=== PATIENT | female | born 1960 | race African-American/Black ===

== ENCOUNTER 2016-09-03 12:48 | Inpatient (IN) | payer OTHER ==
[2016-09-03 14:58] VITALS: BMI 45.7
--- NOTE | 2016-09-03 16:34 | HP ---
CIWA Score - CIWA Score Nausea/Vomitin-Mild Nausea/No Vomiting Muscle Tremors: 4-Moderate,w/Arms Extend Anxiety: 4-Mod. Anxious/Guarded Agitation: 4-Moderately Restless Paroxysmal Sweats: 1-Minimal Palms Moist Orientation: 0-Oriented Tacttile Disturbances: 0-None Auditory Disturbances: 0-None Visual Disturbances: 0-None Headache: 2-Mild CIWA-Ar Total Score: 16 Admission ROS BHS - HPI Chief Complaint: withdrawal sx Allergies/Adverse Reactions: Allergies Allergy/AdvReac Type Severity Reaction Status Date / Time Sulfa (Sulfonamide Allergy Hives Verified 09/03/16 15:27 Antibiotics) History of Present Illness: 56 years old female with long history of alcohol cocaine dependence, has hypertension diabetes ii asthma and depression is admitted to detox Exam Limitations: No Limitations - Ebola screening Have you traveled outside of the country in the last 21 days: No Have you had contact with anyone from an Ebola affected area: No Have you been sick,other than usual withdrawal symptoms: No Do you have a fever: No - Review of Systems Constitutional: Chills, Changes in sleep, Weight Stable EENT: reports: No Symptoms Reported Respiratory: reports: SOB with Exertion Cardiac: reports: No Symptoms Reported GI: reports: Nausea, Poor Fluid Intake, Abdominal cramping : reports: No Symptoms Reported Musculoskeletal: reports: No Symptoms Reported Integumentary: reports: No Symptoms Reported Neuro: reports: Tremors Endocrine: reports: No Symptoms Reported Hematology: reports: No Symptoms Reported Psychiatric: reports: Judgement Intact, Orientated x3, Depressed Other Systems: Reviewed and Negative Patient History - Patient Medical History Hx Anemia: No Hx Asthma: Yes Hx Chronic Obstructive Pulmonary Disease (COPD): No Hx Cancer: No Hx Cardiac Disorders: No Hx Congestive Heart Failure: No Hx Hypertension: Yes Hx Hypercholesterolemia: Yes (ON MEDS) Hx Pacemaker: No HX Cerebrovascular Accident: No Hx Seizures: No Hx Dementia: No Hx Diabetes: Yes (BGM 193) Hx Gastrointestinal Disorders: No Hx Liver Disease: No Hx Genitourinary Disorders: No Hx Sexually Transmitted Disorders: No Hx Renal Disease (ESRD): No Hx Thyroid Disease: No Hx Human Immunodeficiency Virus (HIV): No (negative) Hx Hepatitis C: No Hx Depression: Yes Hx Suicide Attempt: No Hx Bipolar Disorder: No Hx Schizophrenia: No - Patient Surgical History Past Surgical History: Yes Hx Neurologic Surgery: No Hx Cataract Extraction: No Hx Cardiac Surgery: Yes (at age of 8yrs old) Hx Lung Surgery: No Hx Breast Surgery: No Hx Breast Biopsy: No Hx Abdominal Surgery: No Hx Appendectomy: No Hx Cholecystectomy: No Hx Genitourinary Surgery: No Hx Section: No Hx Orthopedic Surgery: No Hx Hysterectomy: No Anesthesia Reaction: No - PPD History Previous Implant?: No Documented Results: Positive w/o proof Implanted On Prior [facility] Admission?: No PPD to be Administered?: No - Reproductive History Patient is a Female of Child Bearing Age (11 -55 yrs old): Yes Last Menstrual Period: 09/01/16 Patient : No - Smoking Cessation Smoking history: Former smoker Have you smoked in the past 12 months: No If you are a former smoker, when did you quit?: 20yrs ago Cigars Per Day: 0 Hx Chewing Tobacco Use: No Initiated information on smoking cessation: No - Substance & Tx. History Hx Alcohol Use: Yes Hx Substance Use: Yes Substance Use Type: Alcohol, Cocaine Hx Substance Use Treatment: Yes - Substances Abused Alcohol Route: Oral Frequency: Daily Amount used: vodka(2 pints) Age of first use: 32 Date of Last Use: 09/02/16 Cocaine Route: Inhalation Frequency: Daily Amount used: 8 ball Age of first use: 32 Date of Last Use: 09/09/16 Family Disease History - Family Disease History Family Disease History: CA: Mother (), Other: Father (ESTRANGED), Sister () Admission Physical Exam BHS - Vital Signs Vital Signs: Vital Signs - 24 hr 09/03/16 14:56 Temperature 97 F L Pulse Rate 81 Respiratory 20 Rate Blood Pressure 112/67 - Physical General Appearance: Yes: Appropriately Dressed, Mild Distress, Obese, Tremorous , Irritable, Sweating, Anxious HEENTM: Yes: Hearing grossly Normal, Normal ENT Inspection, Normocephalic, Normal Voice Respiratory: Yes: Chest Non-Tender, No Respiratory Distress, No Accessory Muscle Use, Wheezing, Expiration Neck: Yes: Supple, Trachea in good position Breast: Yes: Breasts Symetrical Cardiology: Yes: Regular Rhythm, Regular Rate, S1, S2 Abdominal: Yes: Non Tender, Soft Genitourinary: Yes: Within Normal Limits Back: Yes: Normal Inspection Musculoskeletal: Yes: full range of Motion, Gait Steady Extremities: Yes: Normal Range of Motion, Non-Tender, Tremors Neurological: Yes: Alert, Motor Strength 5/5, Normal Mood/Affect, Normal Response Integumentary: Yes: Warm Lymphatic: Yes: Within Normal Limits - Diagnostic (1) Alcohol dependence with uncomplicated withdrawal Current Visit: Yes Status: Acute (2) COPD with asthma Current Visit: Yes Status: Acute (3) Hypercholesteremia Current Visit: Yes Status: Acute (4) Hypertension Current Visit: Yes Status: Acute Qualifiers: Hypertension type: essential hypertension Qualified Code(s): I10 - Essential (primary) hypertension Comment: LISINOPRIL+METOPROLOL (5) Positive PPD, treated Current Visit: Yes Status: Acute (6) Diabetes mellitus, type II, insulin dependent Current Visit: Yes Status: Acute Comment: BGM BID BEFORE BREAKFAST+BEFORE BED TIME LANTUS 40 UNITS HS NOVOLOG 20 UNITS ACBK Cleared for Admission S - Detox or Rehab S Level of Care: Medically Managed Detox Regimen/Protocol: Librium S Breath Alcohol Content Breath Alcohol Content: 0 Urine Pregancy Test - Result Urine Test Results: Negative- NO Line Present Urine Drug Screen - Results Drug Screen Negative: No Urine Drug Screen Results: STONE-Cocaine
[2016-09-03] MEDS ORDERED: P-EPHED 60MG/TRIPROLIDI 2.5MG TABLET PO PRN (16:35)
[2016-09-03] MEDS ORDERED: MAGNESIUM CITRATE 300 ML BOTTLE PO PRN (16:35)
[2016-09-03] MEDS ORDERED: chlordiazePOXIDE HCL 25 MG CAPSULE PO PRN (16:35)
[2016-09-03] MEDS ORDERED: MAG HYDROX/AL HYDROX/SIMETH 30 ML UNIT-DOSE CUP PO PRN (16:35)
[2016-09-03] MEDS ORDERED: IBUPROFEN 400 MG TABLET (FP) PO PRN (16:35)
[2016-09-03] MEDS ORDERED: hydrOXYzine PAMOATE 50 MG CAPSULE (FP) PO PRN (16:35)
[2016-09-03] MEDS ORDERED: ACETAMINOPHEN 325 MG TABLET (FP) PO PRN (16:35)
[2016-09-03] MEDS ORDERED: guaiFENesin/D-METHORPHAN HB 10 ML UNIT-DOSE CUPS PO PRN (16:35)
[2016-09-03] MEDS ORDERED: MAGNESIUM HYDROX 2400MG/30ML ORAL SUSPENSION 30 ML CUP PO PRN (16:35)
[2016-09-03] MEDS ORDERED: LOPERAMIDE HCL 2 MG CAPSULE PO PRN (16:35)
[2016-09-03] MEDS ORDERED: MENTHOL/PHENOL 1 EACH UD MM PRN (16:35)
[2016-09-03] MEDS ORDERED: ALBUTEROL SO4 2.5/IPRATROPIUM 0.5 INH SOL 3 ML VIAL.NEB. NEB PRN (16:36)
[2016-09-03] MEDS ORDERED: ALBUTEROL SO4 6.7 GM HFA INHALER IH PRN (16:36)
[2016-09-03 20:00] LABS: URINE APPEARANCE CLEAR; URINE BILIRUBIN NEGATIVE (NEGATIVE); URINE COLOR YELLOW; URINE GLUCOSE (UA) 1+ (NEGATIVE); URINE KETONE NEGATIVE (NEGATIVE); URINE LEUK ESTERASE NEGATIVE (NEGATIVE); URINE NITRITE NEGATIVE (NEGATIVE); URINE PROTEIN NEGATIVE (NEGATIVE); URINE UROBILINOGEN NEGATIVE E.U./dl (0.2-1.0)
[2016-09-03 20:10] LABS: URINE BLOOD 3+ (NEGATIVE)
[2016-09-03 20:13] LABS: URINE RBC 6 /hpf (0-3); URINE WBC <1 /hpf (3-5)
[2016-09-03] MEDS ORDERED: diazePAM 5 MG TABLET PO PRN (20:38)
[2016-09-03] MEDS ORDERED: diazePAM 5 MG TABLET PO ONE (20:38)
--- NOTE | 2016-09-03 20:41 | PN ---
[facility] Progress Note Note: patient brought down to [facility] from [facility] by staff patient reports that she prefers valium detox regiment discontinue librium regimen begin valium regimen continue detox
[2016-09-03] MEDS: INSULIN DETEMIR 100 UNITS/ML MDV SQ SCH (21:33)
[2016-09-03] MEDS: INSULIN SLIDING SCALE (NOVOLOG) 1 VIAL SQ SCH (21:36)
[2016-09-03] MEDS: BUDESONIDE/FORMETEROL FUMARATE 80/4.5 mcg INHALER IH SCH (22:32)
[2016-09-03] MEDS: diazePAM 5 MG TABLET PO SCH (22:33)
[2016-09-03] MEDS: MONTELUKAST NA 10 MG TABLET PO SCH (22:33)
[2016-09-03] MEDS: APIXABAN 5 MG TABLET PO SCH (22:33)
[2016-09-03] MEDS: THIAMINE HCL 100 MG TABLET (FP) PO SCH (22:33)
[2016-09-03] MEDS: ATORVASTATIN CA 40 MG TABLET (FP) PO SCH (22:33)
[2016-09-03] MEDS: METOPROLOL TARTRATE 25 MG TABLET (FP) PO SCH (22:34)
[2016-09-03] MEDS ORDERED: chlordiazePOXIDE HCL 25 MG CAPSULE PO SCH (23:00)
[2016-09-04] MEDS: diazePAM 5 MG TABLET PO SCH ×3 (06:33→23:03)
[2016-09-04] MEDS ORDERED: Insulin (LOG) Aspart 100 UNITS/ML VIAL SQ SCH (07:00)
[2016-09-04] MEDS ORDERED: INSULIN (NOVOLOG) ASPART 100 UNITS/ML 10ML VIAL SQ SCH (07:00)
[2016-09-04] MEDS ORDERED: INSULIN (NOVOLOG) ASPART 100 UNITS/ML 10ML VIAL SQ ONE (08:30)
[2016-09-04] MEDS: INSULIN SLIDING SCALE (NOVOLOG) 1 VIAL SQ SCH ×4 (08:37→23:45)
[2016-09-04 10:45] LABS: MCHC 32.6 g/dl (32.0-36.0); MEAN PLT VOLUME 9.4 fl (7.5-11.1); PLATELET COUNT 305 K/MM3 (134-434); RDW 14.7 % (11.6-15.6); WHITE BLOOD COUNT 10.6 K/mm3 (4.0-10.0)
[2016-09-04 10:51] LABS: INR 1.26 (0.82-1.09); PROTHROMBIN TIME (PATIENT) 13.9 SEC (9.98-11.88)
[2016-09-04] MEDS: BUDESONIDE/FORMETEROL FUMARATE 80/4.5 mcg INHALER IH SCH ×2 (11:34→22:54)
[2016-09-04] MEDS: APIXABAN 5 MG TABLET PO SCH ×2 (11:35→22:54)
[2016-09-04] MEDS: METOPROLOL TARTRATE 25 MG TABLET (FP) PO SCH ×2 (11:35→22:53)
[2016-09-04] MEDS: LISINOPRIL 20 MG TABLET (FP) PO SCH (11:35)
[2016-09-04] MEDS: PRENATAL VITAMINS W/ FOLIC ACID TABLET (FP) PO SCH (11:36)
[2016-09-04 11:57] LABS: ALBUMIN 4.2 g/dl (3.4-5.0); CALCIUM 8.9 mg/dL (8.5-10.1)
[2016-09-04 12:01] LABS: BILIRUBIN,TOTAL 0.4 mg/dL (0.2-1.0); CREATININE 1.1 mg/dL (0.55-1.02); TOT PROT 7.3 g/dl (6.4-8.2)
[2016-09-04] MEDS ORDERED: INSULIN (NOVOLOG) ASPART 100 UNITS/ML 10ML VIAL ONE ×3 (12:14→23:41)
[2016-09-04] MEDS ORDERED: COLLOIDAL OATMEAL 1 BAR EACH TP PRN (12:35)
--- NOTE | 2016-09-04 14:25 | PN ---
[facility] CIWA - CIWA Score Nausea/Vomitin Muscle Tremors: 3 Anxiety: 3 Agitation: 2 Paroxysmal Sweats: 1-Minimal Palms Moist Orientation: 0-Oriented Tacttile Disturbances: 1-Very Mild Itch/Numbness Auditory Disturbances: 1-Very Mild Visual Disturbances: 1-Very Mild Sensitivity Headache: 2-Mild CIWA-Ar Total Score: 17 BHS Progress Note (SOAP) Subjective: ALERT,IRRITABLE,ANXIOUS,INTERRUPTED SLEEP,TREMOR Objective: 09/04/16 14:22 Vital Signs Temperature 97.3 F L 09/04/16 10:41 Pulse Rate 74 09/04/16 10:41 Respiratory Rate 16 09/04/16 10:41 Blood Pressure 134/69 09/04/16 10:41 O2 Sat by Pulse Oximetry (%) EKG NSR WITH RARE APC NO CHEST PAIN,NO SOB,NO DIZZINESS Laboratory Last Values WBC 10.6 K/mm3 (4.0-10.0) H 09/04/16 06:00 RBC 4.82 M/mm3 (3.60-5.2) 09/04/16 06:00 Hgb 14.0 GM/dL (10.7-15.3) 09/04/16 06:00 Hct 42.9 % (32.4-45.2) 09/04/16 06:00 MCV 89.0 fl (80-96) 09/04/16 06:00 MCHC 32.6 g/dl (32.0-36.0) 09/04/16 06:00 RDW 14.7 % (11.6-15.6) 09/04/16 06:00 Plt Count 305 K/MM3 (134-434) 09/04/16 06:00 MPV 9.4 fl (7.5-11.1) 09/04/16 06:00 INR 1.26 (0.82-1.09) H 09/04/16 08:13 Sodium 141 mmol/L (136-145) 09/04/16 06:00 Potassium 3.8 mmol/L (3.5-5.1) 09/04/16 06:00 Chloride 105 mmol/L (98-107) 09/04/16 06:00 Carbon Dioxide 29 mmol/L (21-32) 09/04/16 06:00 Anion Gap 7 (8-16) L 09/04/16 06:00 BUN 15 mg/dL (7-18) 09/04/16 06:00 Creatinine 1.1 mg/dL (0.55-1.02) H D 09/04/16 06:00 Creat Clearance w eGFR 51.76 (>60) 09/04/16 06:00 POC Glucometer 221 UNITS (()) 09/04/16 11:39 Random Glucose 155 mg/dL (74-106) H 09/04/16 06:00 Calcium 8.9 mg/dL (8.5-10.1) 09/04/16 06:00 Total Bilirubin 0.4 mg/dL (0.2-1.0) D 09/04/16 06:00 AST 13 U/L (15-37) L 09/04/16 06:00 ALT 27 U/L (12-78) 09/04/16 06:00 Alkaline Phosphatase 96 U/L (45-117) 09/04/16 06:00 Total Protein 7.3 g/dl (6.4-8.2) 09/04/16 06:00 Albumin 4.2 g/dl (3.4-5.0) 09/04/16 06:00 Urine Color Yellow 09/03/16 19:36 Urine Appearance Clear 09/03/16 19:36 Urine pH 5.0 (5.0-8.0) 09/03/16 19:36 Ur Specific [place] 1.025 (1.001-1.035) 09/03/16 19:36 Urine Protein Negative (NEGATIVE) 09/03/16 19:36 Urine Glucose (UA) 1+ (NEGATIVE) H 09/03/16 19:36 Urine Ketones Negative (NEGATIVE) 09/03/16 19:36 Urine Blood 3+ (NEGATIVE) H 09/03/16 19:36 Urine Nitrite Negative (NEGATIVE) 09/03/16 19:36 Urine Bilirubin Negative (NEGATIVE) 09/03/16 19:36 Urine Urobilinogen Negative E.U./dl (0.2-1.0) 09/03/16 19:36 Ur Leukocyte Esterase Negative (NEGATIVE) 09/03/16 19:36 Urine RBC 6 /hpf (0-3) 09/03/16 19:36 Urine WBC <1 /hpf (3-5) 09/03/16 19:36 Ur Epithelial Cells Few /hpf (FEW) 09/03/16 19:36 Assessment: 09/04/16 14:24 WITHDRAWAL SYMPTOM Plan: CONTINUE DETOX,BGM MONITORING WITH INSULIN COVERAGE
[2016-09-04] MEDS: MONTELUKAST NA 10 MG TABLET PO SCH (22:53)
[2016-09-04] MEDS: ATORVASTATIN CA 40 MG TABLET (FP) PO SCH (22:53)
[2016-09-04] MEDS: THIAMINE HCL 100 MG TABLET (FP) PO SCH (22:54)
[2016-09-04] MEDS ORDERED: chlordiazePOXIDE HCL 25 MG CAPSULE PO SCH (23:00)
[2016-09-04] MEDS: INSULIN DETEMIR 100 UNITS/ML MDV SQ SCH (23:01)
[2016-09-05] MEDS: INSULIN (NOVOLOG) ASPART 100 UNITS/ML 10ML VIAL SQ SCH (08:31)
[2016-09-05] MEDS: INSULIN SLIDING SCALE (NOVOLOG) 1 VIAL SQ SCH ×4 (08:32→23:26)
[2016-09-05] MEDS: METOPROLOL TARTRATE 25 MG TABLET (FP) PO SCH ×2 (10:26→22:24)
[2016-09-05] MEDS: APIXABAN 5 MG TABLET PO SCH ×2 (10:26→22:24)
[2016-09-05] MEDS: LISINOPRIL 20 MG TABLET (FP) PO SCH (10:26)
[2016-09-05] MEDS: PRENATAL VITAMINS W/ FOLIC ACID TABLET (FP) PO SCH (10:27)
[2016-09-05] MEDS: diazePAM 5 MG TABLET PO SCH ×2 (10:27→22:26)
[2016-09-05] MEDS: BUDESONIDE/FORMETEROL FUMARATE 80/4.5 mcg INHALER IH SCH ×2 (10:27→22:26)
[2016-09-05] MEDS ORDERED: INSULIN (NOVOLOG) ASPART 100 UNITS/ML 10ML VIAL ONE ×2 (11:26→16:54)
--- NOTE | 2016-09-05 13:01 | PN ---
S COWS - Scale Resting Pulse: 0= [place] 80 or Below Sweatin=Flushed/Facial Moisture Restless Observation: 3= Extraneous Movement Pupil Size: 1= Pupils >than Normal Bone or Joint Aches: 2= Severe Diffuse Aches Runny Nose/ Eye Tearin= Runny Nose/Eyes GI Upset > 30mins: 2= Nausea/Diarrhea Tremor Observation of Outstretched Hands: 2= Slight Tremor Visible Yawning Observation: 1= 1-2x During Session Anxiety or Irritability: 2=Irritable/Anxious Goose Flesh Skin: 0=Smooth Skin COWS Score: 17 BHS Progress Note (SOAP) Subjective: ALERT,IRRITABLE,ANXIOUS,INTERRUPTED SLEEP,PAIN IN THE BODY AND BACK Objective: 09/05/16 12:58 Vital Signs Temperature 97.7 F 09/05/16 10:04 Pulse Rate 67 09/05/16 10:04 Respiratory Rate 18 09/05/16 10:04 Blood Pressure 138/90 09/05/16 10:04 O2 Sat by Pulse Oximetry (%) 09/05/16 12:58 Laboratory Last Values WBC 10.6 K/mm3 (4.0-10.0) H 09/04/16 06:00 RBC 4.82 M/mm3 (3.60-5.2) 09/04/16 06:00 Hgb 14.0 GM/dL (10.7-15.3) 09/04/16 06:00 Hct 42.9 % (32.4-45.2) 09/04/16 06:00 MCV 89.0 fl (80-96) 09/04/16 06:00 MCHC 32.6 g/dl (32.0-36.0) 09/04/16 06:00 RDW 14.7 % (11.6-15.6) 09/04/16 06:00 Plt Count 305 K/MM3 (134-434) 09/04/16 06:00 MPV 9.4 fl (7.5-11.1) 09/04/16 06:00 INR 1.26 (0.82-1.09) H 09/04/16 08:13 Sodium 141 mmol/L (136-145) 09/04/16 06:00 Potassium 3.8 mmol/L (3.5-5.1) 09/04/16 06:00 Chloride 105 mmol/L (98-107) 09/04/16 06:00 Carbon Dioxide 29 mmol/L (21-32) 09/04/16 06:00 Anion Gap 7 (8-16) L 09/04/16 06:00 BUN 15 mg/dL (7-18) 09/04/16 06:00 Creatinine 1.1 mg/dL (0.55-1.02) H D 09/04/16 06:00 Creat Clearance w eGFR 51.76 (>60) 09/04/16 06:00 POC Glucometer 214 UNITS (()) 09/05/16 11:22 Random Glucose 155 mg/dL (74-106) H 09/04/16 06:00 Hemoglobin A1c % 9.1 % (4.8-6.0) H D 09/05/16 07:16 Calcium 8.9 mg/dL (8.5-10.1) 09/04/16 06:00 Total Bilirubin 0.4 mg/dL (0.2-1.0) D 09/04/16 06:00 AST 13 U/L (15-37) L 09/04/16 06:00 ALT 27 U/L (12-78) 09/04/16 06:00 Alkaline Phosphatase 96 U/L (45-117) 09/04/16 06:00 Total Protein 7.3 g/dl (6.4-8.2) 09/04/16 06:00 Albumin 4.2 g/dl (3.4-5.0) 09/04/16 06:00 Urine Color Yellow 09/03/16 19:36 Urine Appearance Clear 09/03/16 19:36 Urine pH 5.0 (5.0-8.0) 09/03/16 19:36 Ur Specific [place] 1.025 (1.001-1.035) 09/03/16 19:36 Urine Protein Negative (NEGATIVE) 09/03/16 19:36 Urine Glucose (UA) 1+ (NEGATIVE) H 09/03/16 19:36 Urine Ketones Negative (NEGATIVE) 09/03/16 19:36 Urine Blood 3+ (NEGATIVE) H 09/03/16 19:36 Urine Nitrite Negative (NEGATIVE) 09/03/16 19:36 Urine Bilirubin Negative (NEGATIVE) 09/03/16 19:36 Urine Urobilinogen Negative E.U./dl (0.2-1.0) 09/03/16 19:36 Ur Leukocyte Esterase Negative (NEGATIVE) 09/03/16 19:36 Urine RBC 6 /hpf (0-3) 09/03/16 19:36 Urine WBC <1 /hpf (3-5) 09/03/16 19:36 Ur Epithelial Cells Few /hpf (FEW) 09/03/16 19:36 RPR Titer Nonreactive (NONREACTIVE) 09/04/16 06:00 Assessment: 09/05/16 12:58 09/05/16 13:01 CONTINUE DETOX,BGM MONITORING,FOLLOW UP WITH PMD FOR DIABETIC MANAGEMENT HB A1C IS 9.1 Plan: CONTINUE DETOX,BGM MONITORING WITH INSULIN COVERAGE
[2016-09-05] MEDS: VITAMINS A AND D TOPICAL OINTMENT 60 GM TUBE TP SCH (19:19)
[2016-09-05] MEDS: THIAMINE HCL 100 MG TABLET (FP) PO SCH (22:24)
[2016-09-05] MEDS: MONTELUKAST NA 10 MG TABLET PO SCH (22:24)
[2016-09-05] MEDS: ATORVASTATIN CA 40 MG TABLET (FP) PO SCH (22:24)
[2016-09-05] MEDS: diphenhydrAMINE HCL 50 MG CAPSULE PO PRN (22:27)
[2016-09-05] MEDS ORDERED: chlordiazePOXIDE 5 MG CAPSULE PO SCH (23:00)
[2016-09-05] MEDS: INSULIN DETEMIR 100 UNITS/ML MDV SQ SCH (23:26)
[2016-09-06] MEDS: VITAMINS A AND D TOPICAL OINTMENT 60 GM TUBE TP SCH ×5 (00:59→23:10)
[2016-09-06] MEDS ORDERED: INSULIN (NOVOLOG) ASPART 100 UNITS/ML 10ML VIAL ONE ×4 (07:38→21:18)
[2016-09-06] MEDS: INSULIN (NOVOLOG) ASPART 100 UNITS/ML 10ML VIAL SQ SCH (07:58)
[2016-09-06] MEDS: INSULIN SLIDING SCALE (NOVOLOG) 1 VIAL SQ SCH ×4 (08:02→22:39)
[2016-09-06] MEDS: diazePAM 5 MG TABLET PO SCH ×2 (10:36→23:09)
[2016-09-06] MEDS: BUDESONIDE/FORMETEROL FUMARATE 80/4.5 mcg INHALER IH SCH ×2 (10:36→22:39)
[2016-09-06] MEDS: LISINOPRIL 20 MG TABLET (FP) PO SCH (10:36)
[2016-09-06] MEDS: APIXABAN 5 MG TABLET PO SCH ×2 (10:36→22:36)
[2016-09-06] MEDS: PRENATAL VITAMINS W/ FOLIC ACID TABLET (FP) PO SCH (10:36)
[2016-09-06] MEDS: METOPROLOL TARTRATE 25 MG TABLET (FP) PO SCH ×2 (10:36→22:36)
--- NOTE | 2016-09-06 10:58 | PN ---
[facility] Progress Note (SOAP) Subjective: sweats interrupted sleep Objective: 09/06/16 10:57 Vital Signs Temperature 97.5 F L 09/06/16 10:19 Pulse Rate 75 09/06/16 10:19 Respiratory Rate 18 09/06/16 10:19 Blood Pressure 112/66 09/06/16 10:19 O2 Sat by Pulse Oximetry (%) awake/alert ambulating no acute distress Assessment: 09/06/16 10:57 withdrawal sx Plan: continue detox d/c in am
[2016-09-06] MEDS: MONTELUKAST NA 10 MG TABLET PO SCH (22:36)
[2016-09-06] MEDS: diphenhydrAMINE HCL 50 MG CAPSULE PO PRN (22:36)
[2016-09-06] MEDS: ATORVASTATIN CA 40 MG TABLET (FP) PO SCH (22:36)
[2016-09-06] MEDS: THIAMINE HCL 100 MG TABLET (FP) PO SCH (22:36)
[2016-09-06] MEDS: INSULIN DETEMIR 100 UNITS/ML MDV SQ SCH (22:39)
[2016-09-06] MEDS ORDERED: chlordiazePOXIDE HCL 10 MG CAPSULE PO SCH (23:00)
[2016-09-07] MEDS: INSULIN (NOVOLOG) ASPART 100 UNITS/ML 10ML VIAL SQ SCH (07:46)
[2016-09-07] MEDS: INSULIN SLIDING SCALE (NOVOLOG) 1 VIAL SQ SCH ×2 (07:47→11:29)
--- NOTE | 2016-09-07 09:27 | DS ---
[facility] Detox Discharge Summary Admission Date: 09/03/16 Discharge Date: 09/07/16 - History Present History: Alcohol Dependence, Cocaine Dependence - Physical Exam Results Vital Signs: Vital Signs Temperature 97.5 F L 09/07/16 06:51 Pulse Rate 60 09/07/16 06:51 Respiratory Rate 16 09/07/16 06:51 Blood Pressure 129/84 09/07/16 06:51 O2 Sat by Pulse Oximetry (%) - Treatment Hospital Course: Detox Protocol Followed, Detoxed Safely, Responded well, Discharged Condition Good - Medication Discharge Medications: Ambulatory Orders Atorvastatin Ca [Lipitor] 40 mg PO HS #30 tablet 04/04/15 Albuterol Sulfate Inhaler - [Ventolin HFA Inhaler -] 2 inh PO Q4H PRN #1 inh Apixaban [Eliquis -] 5 mg PO Q12H #30 tablet 11/18/15 Budesonide/Formeterol Fumarate [SYMBICORT 80/4.5mcg -] 2 puff IH BID #1 inhaler 11/18/15 Fluticasone/Salmeterol [Advair 250-50 Diskus] 1 each IH BID #1 disk.w.dev Insulin (Levemir) [Levemir Vial] 40 units SQ HS #1 ml 11/18/15 Lisinopril [Prinivil] 20 mg PO DAILY #30 tablet 11/18/15 Metoprolol Tartrate [Lopressor -] 25 mg PO BID #60 tablet 11/18/15 Montelukast Na [Singulair -] 10 mg PO HS #30 tablet 11/18/15 Tiotropium [place] [Spiriva] 1 inh PO DAILY #1 inh 11/18/15 Insulin Lispro [Humalog] 20 unit SQ ACBK 09/03/16 - Diagnosis (1) Alcohol dependence with uncomplicated withdrawal Current Visit: Yes Status: Chronic (2) COPD with asthma Current Visit: Yes Status: Chronic (3) Diabetes mellitus, type II, insulin dependent Current Visit: Yes Status: Chronic (4) Hypercholesteremia Current Visit: Yes Status: Chronic (5) Hypertension Current Visit: Yes Status: Chronic Qualifiers: Hypertension type: essential hypertension Qualified Code(s): I10 - Essential (primary) hypertension (6) Cocaine dependence Current Visit: Yes Status: Chronic Qualifiers: Substance use status: uncomplicated Qualified Code(s): F14.20 - Cocaine dependence, uncomplicated (7) Diabetes mellitus Current Visit: Yes Status: Chronic Qualifiers: Diabetes mellitus type: type 2 Diabetes mellitus complication status: without complication (8) History of atrial fibrillation Current Visit: Yes Status: Chronic - AMA Did Patient Leave Against Medical Advice: No
[2016-09-07] MEDS ORDERED: diazePAM 5 MG TABLET PO SCH (10:00)
[2016-09-07] MEDS: BUDESONIDE/FORMETEROL FUMARATE 80/4.5 mcg INHALER IH SCH (10:46)
[2016-09-07] MEDS: PRENATAL VITAMINS W/ FOLIC ACID TABLET (FP) PO SCH (10:46)
[2016-09-07] MEDS: APIXABAN 5 MG TABLET PO SCH (10:46)
[2016-09-07] MEDS: LISINOPRIL 20 MG TABLET (FP) PO SCH (10:48)
[2016-09-07] MEDS: METOPROLOL TARTRATE 25 MG TABLET (FP) PO SCH (10:48)
[2016-09-07] MEDS: VITAMINS A AND D TOPICAL OINTMENT 60 GM TUBE TP SCH ×2 (10:49→11:29)
[2016-09-07] MEDS ORDERED: INSULIN (NOVOLOG) ASPART 100 UNITS/ML 10ML VIAL ONE (11:25)
[2016-09-07 11:28] VITALS: BP 133/56; PULSE 73; TEMP 98.6
--- NOTE | 2016-09-07 16:59 | EKG ---
Test Reason : Blood Pressure : / mmHG Vent. Rate : 093 BPM Atrial Rate : 089 BPM P-R Int : 000 ms QRS Dur : 086 ms QT Int : 368 ms P-R-T Axes : 069 -04 069 degrees QTc Int : 457 ms UNDETERMINED RHYTHM , LIKELY SINUS RHYTHM WITH ATRIAL PREMATURE COMPLEXES OTHERWISE NORMAL ECG NO PREVIOUS ECGS AVAILABLE Confirmed by JOHN HARDING MD ([id number]) on 09/07/2016 4:59:03 PM Referred By: Confirmed By:JOHN HARDING MD
== END 2016-09-07 11:29 | disposition other institution (70) | DRG 774 ==
LOC: YASAS 12:48 → Y6N 16:08
PROVIDERS: ADMIT Internal Medicine Addiction Medicine; ATTEND Internal Medicine Addiction Medicine
PROC: HZ2ZZZZ Detoxification Services for Substance Abuse Treatment (ICD-10-PCS; principal; 2016-09-07)
DX: F10.230 Alcohol dependence with withdrawal, uncomplicated (principal); F14.20 Cocaine dependence, uncomplicated; F32.9 Major depressive disorder, single episode, unspecified; I10 Essential (primary) hypertension; I48.2 Chronic atrial fibrillation; E11.9 Type 2 diabetes mellitus without complications; Z79.4 Long term (current) use of insulin; E78.00 Pure hypercholesterolemia, unspecified; R76.11 Nonspecific reaction to tuberculin skin test without active tuberculosis
CPT/HCPCS: 36415; 71020-TC; 80053; 81003; 81015; 83036; 85027; 85610; 86593; 93005; 93010; 94640

== ENCOUNTER 2016-09-07 11:40 | Inpatient (IN) | payer OTHER ==
[2016-09-07] MEDS ORDERED: LOPERAMIDE HCL 2 MG CAPSULE PO PRN (12:33)
[2016-09-07] MEDS ORDERED: MAGNESIUM CITRATE 300 ML BOTTLE PO PRN (12:33)
[2016-09-07] MEDS ORDERED: P-EPHED 60MG/TRIPROLIDI 2.5MG TABLET PO PRN (12:33)
[2016-09-07] MEDS ORDERED: MAGNESIUM HYDROX 2400MG/30ML ORAL SUSPENSION 30 ML CUP PO PRN (12:33)
[2016-09-07] MEDS ORDERED: guaiFENesin/D-METHORPHAN HB 10 ML UNIT-DOSE CUPS PO PRN (12:33)
[2016-09-07] MEDS ORDERED: IBUPROFEN 400 MG TABLET (FP) PO PRN (12:33)
[2016-09-07] MEDS ORDERED: ALBUTEROL SO4 6.7 GM HFA INHALER IH PRN (12:36)
--- NOTE | 2016-09-07 12:40 | HP ---
[facility] Re[facility] Assess/Revision - Admission History Admitted to Rehab from: [facility] [place] Date of Admission to Rehab: 09/07/16 - Vital signs Vital Signs: Last Vital Signs Temp Pulse Resp BP Pulse Ox 98.2 F 73 20 121/65 09/07/16 14:23 09/07/16 14:23 09/07/16 14:23 09/07/16 14:23 - Findings Detox History & Physical reviewed: Yes Concur with findings: Yes
[2016-09-07] MEDS: ACLIDINIUM BROMIDE 400 MCG/INH AERO.POWD IH SCH ×2 (15:49→21:15)
[2016-09-07] MEDS: INSULIN (NOVOLOG) ASPART 100 UNITS/ML 10ML VIAL SQ SCH ×2 (17:09→21:11)
[2016-09-07] MEDS ORDERED: INSULIN (NOVOLOG) ASPART 100 UNITS/ML 10ML VIAL ONE ×2 (17:10→21:12)
[2016-09-07] MEDS ORDERED: PT OWN MED DRAWER 7, Y5N ONE ×2 (20:01→20:22)
[2016-09-07] MEDS: APIXABAN 5 MG TABLET PO SCH (20:02)
[2016-09-07] MEDS: THIAMINE HCL 100 MG TABLET (FP) PO SCH (21:09)
[2016-09-07] MEDS: MONTELUKAST NA 10 MG TABLET PO SCH (21:10)
[2016-09-07] MEDS: ATORVASTATIN CA 40 MG TABLET (FP) PO SCH (21:10)
[2016-09-07] MEDS: diphenhydrAMINE HCL 50 MG CAPSULE PO PRN (21:10)
[2016-09-07] MEDS: METOPROLOL TARTRATE 25 MG TABLET (FP) PO SCH (21:10)
[2016-09-07] MEDS: INSULIN DETEMIR 100 UNITS/ML MDV SQ SCH (21:12)
[2016-09-07] MEDS: BUDESONIDE/FORMETEROL FUMARATE 80/4.5 mcg INHALER IH SCH (21:15)
[2016-09-07] MEDS ORDERED: ALBUTEROL SO4 2.5/IPRATROPIUM 0.5 INH SOL 3 ML VIAL.NEB. NEB PRN (22:18)
[2016-09-07] MEDS: COLLOIDAL OATMEAL 1 BAR EACH TP PRN (22:36)
[2016-09-08] MEDS: INSULIN (NOVOLOG) ASPART 100 UNITS/ML 10ML VIAL SQ SCH ×4 (06:45→21:14)
[2016-09-08] MEDS ORDERED: INSULIN (NOVOLOG) ASPART 100 UNITS/ML 10ML VIAL SQ SCH (07:00)
[2016-09-08] MEDS ORDERED: INSULIN (NOVOLOG) ASPART 100 UNITS/ML 10ML VIAL ONE ×3 (07:06→17:02)
[2016-09-08] MEDS: APIXABAN 5 MG TABLET PO SCH ×2 (08:14→21:11)
[2016-09-08] MEDS ORDERED: PT OWN MED DRAWER 7, Y5N ONE ×3 (08:22→19:50)
[2016-09-08] MEDS: LISINOPRIL 20 MG TABLET (FP) PO SCH (09:41)
[2016-09-08] MEDS: PRENATAL VITAMINS W/ FOLIC ACID TABLET (FP) PO SCH (09:41)
[2016-09-08] MEDS: BUDESONIDE/FORMETEROL FUMARATE 80/4.5 mcg INHALER IH SCH ×2 (09:42→21:15)
[2016-09-08] MEDS: ACLIDINIUM BROMIDE 400 MCG/INH AERO.POWD IH SCH ×2 (09:42→21:16)
[2016-09-08] MEDS: METOPROLOL TARTRATE 25 MG TABLET (FP) PO SCH ×2 (10:12→21:11)
--- NOTE | 2016-09-08 10:20 | HP ---
Psychiatrist Admission - Data Date of interview: 09/08/16 Admission source: [facility] Identifying data: This is the second admission to [address] [place] [address] for this 56 years old single AA female,childles,unemployed,supported by [facility], resides with family. Medical History: HTN,COPD,DM,S/P Open heart surgery at 8 years old. Psychiatric History: denies psychiatric history or treatment,no suicidal attempts reported. Physical/Sexual Abuse/Trauma History: denies Vital Signs: Vital Signs - 24 hr 09/07/16 09/07/16 09/08/16 14:23 21:00 00:30 Temperature 98.2 F Pulse Rate 73 57 L Respiratory 20 20 Rate Blood Pressure 121/65 121/63 09/08/16 09/08/16 09/08/16 03:30 07:18 09:24 Temperature 97.6 F Pulse Rate 69 100 H Respiratory 20 18 Rate Blood Pressure 87/65 114/78 Allergies/Adverse Reactions: Allergies Allergy/AdvReac Type Severity Reaction Status Date / Time Sulfa (Sulfonamide Allergy Hives Verified 09/07/16 12:17 Antibiotics) Date of last physical exam: 09/07/16 Concur with the findings of this exam: Yes - Substance Abuse/Tx History Hx Alcohol Use: Yes (drinking since 37 years ) Hx Substance Use: Yes (reports sniffing cocaine since 37 yo,$500 at once) Substance Use Type: Alcohol, Cocaine Hx Substance Use Treatment: Yes (completed this program in Mar 2015) - Admission Criteria Previous failed treatment: Yes Poor recovery environment: Yes Comorbidities: Yes Lacks judgement: Yes Mental Status Exam - Mental Status Exam Alert and Oriented to: Time, Place, Person Cognitive Function: Grossly Intact Patient Appearance: Unkempt Mood: Sad Affect: Mood Congruent Patient Behavior: Cooperative Speech Pattern: Clear Voice Loudness: Normal Thought Process: Goal Oriented Thought Disorder: Not Present Hallucinations: Denies Suicidal Ideation: Denies Homicidal Ideation: Denies Insight/Judgement: Fair Sleep: Fair Appetite: Good Muscle strength/Tone: Normal Gait/Station: Normal Psychiatric Findings - Problem List ([place] 1, 2,3) (1) Alcohol dependence Current Visit: Yes Status: Chronic (2) COPD with asthma Current Visit: Yes Status: Chronic (3) Cocaine dependence Current Visit: Yes Status: Chronic Qualifiers: Substance use status: uncomplicated Qualified Code(s): F14.20 - Cocaine dependence, uncomplicated (4) Diabetes mellitus Current Visit: Yes Status: Chronic Qualifiers: Diabetes mellitus type: type 2 Diabetes mellitus complication status: without complication Comment: last BGM 163 (5) History of atrial fibrillation Current Visit: Yes Status: Chronic Comment: takes eliquis - Initial Treatment Plan Initial Treatment Plan: Consider antidepressants ,mood stabilizers if neededWill monitor progress.
--- NOTE | 2016-09-08 11:15 | PN ---
S Progress Note Note: complained of loose bowel movement and blood sting when wiping herself, Vital Signs Temperature 97.6 F 09/08/16 07:18 Pulse Rate 100 H 09/08/16 09:24 Respiratory Rate 18 09/08/16 07:18 Blood Pressure 114/78 09/08/16 09:24 O2 Sat by Pulse Oximetry (%) treatment d/c motrin cbc,cmp,inr in am close monitoring
[2016-09-08] MEDS: VITAMINS A AND D TOPICAL OINTMENT 60 GM TUBE TP SCH ×2 (12:39→17:10)
[2016-09-08] MEDS: ATORVASTATIN CA 40 MG TABLET (FP) PO SCH (21:11)
[2016-09-08] MEDS: diphenhydrAMINE HCL 50 MG CAPSULE PO PRN (21:11)
[2016-09-08] MEDS: MONTELUKAST NA 10 MG TABLET PO SCH (21:11)
[2016-09-08] MEDS: INSULIN DETEMIR 100 UNITS/ML MDV SQ SCH (21:14)
[2016-09-08] MEDS: THIAMINE HCL 100 MG TABLET (FP) PO SCH (21:16)
[2016-09-08] MEDS ORDERED: INSULIN DETEMIR 100 UNITS/ML MDV SQ ONE (22:57)
[2016-09-09] MEDS: VITAMINS A AND D TOPICAL OINTMENT 60 GM TUBE TP SCH ×4 (00:54→18:30)
[2016-09-09] MEDS: INSULIN (NOVOLOG) ASPART 100 UNITS/ML 10ML VIAL SQ SCH ×4 (06:51→21:19)
[2016-09-09] MEDS ORDERED: INSULIN (NOVOLOG) ASPART 100 UNITS/ML 10ML VIAL ONE ×3 (07:57→16:50)
[2016-09-09] MEDS: APIXABAN 5 MG TABLET PO SCH (07:59)
[2016-09-09] MEDS ORDERED: PT OWN MED DRAWER 7, Y5N ONE ×4 (08:27→21:10)
[2016-09-09] MEDS: PRENATAL VITAMINS W/ FOLIC ACID TABLET (FP) PO SCH (09:54)
[2016-09-09] MEDS: LISINOPRIL 20 MG TABLET (FP) PO SCH (09:54)
[2016-09-09] MEDS: BUDESONIDE/FORMETEROL FUMARATE 80/4.5 mcg INHALER IH SCH ×2 (09:54→21:15)
[2016-09-09] MEDS: METOPROLOL TARTRATE 25 MG TABLET (FP) PO SCH ×2 (09:54→21:15)
[2016-09-09 10:05] LABS: MCH 28.9 pg (25.7-33.7); MCHC 32.6 g/dl (32.0-36.0); MEAN CELL VOLUME 88.5 fl (80-96); MEAN PLT VOLUME 9.6 fl (7.5-11.1); PLATELET COUNT 255 K/MM3 (134-434); RDW 14.7 % (11.6-15.6); WHITE BLOOD COUNT 10.4 K/mm3 (4.0-10.0)
[2016-09-09 10:24] LABS: INR 1.49 (0.82-1.09); PROTHROMBIN TIME (PATIENT) 16.5 SEC (9.98-11.88)
[2016-09-09 10:41] LABS: ALBUMIN 3.7 g/dl (3.4-5.0)
[2016-09-09 11:25] LABS: BILIRUBIN,TOTAL 0.3 mg/dL (0.2-1.0); CALCIUM 8.9 mg/dL (8.5-10.1); TOT PROT 6.6 g/dl (6.4-8.2)
[2016-09-09] MEDS: ACLIDINIUM BROMIDE 400 MCG/INH AERO.POWD IH SCH ×2 (11:56→21:16)
--- NOTE | 2016-09-09 13:31 | PN ---
[facility] Progress Note Note: Inr 1.49 up from 1.26, pt. c/o bloody streaks in stool.she's on Eliquis Vital Signs - 8 hr 09/09/16 09/09/16 07:17 10:02 Temperature 97.1 F L Pulse Rate 80 82 Respiratory 18 Rate Blood Pressure 107/71 112/78 Laboratory Tests 09/09/16 09/09/16 09/09/16 06:50 09:20 09:20 WBC 10.4 H RBC 4.57 Hgb 13.2 Hct 40.5 MCV 88.5 MCHC 32.6 RDW 14.7 Plt Count 255 MPV 9.6 INR 1.49 H Sodium Potassium Chloride Carbon Dioxide Anion Gap BUN Creatinine Creat Clearance w eGFR POC Glucometer 247 Random Glucose Calcium Total Bilirubin AST ALT Alkaline Phosphatase Total Protein Albumin 09/09/16 09/09/16 09:20 11:52 WBC RBC Hgb Hct MCV MCHC RDW Plt Count MPV INR Sodium 139 Potassium 3.9 Chloride 102 Carbon Dioxide 28 Anion Gap 9 BUN 14 Creatinine 1.0 Creat Clearance w eGFR 57.78 POC Glucometer 321 Random Glucose 360 H* D Calcium 8.9 Total Bilirubin 0.3 D AST 13 L ALT 26 Alkaline Phosphatase 104 Total Protein 6.6 Albumin 3.7 labs noted P : D/C Eliquis Stool for occult blood
[2016-09-09 19:59] LABS: URINE APPEARANCE CLEAR; URINE BILIRUBIN NEGATIVE (NEGATIVE); URINE BLOOD NEGATIVE (NEGATIVE); URINE COLOR STRAW; URINE GLUCOSE (UA) 3+ (NEGATIVE); URINE KETONE NEGATIVE (NEGATIVE); URINE LEUK ESTERASE NEGATIVE (NEGATIVE); URINE NITRITE NEGATIVE (NEGATIVE); URINE PROTEIN NEGATIVE (NEGATIVE); URINE UROBILINOGEN NEGATIVE E.U./dl (0.2-1.0)
[2016-09-09] MEDS: MONTELUKAST NA 10 MG TABLET PO SCH (21:15)
[2016-09-09] MEDS: ATORVASTATIN CA 40 MG TABLET (FP) PO SCH (21:15)
[2016-09-09] MEDS: THIAMINE HCL 100 MG TABLET (FP) PO SCH (21:15)
[2016-09-09] MEDS: diphenhydrAMINE HCL 50 MG CAPSULE PO PRN (21:16)
[2016-09-09] MEDS: INSULIN DETEMIR 100 UNITS/ML MDV SQ SCH (21:19)
[2016-09-10] MEDS: VITAMINS A AND D TOPICAL OINTMENT 60 GM TUBE TP SCH ×4 (00:05→18:30)
[2016-09-10] MEDS ORDERED: PT OWN MED DRAWER 7, Y5N ONE ×2 (05:52→08:35)
[2016-09-10] MEDS: INSULIN (NOVOLOG) ASPART 100 UNITS/ML 10ML VIAL SQ SCH ×4 (08:06→21:09)
[2016-09-10] MEDS: METOPROLOL TARTRATE 25 MG TABLET (FP) PO SCH ×2 (10:03→21:08)
[2016-09-10] MEDS: PRENATAL VITAMINS W/ FOLIC ACID TABLET (FP) PO SCH (10:03)
[2016-09-10] MEDS: BUDESONIDE/FORMETEROL FUMARATE 80/4.5 mcg INHALER IH SCH ×2 (10:03→21:10)
[2016-09-10] MEDS: LISINOPRIL 20 MG TABLET (FP) PO SCH (10:03)
[2016-09-10] MEDS: ACLIDINIUM BROMIDE 400 MCG/INH AERO.POWD IH SCH (10:04)
[2016-09-10] MEDS ORDERED: INSULIN (NOVOLOG) ASPART 100 UNITS/ML 10ML VIAL ONE ×3 (11:57→22:53)
[2016-09-10] MEDS ORDERED: MAGNESIUM CITRATE 300 ML BOTTLE PO ONE (16:15)
[2016-09-10] MEDS: ATORVASTATIN CA 40 MG TABLET (FP) PO SCH (21:06)
[2016-09-10] MEDS: THIAMINE HCL 100 MG TABLET (FP) PO SCH (21:06)
[2016-09-10] MEDS: MONTELUKAST NA 10 MG TABLET PO SCH (21:06)
[2016-09-10] MEDS: diphenhydrAMINE HCL 50 MG CAPSULE PO PRN (21:07)
[2016-09-10] MEDS: INSULIN DETEMIR 100 UNITS/ML MDV SQ SCH (21:07)
[2016-09-10] MEDS ORDERED: INSULIN DETEMIR 100 UNITS/ML MDV SQ ONE (22:53)
[2016-09-11] MEDS: VITAMINS A AND D TOPICAL OINTMENT 60 GM TUBE TP SCH ×4 (00:15→18:05)
[2016-09-11] MEDS: INSULIN (NOVOLOG) ASPART 100 UNITS/ML 10ML VIAL SQ SCH ×4 (07:58→21:06)
[2016-09-11] MEDS ORDERED: PT OWN MED DRAWER 7, Y5N ONE ×5 (08:42→20:23)
[2016-09-11] MEDS: BUDESONIDE/FORMETEROL FUMARATE 80/4.5 mcg INHALER IH SCH ×2 (09:49→21:06)
[2016-09-11] MEDS: LISINOPRIL 20 MG TABLET (FP) PO SCH (09:50)
[2016-09-11] MEDS: METOPROLOL TARTRATE 25 MG TABLET (FP) PO SCH ×2 (09:50→21:08)
[2016-09-11] MEDS: PRENATAL VITAMINS W/ FOLIC ACID TABLET (FP) PO SCH (09:50)
[2016-09-11 10:43] LABS: INR 1.07 (0.82-1.09); PROTHROMBIN TIME (PATIENT) 11.8 SEC (9.98-11.88)
[2016-09-11] MEDS: COLLOIDAL OATMEAL 1 BAR EACH TP PRN (11:58)
--- NOTE | 2016-09-11 12:58 | PN ---
[facility] Progress Note Note: Laboratory Results - last 24 hr 09/10/16 09/10/16 09/10/16 16:56 21:05 22:35 INR POC Glucometer 304 225 Stool Occult Blood Positive 09/11/16 09/11/16 09/11/16 06:50 08:00 11:54 INR 1.07 POC Glucometer 240 290 Stool Occult Blood Hemoccult is + & INR is now WNL P : We'll continue to hold eliquis until Tuesday
[2016-09-11] MEDS ORDERED: INSULIN (NOVOLOG) ASPART 100 UNITS/ML 10ML VIAL ONE ×2 (17:14→21:05)
[2016-09-11] MEDS: INSULIN DETEMIR 100 UNITS/ML MDV SQ SCH (21:04)
[2016-09-11] MEDS: THIAMINE HCL 100 MG TABLET (FP) PO SCH (21:07)
[2016-09-11] MEDS: diphenhydrAMINE HCL 50 MG CAPSULE PO PRN (21:08)
[2016-09-11] MEDS: MONTELUKAST NA 10 MG TABLET PO SCH (21:08)
[2016-09-11] MEDS: ATORVASTATIN CA 40 MG TABLET (FP) PO SCH (21:08)
[2016-09-11] MEDS: HYDROCORTISONE 1% TOPICAL LOTION 118 ML BOTTLE TP PRN (22:25)
[2016-09-12] MEDS: VITAMINS A AND D TOPICAL OINTMENT 60 GM TUBE TP SCH ×4 (00:31→17:11)
[2016-09-12] MEDS: INSULIN (NOVOLOG) ASPART 100 UNITS/ML 10ML VIAL SQ SCH ×4 (08:00→21:11)
[2016-09-12] MEDS: METOPROLOL TARTRATE 25 MG TABLET (FP) PO SCH ×2 (09:54→21:14)
[2016-09-12] MEDS: BUDESONIDE/FORMETEROL FUMARATE 80/4.5 mcg INHALER IH SCH ×2 (09:54→21:14)
[2016-09-12] MEDS: PRENATAL VITAMINS W/ FOLIC ACID TABLET (FP) PO SCH (09:54)
[2016-09-12] MEDS: LISINOPRIL 20 MG TABLET (FP) PO SCH (09:55)
[2016-09-12] MEDS ORDERED: INSULIN (NOVOLOG) ASPART 100 UNITS/ML 10ML VIAL ONE ×2 (17:04→21:12)
[2016-09-12] MEDS ORDERED: PT OWN MED DRAWER 7, Y5N ONE (20:15)
[2016-09-12] MEDS: INSULIN DETEMIR 100 UNITS/ML MDV SQ SCH (21:12)
[2016-09-12] MEDS: HYDROCORTISONE 1% TOPICAL LOTION 118 ML BOTTLE TP PRN (21:14)
[2016-09-12] MEDS: ATORVASTATIN CA 40 MG TABLET (FP) PO SCH (21:14)
[2016-09-12] MEDS: diphenhydrAMINE HCL 50 MG CAPSULE PO PRN (21:15)
[2016-09-12] MEDS: THIAMINE HCL 100 MG TABLET (FP) PO SCH (21:15)
[2016-09-12] MEDS: MONTELUKAST NA 10 MG TABLET PO SCH (21:15)
[2016-09-13] MEDS: VITAMINS A AND D TOPICAL OINTMENT 60 GM TUBE TP SCH ×4 (00:27→17:11)
[2016-09-13] MEDS ORDERED: PT OWN MED DRAWER 7, Y5N ONE ×2 (06:36→08:37)
[2016-09-13] MEDS: INSULIN (NOVOLOG) ASPART 100 UNITS/ML 10ML VIAL SQ SCH ×4 (07:53→21:12)
[2016-09-13] MEDS: BUDESONIDE/FORMETEROL FUMARATE 80/4.5 mcg INHALER IH SCH ×2 (09:57→21:15)
[2016-09-13] MEDS: PRENATAL VITAMINS W/ FOLIC ACID TABLET (FP) PO SCH (09:57)
[2016-09-13] MEDS: METOPROLOL TARTRATE 25 MG TABLET (FP) PO SCH ×2 (09:57→21:10)
[2016-09-13] MEDS: LISINOPRIL 20 MG TABLET (FP) PO SCH (09:57)
[2016-09-13] MEDS ORDERED: INSULIN (NOVOLOG) ASPART 100 UNITS/ML 10ML VIAL ONE ×2 (17:06→22:29)
[2016-09-13] MEDS: ACETAMINOPHEN 325 MG TABLET (FP) PO PRN (17:12)
[2016-09-13] MEDS: THIAMINE HCL 100 MG TABLET (FP) PO SCH (21:10)
[2016-09-13] MEDS: diphenhydrAMINE HCL 50 MG CAPSULE PO PRN (21:10)
[2016-09-13] MEDS: MONTELUKAST NA 10 MG TABLET PO SCH (21:10)
[2016-09-13] MEDS: ATORVASTATIN CA 40 MG TABLET (FP) PO SCH (21:10)
[2016-09-13] MEDS: APIXABAN 5 MG TABLET PO SCH (21:11)
[2016-09-13] MEDS: INSULIN DETEMIR 100 UNITS/ML MDV SQ SCH (21:15)
[2016-09-14] MEDS: VITAMINS A AND D TOPICAL OINTMENT 60 GM TUBE TP SCH ×4 (00:15→17:12)
[2016-09-14] MEDS: INSULIN (NOVOLOG) ASPART 100 UNITS/ML 10ML VIAL SQ SCH ×4 (07:59→21:17)
[2016-09-14] MEDS ORDERED: PT OWN MED DRAWER 7, Y5N ONE ×2 (08:32→12:04)
[2016-09-14] MEDS: PRENATAL VITAMINS W/ FOLIC ACID TABLET (FP) PO SCH (09:55)
[2016-09-14] MEDS: APIXABAN 5 MG TABLET PO SCH ×2 (09:56→21:14)
[2016-09-14] MEDS: BUDESONIDE/FORMETEROL FUMARATE 80/4.5 mcg INHALER IH SCH ×2 (09:57→21:18)
[2016-09-14] MEDS: METOPROLOL TARTRATE 25 MG TABLET (FP) PO SCH (09:58)
[2016-09-14] MEDS: LISINOPRIL 20 MG TABLET (FP) PO SCH (09:58)
[2016-09-14] MEDS: HYDROCORTISONE 1% TOPICAL LOTION 118 ML BOTTLE TP PRN (12:03)
--- NOTE | 2016-09-14 14:35 | PN ---
[facility] Progress Note Note: We'll adjust BP meds because of low BP Vital Signs - 24 hr 09/14/16 09/14/16 09/14/16 00:30 03:30 07:28 Temperature 98.0 F Pulse Rate 75 Respiratory 18 18 18 Rate Blood Pressure 131/76 09/14/16 09:58 Temperature Pulse Rate 63 Respiratory Rate Blood Pressure 97/53 Monitor BP
[2016-09-14] MEDS: LISINOPRIL 10 MG TABLET (FP) PO SCH (15:21)
[2016-09-14] MEDS ORDERED: INSULIN (NOVOLOG) ASPART 100 UNITS/ML 10ML VIAL ONE ×2 (16:46→23:27)
[2016-09-14] MEDS: MONTELUKAST NA 10 MG TABLET PO SCH (21:14)
[2016-09-14] MEDS: THIAMINE HCL 100 MG TABLET (FP) PO SCH (21:14)
[2016-09-14] MEDS: diphenhydrAMINE HCL 50 MG CAPSULE PO PRN (21:14)
[2016-09-14] MEDS: INSULIN DETEMIR 100 UNITS/ML MDV SQ SCH (21:16)
[2016-09-14] MEDS: ATORVASTATIN CA 40 MG TABLET (FP) PO SCH (21:17)
[2016-09-14] MEDS: ACETAMINOPHEN 325 MG TABLET (FP) PO PRN (22:39)
[2016-09-15] MEDS: VITAMINS A AND D TOPICAL OINTMENT 60 GM TUBE TP SCH ×4 (00:18→17:08)
[2016-09-15] MEDS: COLLOIDAL OATMEAL 1 BAR EACH TP PRN (07:23)
[2016-09-15] MEDS: MENTHOL/PHENOL 1 EACH UD MM PRN (07:23)
[2016-09-15] MEDS: INSULIN (NOVOLOG) ASPART 100 UNITS/ML 10ML VIAL SQ SCH ×4 (08:28→21:14)
[2016-09-15] MEDS ORDERED: PT OWN MED DRAWER 7, Y5N ONE (08:55)
[2016-09-15] MEDS: LISINOPRIL 10 MG TABLET (FP) PO SCH (09:56)
[2016-09-15] MEDS: BUDESONIDE/FORMETEROL FUMARATE 80/4.5 mcg INHALER IH SCH ×2 (09:56→21:15)
[2016-09-15] MEDS: PRENATAL VITAMINS W/ FOLIC ACID TABLET (FP) PO SCH (09:56)
[2016-09-15] MEDS: APIXABAN 5 MG TABLET PO SCH (09:56)
[2016-09-15] MEDS: METOPROLOL TARTRATE 25 MG TABLET (FP) PO SCH (09:56)
[2016-09-15] MEDS ORDERED: INSULIN (NOVOLOG) ASPART 100 UNITS/ML 10ML VIAL ONE ×3 (11:59→23:34)
--- NOTE | 2016-09-15 14:25 | PN ---
[facility] Progress Note Note: stool hemoccult still + d/c eliquis start aspirin 81mg
[2016-09-15] MEDS: INSULIN DETEMIR 100 UNITS/ML MDV SQ SCH (21:13)
[2016-09-15] MEDS: MONTELUKAST NA 10 MG TABLET PO SCH (21:15)
[2016-09-15] MEDS: ATORVASTATIN CA 40 MG TABLET (FP) PO SCH (21:15)
[2016-09-15] MEDS: THIAMINE HCL 100 MG TABLET (FP) PO SCH (21:15)
[2016-09-15] MEDS: diphenhydrAMINE HCL 50 MG CAPSULE PO PRN (21:16)
[2016-09-16] MEDS: VITAMINS A AND D TOPICAL OINTMENT 60 GM TUBE TP SCH ×4 (00:20→17:08)
[2016-09-16] MEDS: INSULIN (NOVOLOG) ASPART 100 UNITS/ML 10ML VIAL SQ SCH ×4 (07:50→21:27)
[2016-09-16] MEDS: ASPIRIN COATED 81 MG TABLET.EC PO SCH (09:55)
[2016-09-16] MEDS: LISINOPRIL 10 MG TABLET (FP) PO SCH (09:55)
[2016-09-16] MEDS: METOPROLOL TARTRATE 25 MG TABLET (FP) PO SCH (09:55)
[2016-09-16] MEDS: BUDESONIDE/FORMETEROL FUMARATE 80/4.5 mcg INHALER IH SCH ×2 (09:55→21:28)
[2016-09-16] MEDS: PRENATAL VITAMINS W/ FOLIC ACID TABLET (FP) PO SCH (09:55)
[2016-09-16] MEDS ORDERED: INSULIN (NOVOLOG) ASPART 100 UNITS/ML 10ML VIAL ONE ×2 (17:05→23:24)
[2016-09-16] MEDS: MONTELUKAST NA 10 MG TABLET PO SCH (21:23)
[2016-09-16] MEDS: THIAMINE HCL 100 MG TABLET (FP) PO SCH (21:23)
[2016-09-16] MEDS: ATORVASTATIN CA 40 MG TABLET (FP) PO SCH (21:23)
[2016-09-16] MEDS: diphenhydrAMINE HCL 50 MG CAPSULE PO PRN (21:24)
[2016-09-16] MEDS: INSULIN DETEMIR 100 UNITS/ML MDV SQ SCH (21:26)
[2016-09-17] MEDS: VITAMINS A AND D TOPICAL OINTMENT 60 GM TUBE TP SCH ×4 (00:48→17:15)
[2016-09-17] MEDS: INSULIN (NOVOLOG) ASPART 100 UNITS/ML 10ML VIAL SQ SCH ×4 (07:49→21:12)
[2016-09-17] MEDS: LISINOPRIL 10 MG TABLET (FP) PO SCH (10:05)
[2016-09-17] MEDS: METOPROLOL TARTRATE 25 MG TABLET (FP) PO SCH (10:05)
[2016-09-17] MEDS: BUDESONIDE/FORMETEROL FUMARATE 80/4.5 mcg INHALER IH SCH ×2 (10:06→21:08)
[2016-09-17] MEDS: PRENATAL VITAMINS W/ FOLIC ACID TABLET (FP) PO SCH (10:06)
[2016-09-17] MEDS: ASPIRIN COATED 81 MG TABLET.EC PO SCH (10:06)
[2016-09-17] MEDS ORDERED: INSULIN (NOVOLOG) ASPART 100 UNITS/ML 10ML VIAL ONE ×2 (11:57→17:16)
[2016-09-17] MEDS ORDERED: PT OWN MED DRAWER 7, Y5N ONE ×4 (12:09→21:15)
[2016-09-17] MEDS: MAG HYDROX/AL HYDROX/SIMETH 30 ML UNIT-DOSE CUP PO PRN (19:42)
[2016-09-17] MEDS: ATORVASTATIN CA 40 MG TABLET (FP) PO SCH (21:09)
[2016-09-17] MEDS: MONTELUKAST NA 10 MG TABLET PO SCH (21:09)
[2016-09-17] MEDS: THIAMINE HCL 100 MG TABLET (FP) PO SCH (21:09)
[2016-09-17] MEDS: diphenhydrAMINE HCL 50 MG CAPSULE PO PRN (21:10)
[2016-09-17] MEDS: INSULIN DETEMIR 100 UNITS/ML MDV SQ SCH (21:13)
[2016-09-17] MEDS: COLLOIDAL OATMEAL 1 BAR EACH TP PRN (21:16)
[2016-09-17] MEDS ORDERED: HYDROCORTISONE 0.5% TOPICAL CREAM 30 GM TUBE TP PRN (22:12)
[2016-09-17] MEDS: HYDROCORTISONE 1% TOPICAL CREAM 30 GM TUBE TP PRN (23:32)
[2016-09-18] MEDS: VITAMINS A AND D TOPICAL OINTMENT 60 GM TUBE TP SCH ×4 (00:10→18:30)
[2016-09-18] MEDS: INSULIN (NOVOLOG) ASPART 100 UNITS/ML 10ML VIAL SQ SCH ×4 (07:54→21:16)
[2016-09-18] MEDS ORDERED: INSULIN (NOVOLOG) ASPART 100 UNITS/ML 10ML VIAL ONE ×3 (07:59→17:06)
[2016-09-18] MEDS: PRENATAL VITAMINS W/ FOLIC ACID TABLET (FP) PO SCH (09:54)
[2016-09-18] MEDS: ASPIRIN COATED 81 MG TABLET.EC PO SCH (09:54)
[2016-09-18] MEDS: METOPROLOL TARTRATE 25 MG TABLET (FP) PO SCH (09:54)
[2016-09-18] MEDS: BUDESONIDE/FORMETEROL FUMARATE 80/4.5 mcg INHALER IH SCH ×2 (09:54→21:17)
[2016-09-18] MEDS: LISINOPRIL 10 MG TABLET (FP) PO SCH (09:54)
[2016-09-18] MEDS: diphenhydrAMINE HCL 50 MG CAPSULE PO PRN (21:12)
[2016-09-18] MEDS: MONTELUKAST NA 10 MG TABLET PO SCH (21:12)
[2016-09-18] MEDS: THIAMINE HCL 100 MG TABLET (FP) PO SCH (21:12)
[2016-09-18] MEDS: ATORVASTATIN CA 40 MG TABLET (FP) PO SCH (21:12)
[2016-09-18] MEDS: INSULIN DETEMIR 100 UNITS/ML MDV SQ SCH (21:14)
[2016-09-18] MEDS: HYDROCORTISONE 1% TOPICAL CREAM 30 GM TUBE TP PRN (21:18)
[2016-09-19] MEDS: VITAMINS A AND D TOPICAL OINTMENT 60 GM TUBE TP SCH ×4 (00:45→17:16)
[2016-09-19] MEDS: INSULIN (NOVOLOG) ASPART 100 UNITS/ML 10ML VIAL SQ SCH ×4 (07:59→21:19)
[2016-09-19] MEDS: MENTHOL/PHENOL 1 EACH UD MM PRN (08:01)
[2016-09-19] MEDS ORDERED: PT OWN MED DRAWER 7, Y5N ONE ×2 (08:09→08:27)
[2016-09-19] MEDS: BUDESONIDE/FORMETEROL FUMARATE 80/4.5 mcg INHALER IH SCH ×2 (09:35→21:21)
[2016-09-19] MEDS: ASPIRIN COATED 81 MG TABLET.EC PO SCH (09:36)
[2016-09-19] MEDS: PRENATAL VITAMINS W/ FOLIC ACID TABLET (FP) PO SCH (09:36)
[2016-09-19] MEDS: LISINOPRIL 10 MG TABLET (FP) PO SCH (09:36)
[2016-09-19] MEDS: METOPROLOL TARTRATE 25 MG TABLET (FP) PO SCH (09:36)
[2016-09-19] MEDS ORDERED: INSULIN (NOVOLOG) ASPART 100 UNITS/ML 10ML VIAL ONE ×3 (11:25→23:48)
[2016-09-19] MEDS: MONTELUKAST NA 10 MG TABLET PO SCH (21:16)
[2016-09-19] MEDS: diphenhydrAMINE HCL 50 MG CAPSULE PO PRN (21:16)
[2016-09-19] MEDS: ATORVASTATIN CA 40 MG TABLET (FP) PO SCH (21:16)
[2016-09-19] MEDS: THIAMINE HCL 100 MG TABLET (FP) PO SCH (21:16)
[2016-09-19] MEDS: INSULIN DETEMIR 100 UNITS/ML MDV SQ SCH (21:18)
[2016-09-19] MEDS ORDERED: INSULIN DETEMIR 100 UNITS/ML MDV SQ ONE (23:48)
[2016-09-20] MEDS: VITAMINS A AND D TOPICAL OINTMENT 60 GM TUBE TP SCH ×4 (00:44→18:40)
[2016-09-20] MEDS: INSULIN (NOVOLOG) ASPART 100 UNITS/ML 10ML VIAL SQ SCH ×4 (07:47→21:14)
[2016-09-20] MEDS: ASPIRIN COATED 81 MG TABLET.EC PO SCH (09:57)
[2016-09-20] MEDS: LISINOPRIL 10 MG TABLET (FP) PO SCH (09:57)
[2016-09-20] MEDS: METOPROLOL TARTRATE 25 MG TABLET (FP) PO SCH (09:57)
[2016-09-20] MEDS: BUDESONIDE/FORMETEROL FUMARATE 80/4.5 mcg INHALER IH SCH ×2 (09:57→21:18)
[2016-09-20] MEDS: PRENATAL VITAMINS W/ FOLIC ACID TABLET (FP) PO SCH (09:57)
[2016-09-20] MEDS ORDERED: INSULIN (NOVOLOG) ASPART 100 UNITS/ML 10ML VIAL ONE ×3 (12:01→22:10)
[2016-09-20] MEDS: ATORVASTATIN CA 40 MG TABLET (FP) PO SCH (21:13)
[2016-09-20] MEDS: THIAMINE HCL 100 MG TABLET (FP) PO SCH (21:13)
[2016-09-20] MEDS: MONTELUKAST NA 10 MG TABLET PO SCH (21:13)
[2016-09-20] MEDS: INSULIN DETEMIR 100 UNITS/ML MDV SQ SCH (21:14)
[2016-09-20] MEDS ORDERED: PT OWN MED DRAWER 7, Y5N ONE ×2 (21:16→22:09)
[2016-09-20] MEDS: diphenhydrAMINE HCL 50 MG CAPSULE PO PRN (21:17)
[2016-09-21] MEDS: VITAMINS A AND D TOPICAL OINTMENT 60 GM TUBE TP SCH ×4 (00:47→18:02)
[2016-09-21] MEDS ORDERED: PT OWN MED DRAWER 7, Y5N ONE ×3 (05:21→19:59)
[2016-09-21] MEDS: INSULIN (NOVOLOG) ASPART 100 UNITS/ML 10ML VIAL SQ SCH ×4 (07:36→21:07)
[2016-09-21] MEDS: PRENATAL VITAMINS W/ FOLIC ACID TABLET (FP) PO SCH (10:00)
[2016-09-21] MEDS: ASPIRIN COATED 81 MG TABLET.EC PO SCH (10:00)
[2016-09-21] MEDS: METOPROLOL TARTRATE 25 MG TABLET (FP) PO SCH (10:00)
[2016-09-21] MEDS: LISINOPRIL 10 MG TABLET (FP) PO SCH (10:01)
[2016-09-21] MEDS: BUDESONIDE/FORMETEROL FUMARATE 80/4.5 mcg INHALER IH SCH ×2 (10:02→21:10)
[2016-09-21] MEDS ORDERED: INSULIN (NOVOLOG) ASPART 100 UNITS/ML 10ML VIAL ONE ×3 (11:41→21:08)
[2016-09-21] MEDS: MAG HYDROX/AL HYDROX/SIMETH 30 ML UNIT-DOSE CUP PO PRN (18:24)
[2016-09-21] MEDS: INSULIN DETEMIR 100 UNITS/ML MDV SQ SCH (21:08)
[2016-09-21] MEDS: ATORVASTATIN CA 40 MG TABLET (FP) PO SCH (21:10)
[2016-09-21] MEDS: MONTELUKAST NA 10 MG TABLET PO SCH (21:10)
[2016-09-21] MEDS: diphenhydrAMINE HCL 50 MG CAPSULE PO PRN (21:10)
[2016-09-21] MEDS: THIAMINE HCL 100 MG TABLET (FP) PO SCH (21:10)
[2016-09-21] MEDS: HYDROCORTISONE 1% TOPICAL CREAM 30 GM TUBE TP PRN (21:12)
[2016-09-22] MEDS: VITAMINS A AND D TOPICAL OINTMENT 60 GM TUBE TP SCH ×4 (00:20→17:18)
[2016-09-22] MEDS ORDERED: PT OWN MED DRAWER 7, Y5N ONE ×2 (03:14→12:16)
[2016-09-22] MEDS: INSULIN (NOVOLOG) ASPART 100 UNITS/ML 10ML VIAL SQ SCH ×4 (07:58→21:20)
[2016-09-22] MEDS: COLLOIDAL OATMEAL 1 BAR EACH TP PRN (07:59)
[2016-09-22] MEDS: ASPIRIN COATED 81 MG TABLET.EC PO SCH (10:03)
[2016-09-22] MEDS: METOPROLOL TARTRATE 25 MG TABLET (FP) PO SCH (10:03)
[2016-09-22] MEDS: LISINOPRIL 10 MG TABLET (FP) PO SCH (10:04)
[2016-09-22] MEDS: PRENATAL VITAMINS W/ FOLIC ACID TABLET (FP) PO SCH (10:04)
[2016-09-22] MEDS: BUDESONIDE/FORMETEROL FUMARATE 80/4.5 mcg INHALER IH SCH ×2 (10:04→21:19)
[2016-09-22] MEDS ORDERED: INSULIN (NOVOLOG) ASPART 100 UNITS/ML 10ML VIAL ONE ×3 (12:13→23:41)
[2016-09-22] MEDS: MAG HYDROX/AL HYDROX/SIMETH 30 ML UNIT-DOSE CUP PO PRN (13:36)
--- NOTE | 2016-09-22 14:45 | PN ---
[facility] Progress Note Note: Stool hemocult is negative Resume Elilizzieis
[2016-09-22] MEDS: MONTELUKAST NA 10 MG TABLET PO SCH (21:18)
[2016-09-22] MEDS: THIAMINE HCL 100 MG TABLET (FP) PO SCH (21:18)
[2016-09-22] MEDS: ATORVASTATIN CA 40 MG TABLET (FP) PO SCH (21:18)
[2016-09-22] MEDS: APIXABAN 5 MG TABLET PO SCH (21:19)
[2016-09-22] MEDS: diphenhydrAMINE HCL 50 MG CAPSULE PO PRN (21:19)
[2016-09-22] MEDS: INSULIN DETEMIR 100 UNITS/ML MDV SQ SCH (21:21)
[2016-09-23] MEDS: VITAMINS A AND D TOPICAL OINTMENT 60 GM TUBE TP SCH ×4 (00:12→18:20)
[2016-09-23] MEDS: INSULIN (NOVOLOG) ASPART 100 UNITS/ML 10ML VIAL SQ SCH ×4 (07:52→21:25)
[2016-09-23] MEDS: METOPROLOL TARTRATE 25 MG TABLET (FP) PO SCH (10:24)
[2016-09-23] MEDS: ASPIRIN COATED 81 MG TABLET.EC PO SCH ×2 (10:24→10:27)
[2016-09-23] MEDS: PRENATAL VITAMINS W/ FOLIC ACID TABLET (FP) PO SCH (10:24)
[2016-09-23] MEDS: BUDESONIDE/FORMETEROL FUMARATE 80/4.5 mcg INHALER IH SCH ×2 (10:24→21:22)
[2016-09-23] MEDS: APIXABAN 5 MG TABLET PO SCH ×2 (10:24→21:21)
[2016-09-23] MEDS: LISINOPRIL 10 MG TABLET (FP) PO SCH (10:24)
[2016-09-23] MEDS ORDERED: INSULIN (NOVOLOG) ASPART 100 UNITS/ML 10ML VIAL ONE ×2 (11:51→16:53)
[2016-09-23] MEDS: MAG HYDROX/AL HYDROX/SIMETH 30 ML UNIT-DOSE CUP PO PRN (11:51)
[2016-09-23] MEDS ORDERED: PT OWN MED DRAWER 7, Y5N ONE (11:52)
[2016-09-23] MEDS: ATORVASTATIN CA 40 MG TABLET (FP) PO SCH (21:21)
[2016-09-23] MEDS: MONTELUKAST NA 10 MG TABLET PO SCH (21:21)
[2016-09-23] MEDS: THIAMINE HCL 100 MG TABLET (FP) PO SCH (21:21)
[2016-09-23] MEDS: diphenhydrAMINE HCL 50 MG CAPSULE PO PRN (21:22)
[2016-09-23] MEDS: INSULIN DETEMIR 100 UNITS/ML MDV SQ SCH (21:24)
[2016-09-24] MEDS: VITAMINS A AND D TOPICAL OINTMENT 60 GM TUBE TP SCH ×4 (00:10→18:45)
[2016-09-24] MEDS: INSULIN (NOVOLOG) ASPART 100 UNITS/ML 10ML VIAL SQ SCH ×4 (07:45→21:22)
[2016-09-24] MEDS ORDERED: PT OWN MED DRAWER 7, Y5N ONE (08:58)
[2016-09-24] MEDS: BUDESONIDE/FORMETEROL FUMARATE 80/4.5 mcg INHALER IH SCH ×2 (10:17→21:24)
[2016-09-24] MEDS: PRENATAL VITAMINS W/ FOLIC ACID TABLET (FP) PO SCH (10:17)
[2016-09-24] MEDS: METOPROLOL TARTRATE 25 MG TABLET (FP) PO SCH (10:18)
[2016-09-24] MEDS: LISINOPRIL 10 MG TABLET (FP) PO SCH (10:18)
[2016-09-24] MEDS: APIXABAN 5 MG TABLET PO SCH ×2 (10:18→21:20)
[2016-09-24] MEDS ORDERED: INSULIN (NOVOLOG) ASPART 100 UNITS/ML 10ML VIAL ONE ×2 (12:01→22:33)
[2016-09-24] MEDS: ATORVASTATIN CA 40 MG TABLET (FP) PO SCH (21:20)
[2016-09-24] MEDS: THIAMINE HCL 100 MG TABLET (FP) PO SCH (21:20)
[2016-09-24] MEDS: MONTELUKAST NA 10 MG TABLET PO SCH (21:20)
[2016-09-24] MEDS: diphenhydrAMINE HCL 50 MG CAPSULE PO PRN (21:21)
[2016-09-24] MEDS: INSULIN DETEMIR 100 UNITS/ML MDV SQ SCH (21:22)
[2016-09-24] MEDS: MAG HYDROX/AL HYDROX/SIMETH 30 ML UNIT-DOSE CUP PO PRN (21:25)
[2016-09-25] MEDS: VITAMINS A AND D TOPICAL OINTMENT 60 GM TUBE TP SCH ×5 (00:36→23:41)
[2016-09-25] MEDS: INSULIN (NOVOLOG) ASPART 100 UNITS/ML 10ML VIAL SQ SCH ×4 (07:52→21:09)
[2016-09-25] MEDS: APIXABAN 5 MG TABLET PO SCH ×2 (10:00→21:11)
[2016-09-25] MEDS: METOPROLOL TARTRATE 25 MG TABLET (FP) PO SCH (10:00)
[2016-09-25] MEDS: PRENATAL VITAMINS W/ FOLIC ACID TABLET (FP) PO SCH (10:00)
[2016-09-25] MEDS: BUDESONIDE/FORMETEROL FUMARATE 80/4.5 mcg INHALER IH SCH ×2 (10:01→21:12)
[2016-09-25] MEDS: LISINOPRIL 10 MG TABLET (FP) PO SCH (10:02)
[2016-09-25] MEDS ORDERED: INSULIN (NOVOLOG) ASPART 100 UNITS/ML 10ML VIAL ONE ×3 (12:03→21:09)
[2016-09-25] MEDS ORDERED: PT OWN MED DRAWER 7, Y5N ONE (20:17)
[2016-09-25] MEDS: INSULIN DETEMIR 100 UNITS/ML MDV SQ SCH (21:10)
[2016-09-25] MEDS: ATORVASTATIN CA 40 MG TABLET (FP) PO SCH (21:11)
[2016-09-25] MEDS: MONTELUKAST NA 10 MG TABLET PO SCH (21:11)
[2016-09-25] MEDS: THIAMINE HCL 100 MG TABLET (FP) PO SCH (21:12)
[2016-09-25] MEDS: diphenhydrAMINE HCL 50 MG CAPSULE PO PRN (21:12)
[2016-09-26] MEDS: VITAMINS A AND D TOPICAL OINTMENT 60 GM TUBE TP SCH ×3 (07:07→17:09)
[2016-09-26] MEDS: INSULIN (NOVOLOG) ASPART 100 UNITS/ML 10ML VIAL SQ SCH ×4 (07:56→22:00)
[2016-09-26] MEDS: PRENATAL VITAMINS W/ FOLIC ACID TABLET (FP) PO SCH (09:30)
[2016-09-26] MEDS: METOPROLOL TARTRATE 25 MG TABLET (FP) PO SCH (09:30)
[2016-09-26] MEDS: APIXABAN 5 MG TABLET PO SCH ×2 (09:30→21:06)
[2016-09-26] MEDS: LISINOPRIL 10 MG TABLET (FP) PO SCH (09:31)
[2016-09-26] MEDS: MAG HYDROX/AL HYDROX/SIMETH 30 ML UNIT-DOSE CUP PO PRN (09:31)
[2016-09-26] MEDS: BUDESONIDE/FORMETEROL FUMARATE 80/4.5 mcg INHALER IH SCH ×2 (09:31→22:00)
[2016-09-26] MEDS ORDERED: INSULIN (NOVOLOG) ASPART 100 UNITS/ML 10ML VIAL ONE ×3 (11:36→21:05)
[2016-09-26] MEDS ORDERED: ALBUTEROL SO4 2.5/IPRATROPIUM 0.5 INH SOL 3 ML VIAL.NEB. NEB PRN (12:04)
[2016-09-26] MEDS: diphenhydrAMINE HCL 50 MG CAPSULE PO PRN (21:06)
[2016-09-26] MEDS: THIAMINE HCL 100 MG TABLET (FP) PO SCH (21:06)
[2016-09-26] MEDS: ATORVASTATIN CA 40 MG TABLET (FP) PO SCH (21:06)
[2016-09-26] MEDS: MONTELUKAST NA 10 MG TABLET PO SCH (21:06)
[2016-09-26] MEDS: INSULIN DETEMIR 100 UNITS/ML MDV SQ SCH (22:00)
[2016-09-27] MEDS: VITAMINS A AND D TOPICAL OINTMENT 60 GM TUBE TP SCH ×4 (00:19→18:29)
[2016-09-27] MEDS: INSULIN (NOVOLOG) ASPART 100 UNITS/ML 10ML VIAL SQ SCH ×4 (07:47→21:06)
[2016-09-27] MEDS ORDERED: PT OWN MED DRAWER 7, Y5N ONE ×2 (08:24→20:08)
[2016-09-27] MEDS: BUDESONIDE/FORMETEROL FUMARATE 80/4.5 mcg INHALER IH SCH ×2 (10:28→21:08)
[2016-09-27] MEDS: METOPROLOL TARTRATE 25 MG TABLET (FP) PO SCH (10:29)
[2016-09-27] MEDS: PRENATAL VITAMINS W/ FOLIC ACID TABLET (FP) PO SCH (10:29)
[2016-09-27] MEDS: APIXABAN 5 MG TABLET PO SCH ×2 (10:29→21:08)
[2016-09-27] MEDS: LISINOPRIL 10 MG TABLET (FP) PO SCH (10:29)
[2016-09-27] MEDS ORDERED: INSULIN (NOVOLOG) ASPART 100 UNITS/ML 10ML VIAL ONE ×3 (11:45→21:06)
[2016-09-27] MEDS ORDERED: NAPHAZOLINE/PHENIRAMINE OPHTHALMIC 15 ML BOTTLE OU ONE (16:30)
[2016-09-27] MEDS: NAPHAZOLINE/PHENIRAMINE OPHTHALMIC 15 ML BOTTLE OU SCH ×2 (17:11→21:57)
[2016-09-27] MEDS: INSULIN DETEMIR 100 UNITS/ML MDV SQ SCH (21:07)
[2016-09-27] MEDS: MONTELUKAST NA 10 MG TABLET PO SCH (21:08)
[2016-09-27] MEDS: ATORVASTATIN CA 40 MG TABLET (FP) PO SCH (21:08)
[2016-09-27] MEDS: diphenhydrAMINE HCL 50 MG CAPSULE PO PRN (21:09)
[2016-09-27] MEDS: THIAMINE HCL 100 MG TABLET (FP) PO SCH (21:09)
[2016-09-28] MEDS: VITAMINS A AND D TOPICAL OINTMENT 60 GM TUBE TP SCH ×5 (00:39→23:07)
[2016-09-28] MEDS ORDERED: PT OWN MED DRAWER 7, Y5N ONE ×4 (07:26→13:38)
[2016-09-28] MEDS: INSULIN (NOVOLOG) ASPART 100 UNITS/ML 10ML VIAL SQ SCH ×4 (07:52→21:00)
[2016-09-28] MEDS: PRENATAL VITAMINS W/ FOLIC ACID TABLET (FP) PO SCH (09:57)
[2016-09-28] MEDS: APIXABAN 5 MG TABLET PO SCH ×2 (09:57→21:01)
[2016-09-28] MEDS: METOPROLOL TARTRATE 25 MG TABLET (FP) PO SCH (09:57)
[2016-09-28] MEDS: LISINOPRIL 10 MG TABLET (FP) PO SCH (09:59)
[2016-09-28] MEDS: BUDESONIDE/FORMETEROL FUMARATE 80/4.5 mcg INHALER IH SCH ×2 (09:59→21:02)
[2016-09-28] MEDS: NAPHAZOLINE/PHENIRAMINE OPHTHALMIC 15 ML BOTTLE OU SCH ×4 (10:57→21:01)
[2016-09-28] MEDS ORDERED: INSULIN (NOVOLOG) ASPART 100 UNITS/ML 10ML VIAL ONE ×3 (11:50→20:57)
[2016-09-28] MEDS: INSULIN DETEMIR 100 UNITS/ML MDV SQ SCH (21:00)
[2016-09-28] MEDS: MONTELUKAST NA 10 MG TABLET PO SCH (21:01)
[2016-09-28] MEDS: THIAMINE HCL 100 MG TABLET (FP) PO SCH (21:01)
[2016-09-28] MEDS: ATORVASTATIN CA 40 MG TABLET (FP) PO SCH (21:01)
[2016-09-28] MEDS: diphenhydrAMINE HCL 50 MG CAPSULE PO PRN (21:04)
[2016-09-29] MEDS: VITAMINS A AND D TOPICAL OINTMENT 60 GM TUBE TP SCH ×3 (06:30→17:57)
[2016-09-29] MEDS: INSULIN (NOVOLOG) ASPART 100 UNITS/ML 10ML VIAL SQ SCH ×4 (07:49→21:34)
[2016-09-29] MEDS ORDERED: PT OWN MED DRAWER 7, Y5N ONE ×4 (09:01→23:25)
[2016-09-29] MEDS: NAPHAZOLINE/PHENIRAMINE OPHTHALMIC 15 ML BOTTLE OU SCH ×4 (10:57→21:27)
[2016-09-29] MEDS: BUDESONIDE/FORMETEROL FUMARATE 80/4.5 mcg INHALER IH SCH ×2 (10:58→21:27)
[2016-09-29] MEDS: LISINOPRIL 10 MG TABLET (FP) PO SCH (10:58)
[2016-09-29] MEDS: APIXABAN 5 MG TABLET PO SCH ×2 (10:59→21:26)
[2016-09-29] MEDS: METOPROLOL TARTRATE 25 MG TABLET (FP) PO SCH (10:59)
[2016-09-29] MEDS: PRENATAL VITAMINS W/ FOLIC ACID TABLET (FP) PO SCH (10:59)
[2016-09-29] MEDS ORDERED: INSULIN (NOVOLOG) ASPART 100 UNITS/ML 10ML VIAL ONE ×3 (11:46→21:32)
[2016-09-29] MEDS: THIAMINE HCL 100 MG TABLET (FP) PO SCH (21:26)
[2016-09-29] MEDS: MONTELUKAST NA 10 MG TABLET PO SCH (21:26)
[2016-09-29] MEDS: ATORVASTATIN CA 40 MG TABLET (FP) PO SCH (21:26)
[2016-09-29] MEDS: diphenhydrAMINE HCL 50 MG CAPSULE PO PRN (21:29)
[2016-09-29] MEDS: INSULIN DETEMIR 100 UNITS/ML MDV SQ SCH (21:34)
[2016-09-30] MEDS: VITAMINS A AND D TOPICAL OINTMENT 60 GM TUBE TP SCH ×4 (00:16→18:18)
[2016-09-30] MEDS: INSULIN (NOVOLOG) ASPART 100 UNITS/ML 10ML VIAL SQ SCH ×4 (07:51→21:12)
[2016-09-30] MEDS ORDERED: PT OWN MED DRAWER 7, Y5N ONE ×3 (08:48→22:06)
[2016-09-30] MEDS: LISINOPRIL 10 MG TABLET (FP) PO SCH (10:06)
[2016-09-30] MEDS: BUDESONIDE/FORMETEROL FUMARATE 80/4.5 mcg INHALER IH SCH ×2 (10:06→22:22)
[2016-09-30] MEDS: PRENATAL VITAMINS W/ FOLIC ACID TABLET (FP) PO SCH (10:06)
[2016-09-30] MEDS: NAPHAZOLINE/PHENIRAMINE OPHTHALMIC 15 ML BOTTLE OU SCH ×4 (10:07→22:22)
[2016-09-30] MEDS: METOPROLOL TARTRATE 25 MG TABLET (FP) PO SCH (10:07)
[2016-09-30] MEDS: APIXABAN 5 MG TABLET PO SCH ×2 (10:07→21:06)
[2016-09-30] MEDS ORDERED: INSULIN (NOVOLOG) ASPART 100 UNITS/ML 10ML VIAL ONE ×3 (11:57→21:11)
[2016-09-30] MEDS: ATORVASTATIN CA 40 MG TABLET (FP) PO SCH (21:06)
[2016-09-30] MEDS: MONTELUKAST NA 10 MG TABLET PO SCH (21:06)
[2016-09-30] MEDS: THIAMINE HCL 100 MG TABLET (FP) PO SCH (21:06)
[2016-09-30] MEDS: diphenhydrAMINE HCL 50 MG CAPSULE PO PRN (21:07)
[2016-09-30] MEDS: INSULIN DETEMIR 100 UNITS/ML MDV SQ SCH (21:12)
[2016-10-01] MEDS: VITAMINS A AND D TOPICAL OINTMENT 60 GM TUBE TP SCH ×4 (00:37→18:00)
[2016-10-01] MEDS: INSULIN (NOVOLOG) ASPART 100 UNITS/ML 10ML VIAL SQ SCH ×4 (07:44→21:18)
[2016-10-01] MEDS ORDERED: PT OWN MED DRAWER 7, Y5N ONE ×4 (08:07→19:23)
[2016-10-01] MEDS: METOPROLOL TARTRATE 25 MG TABLET (FP) PO SCH (09:50)
[2016-10-01] MEDS: APIXABAN 5 MG TABLET PO SCH ×2 (09:50→21:15)
[2016-10-01] MEDS: NAPHAZOLINE/PHENIRAMINE OPHTHALMIC 15 ML BOTTLE OU SCH ×4 (09:51→21:25)
[2016-10-01] MEDS: LISINOPRIL 10 MG TABLET (FP) PO SCH (09:51)
[2016-10-01] MEDS: BUDESONIDE/FORMETEROL FUMARATE 80/4.5 mcg INHALER IH SCH ×2 (09:51→21:15)
[2016-10-01] MEDS: PRENATAL VITAMINS W/ FOLIC ACID TABLET (FP) PO SCH (09:51)
[2016-10-01] MEDS ORDERED: INSULIN (NOVOLOG) ASPART 100 UNITS/ML 10ML VIAL ONE (11:33)
[2016-10-01] MEDS: COLLOIDAL OATMEAL 1 BAR EACH TP PRN (17:11)
[2016-10-01] MEDS: THIAMINE HCL 100 MG TABLET (FP) PO SCH (21:15)
[2016-10-01] MEDS: ATORVASTATIN CA 40 MG TABLET (FP) PO SCH (21:15)
[2016-10-01] MEDS: MONTELUKAST NA 10 MG TABLET PO SCH (21:15)
[2016-10-01] MEDS: INSULIN DETEMIR 100 UNITS/ML MDV SQ SCH (21:16)
[2016-10-01] MEDS: diphenhydrAMINE HCL 50 MG CAPSULE PO PRN (21:20)
[2016-10-02] MEDS: VITAMINS A AND D TOPICAL OINTMENT 60 GM TUBE TP SCH ×4 (00:05→17:01)
[2016-10-02] MEDS: INSULIN (NOVOLOG) ASPART 100 UNITS/ML 10ML VIAL SQ SCH ×4 (07:49→21:15)
[2016-10-02] MEDS ORDERED: INSULIN (NOVOLOG) ASPART 100 UNITS/ML 10ML VIAL ONE ×3 (07:55→22:48)
[2016-10-02] MEDS ORDERED: PT OWN MED DRAWER 7, Y5N ONE ×5 (08:35→22:16)
[2016-10-02] MEDS: BUDESONIDE/FORMETEROL FUMARATE 80/4.5 mcg INHALER IH SCH ×2 (10:00→21:18)
[2016-10-02] MEDS: PRENATAL VITAMINS W/ FOLIC ACID TABLET (FP) PO SCH (10:00)
[2016-10-02] MEDS: LISINOPRIL 10 MG TABLET (FP) PO SCH (10:00)
[2016-10-02] MEDS: METOPROLOL TARTRATE 25 MG TABLET (FP) PO SCH (10:00)
[2016-10-02] MEDS: APIXABAN 5 MG TABLET PO SCH ×2 (10:00→21:13)
[2016-10-02] MEDS: NAPHAZOLINE/PHENIRAMINE OPHTHALMIC 15 ML BOTTLE OU SCH ×5 (10:02→21:12)
[2016-10-02] MEDS: BENZOCAINE 20 % GEL 9 GM TUBE MM PRN ×2 (13:30→21:17)
[2016-10-02] MEDS: THIAMINE HCL 100 MG TABLET (FP) PO SCH (21:12)
[2016-10-02] MEDS: ATORVASTATIN CA 40 MG TABLET (FP) PO SCH (21:13)
[2016-10-02] MEDS: MONTELUKAST NA 10 MG TABLET PO SCH (21:13)
[2016-10-02] MEDS: INSULIN DETEMIR 100 UNITS/ML MDV SQ SCH (21:14)
[2016-10-02] MEDS: diphenhydrAMINE HCL 50 MG CAPSULE PO PRN (21:14)
[2016-10-02] MEDS ORDERED: INSULIN DETEMIR 100 UNITS/ML MDV SQ ONE ×2 (22:46→22:47)
[2016-10-03] MEDS: VITAMINS A AND D TOPICAL OINTMENT 60 GM TUBE TP SCH ×4 (00:44→18:30)
[2016-10-03] MEDS ORDERED: PT OWN MED DRAWER 7, Y5N ONE ×5 (05:58→22:49)
[2016-10-03] MEDS: INSULIN (NOVOLOG) ASPART 100 UNITS/ML 10ML VIAL SQ SCH ×4 (08:04→21:15)
[2016-10-03] MEDS ORDERED: INSULIN (NOVOLOG) ASPART 100 UNITS/ML 10ML VIAL ONE ×4 (08:07→22:43)
[2016-10-03] MEDS: NAPHAZOLINE/PHENIRAMINE OPHTHALMIC 15 ML BOTTLE OU SCH ×4 (10:07→21:17)
[2016-10-03] MEDS: BUDESONIDE/FORMETEROL FUMARATE 80/4.5 mcg INHALER IH SCH ×2 (10:07→21:16)
[2016-10-03] MEDS: LISINOPRIL 10 MG TABLET (FP) PO SCH (10:08)
[2016-10-03] MEDS: METOPROLOL TARTRATE 25 MG TABLET (FP) PO SCH (10:08)
[2016-10-03] MEDS: BENZOCAINE 20 % GEL 9 GM TUBE MM PRN ×2 (10:08→17:46)
[2016-10-03] MEDS: PRENATAL VITAMINS W/ FOLIC ACID TABLET (FP) PO SCH (10:08)
[2016-10-03] MEDS: APIXABAN 5 MG TABLET PO SCH ×2 (10:09→21:12)
[2016-10-03] MEDS ORDERED: ATORVASTATIN CA 20 MG TABLET (FP) ONE (19:14)
[2016-10-03] MEDS: THIAMINE HCL 100 MG TABLET (FP) PO SCH (21:12)
[2016-10-03] MEDS: diphenhydrAMINE HCL 50 MG CAPSULE PO PRN (21:13)
[2016-10-03] MEDS: INSULIN DETEMIR 100 UNITS/ML MDV SQ SCH (21:15)
[2016-10-03] MEDS: MONTELUKAST NA 10 MG TABLET PO SCH (21:16)
[2016-10-03] MEDS: ATORVASTATIN CA 40 MG TABLET (FP) PO SCH (21:18)
[2016-10-03] MEDS: ACETAMINOPHEN 325 MG TABLET (FP) PO PRN (21:19)
[2016-10-03] MEDS ORDERED: INSULIN DETEMIR 100 UNITS/ML MDV SQ ONE (22:44)
[2016-10-04] MEDS: VITAMINS A AND D TOPICAL OINTMENT 60 GM TUBE TP SCH ×4 (00:19→17:14)
[2016-10-04] MEDS: INSULIN (NOVOLOG) ASPART 100 UNITS/ML 10ML VIAL SQ SCH ×4 (07:49→21:17)
[2016-10-04] MEDS ORDERED: INSULIN (NOVOLOG) ASPART 100 UNITS/ML 10ML VIAL ONE ×4 (07:55→22:08)
[2016-10-04] MEDS ORDERED: PT OWN MED DRAWER 7, Y5N ONE ×2 (09:03→17:15)
[2016-10-04] MEDS: BENZOCAINE 20 % GEL 9 GM TUBE MM PRN ×2 (09:20→17:15)
[2016-10-04] MEDS: BUDESONIDE/FORMETEROL FUMARATE 80/4.5 mcg INHALER IH SCH ×2 (09:21→21:16)
[2016-10-04] MEDS: APIXABAN 5 MG TABLET PO SCH ×2 (09:22→21:17)
[2016-10-04] MEDS: PRENATAL VITAMINS W/ FOLIC ACID TABLET (FP) PO SCH (09:22)
[2016-10-04] MEDS: METOPROLOL TARTRATE 25 MG TABLET (FP) PO SCH (09:22)
[2016-10-04] MEDS: LISINOPRIL 10 MG TABLET (FP) PO SCH (09:22)
[2016-10-04] MEDS: NAPHAZOLINE/PHENIRAMINE OPHTHALMIC 15 ML BOTTLE OU SCH ×4 (09:22→21:15)
[2016-10-04] MEDS: MAG HYDROX/AL HYDROX/SIMETH 30 ML UNIT-DOSE CUP PO PRN (14:34)
--- NOTE | 2016-10-04 15:37 | PN ---
Psychiatric Progress Note Vital Signs: Vital Signs Period Temp Pulse Resp BP Sys/Kennedy Pulse Ox Last 24 Hr 98.5 F 76-89 18-20 127-147/68-73 Date of Session: 10/04/16 Chief Complaint:: Discharge visit HPI: Alcohol,Opioid dependence. ROS: Significant for COPD,BA. Current Medications: Active Medications Generic Name Dose Route Start Last Admin Trade Name Freq PRN Reason Stop Dose Admin Acetaminophen 650 mg 09/07/16 12:33 10/03/16 21:19 Tylenol - PO 650 mg Q4H PRN Administration FEVER OR PAIN Al Hydroxide/Mg Hydroxide 30 ml 09/07/16 12:33 10/04/16 14:34 Mylanta Oral Suspension - PO 30 ml Q6H PRN Administration DYSPEPSIA Albuterol Sulfate 2 puff 09/07/16 12:36 Ventolin Hfa Inhaler - IH Q4H PRN ASTHMA Albuterol/Ipratropium 1 amp 09/26/16 12:04 09/27/16 19:22 Duoneb - NEB 1 amp Q4H PRN Administration SHORTNESS OF BREATH Apixaban 5 mg 09/22/16 22:00 10/04/16 09:22 Eliquis - PO 5 mg BID PABLITO Administration Atorvastatin Calcium 40 mg 09/07/16 22:00 10/03/16 21:18 Lipitor - PO 40 mg HS PABLITO Administration Benzocaine 1 applic 10/01/16 22:30 10/04/16 09:20 Anbesol - MM 1 applic Q2H PRN Administration ORAL PAIN/MOUTH SORES Budesonide/Formoterol Fumarate 2 puff 09/07/16 22:00 10/04/16 09:21 Symbicort 80/4.5mcg - IH 2 puff BID PABLITO Administration Colloidal Oatmeal 1 applic 09/07/16 22:19 10/01/16 17:11 Aveeno Soap - TP 1 bar DAILY PRN Administration HYGEINE Diphenhydramine HCl 50 mg 09/07/16 12:33 10/03/16 21:13 Benadryl - PO 50 mg HSMR1 PRN Administration FOR ITCHING Eucalyptus/Menthol/Phenol/Sorbitol 1 each 09/07/16 12:33 09/19/16 08:01 Cepastat Lozenge - MM 1 each Q4H PRN Administration SORE THROAT Guaifenesin 10 ml 09/07/16 12:33 Robitussin Dm - PO Q6H PRN COUGH Hydrocortisone 1 applic 09/17/16 22:28 09/21/16 21:12 Hytone 1% Cream - TP 1 applic DAILY PRN Administration DRY SKIN Insulin Aspart 0 units 09/10/16 16:30 10/04/16 11:36 Novolog Vial SQ 6 units TID@1100,1630,2200 [facility] Administration Protocol Insulin Aspart 20 units 09/11/16 08:30 10/04/16 07:49 Novolog Vial SQ 20 units DAILY@0830 [facility] Administration Protocol Insulin Detemir 40 units 09/07/16 22:00 10/03/16 21:15 Levemir Vial SQ 40 units HS [facility] Administration Lisinopril 10 mg 09/14/16 14:54 10/04/16 09:22 Prinivil PO 10 mg DAILY [facility] Administration Loperamide HCl 4 mg 09/07/16 12:33 Imodium - PO Q6H PRN DIARRHEA Magnesium Hydroxide 30 ml 09/07/16 12:33 09/09/16 13:46 Milk Of Magnesia - PO 30 ml DAILY PRN Administration CONSTIPATION Metoprolol Tartrate 25 mg 09/15/16 10:00 10/04/16 09:22 Lopressor - PO 25 mg DAILY [facility] Administration Montelukast Sodium 10 mg 09/07/16 22:00 10/03/16 21:16 Singulair - PO 10 mg HS [facility] Administration Naphazoline HCl/Pheniramine Maleate 1 drop 09/27/16 18:00 10/04/16 14:33 Visine-A - OU Not Given QID [facility] Multivit/Folic Acid/Iron 1 tab 09/08/16 10:00 10/04/16 09:22 Vitamins (Sjr) - PO 1 tab DAILY [facility] Administration Pseudoephedrine/Triprolidine 1 combo 09/07/16 12:33 Actifed - PO TID PRN NASAL CONGESTION Thiamine HCl 100 mg 09/07/16 22:00 10/03/16 21:12 Vitamin B1 - PO 100 mg HS [facility] Administration Vitamin A/Vitamin D 1 applic 09/08/16 12:00 10/04/16 12:07 Vitamin A & D Top Oint - TP Not Given Q6HPO [facility] Current Side Effect: No Lab tests ordered: No Lab tests reviewed: Yes Provider note:: Patient will complete this program tomorrow 10/05/16.She has met her treatment goals and will continue [facility]Patient continues to find that current management help to reduce her craving,anxity,depression.Therapy provided focusing on relapse prevention including coping skills,support utlilzation to maintain recovery. Patient is stable for discharge tomorrow 10/05/16. Total face to face time:: 30 Mental Status Exam - Mental Status Exam Alert and Oriented to: Time, Place, Person Cognitive Function: Grossly Intact Patient Appearance: Well Groomed Mood: Euthymic Affect: Mood Congruent Patient Behavior: Cooperative Speech Pattern: Clear Voice Loudness: Normal Thought Process: Goal Oriented Thought Disorder: Not Present Hallucinations: Denies Suicidal Ideation: Denies Homicidal Ideation: Denies Insight/Judgement: Fair Sleep: Fair Psychiatric Treatment Plan - Problem List (3) Cocaine dependence Qualifiers: Substance use status: uncomplicated Qualified Code(s): F14.20 - Cocaine dependence, uncomplicated (4) Diabetes mellitus Qualifiers: Diabetes mellitus type: type 2 Diabetes mellitus complication status: without complication Comment: last BGM 163 (5) History of atrial fibrillation Comment: que gauthier
[2016-10-04] MEDS: THIAMINE HCL 100 MG TABLET (FP) PO SCH (21:16)
[2016-10-04] MEDS: INSULIN DETEMIR 100 UNITS/ML MDV SQ SCH (21:16)
[2016-10-04] MEDS: MONTELUKAST NA 10 MG TABLET PO SCH (21:17)
[2016-10-04] MEDS: ATORVASTATIN CA 40 MG TABLET (FP) PO SCH (21:17)
[2016-10-04] MEDS: diphenhydrAMINE HCL 50 MG CAPSULE PO PRN (21:18)
[2016-10-05] MEDS: VITAMINS A AND D TOPICAL OINTMENT 60 GM TUBE TP SCH ×2 (00:40→06:36)
[2016-10-05] MEDS ORDERED: PT OWN MED DRAWER 7, Y5N ONE ×3 (05:18→08:16)
[2016-10-05] MEDS ORDERED: INSULIN (NOVOLOG) ASPART 100 UNITS/ML 10ML VIAL ONE (06:31)
[2016-10-05] MEDS: BENZOCAINE 20 % GEL 9 GM TUBE MM PRN (06:38)
[2016-10-05 06:52] VITALS: TEMP 97.6
[2016-10-05] MEDS: INSULIN (NOVOLOG) ASPART 100 UNITS/ML 10ML VIAL SQ SCH (07:40)
[2016-10-05] MEDS: BUDESONIDE/FORMETEROL FUMARATE 80/4.5 mcg INHALER IH SCH (09:47)
[2016-10-05] MEDS: LISINOPRIL 10 MG TABLET (FP) PO SCH (09:48)
[2016-10-05] MEDS: METOPROLOL TARTRATE 25 MG TABLET (FP) PO SCH (09:48)
[2016-10-05] MEDS: NAPHAZOLINE/PHENIRAMINE OPHTHALMIC 15 ML BOTTLE OU SCH (09:48)
[2016-10-05] MEDS: PRENATAL VITAMINS W/ FOLIC ACID TABLET (FP) PO SCH (09:48)
[2016-10-05] MEDS: APIXABAN 5 MG TABLET PO SCH (09:48)
[2016-10-05 10:02] VITALS: BP 118/69; PULSE 78
== END 2016-10-05 10:09 | disposition home or self-care (01) | DRG 772 ==
LOC: YASAS 11:40 → Y3E 11:42
PROVIDERS: ADMIT Psychiatry & Neurology Psychiatry; ATTEND Psychiatry & Neurology Psychiatry
PROC: HZ42ZZZ Group Counseling for Substance Abuse Treatment, Cognitive-Behavioral (ICD-10-PCS; principal; 2016-09-07)
DX: F10.20 Alcohol dependence, uncomplicated (principal); F14.20 Cocaine dependence, uncomplicated; J45.909 Unspecified asthma, uncomplicated; J44.9 Chronic obstructive pulmonary disease, unspecified; E11.9 Type 2 diabetes mellitus without complications; Z86.79 Personal history of other diseases of the circulatory system; R19.5 Other fecal abnormalities
CPT/HCPCS: 36415; 80053; 81003; 82272; 85027; 85610; 94640

== ENCOUNTER 2017-06-08 11:43 | Inpatient (IN) | payer OTHER ==
[2017-06-08 12:28] VITALS: BMI 46.0
--- NOTE | 2017-06-08 13:56 | HP ---
CIWA Score - CIWA Score Nausea/Vomitin-No Nausea/No Vomiting Muscle Tremors: 4-Moderate,w/Arms Extend Anxiety: 4-Mod. Anxious/Guarded Agitation: 2 Paroxysmal Sweats: No Perspiration Orientation: 0-Oriented Tacttile Disturbances: 2-Mild Itch/Numbness/Burn Auditory Disturbances: 0-None Visual Disturbances: 0-None Headache: 4-Moderately Severe CIWA-Ar Total Score: 16 Admission ROS S - HPI Chief Complaint: "I need help and I need to try to get better." Patient is here to Detox from Alcohol. Allergies/Adverse Reactions: Allergies Allergy/AdvReac Type Severity Reaction Status Date / Time Sulfa (Sulfonamide Allergy Hives Verified 06/08/17 12:54 Antibiotics) History of Present Illness: Patient is a 57 YO female here to Detox from Alcohol. Patient has had several previous Detox / Rehab admissions at [facility] in the past (Last: 08/2016). Exam Limitations: No Limitations - Ebola screening Have you traveled outside of the country in the last 21 days: No Have you had contact with anyone from an Ebola affected area: No Have you been sick,other than usual withdrawal symptoms: No Do you have a fever: No - Review of Systems Constitutional: Chills, Fever, Loss of Appetite, Malaise, Night Sweats, Changes in sleep EENT: reports: Other (Dry Eyes.) Respiratory: reports: Shortness of Breath, Productive cough Cardiac: reports: Palpitations GI: reports: Blood Streaked Bowels (Patient reports history of Hemmorrhoids.) : reports: No Symptoms Reported Musculoskeletal: reports: Back Pain, Joint Pain, Muscle Pain, Neck Pain, Joint Stiffness Integumentary: reports: No Symptoms Reported Neuro: reports: Headache, Tremors Endocrine: reports: No Symptoms Reported Hematology: reports: No Symptoms Reported, Easy Bleeding (Patient currently taking eliquis, 5 mg PO BID for Atrial Fibrillation.) Psychiatric: reports: Judgement Intact, Mood/Affect Appropiate, Orientated x3, Anxious, Depressed (Only due to recent in family. Patient declines Psychiatric Consult at this time.) Other Systems: Reviewed and Negative Patient History - Patient Medical History Hx Anemia: No Hx Asthma: Yes (Pt is on meds.) Hx Chronic Obstructive Pulmonary Disease (COPD): No Hx Cancer: No Hx Cardiac Disorders: Yes (Pt had a congential heart defect repaired at 8 yrs old; A-FIB, Dx'd 2006.) Hx Congestive Heart Failure: No Hx Hypertension: Yes (on meds.) Hx Hypercholesterolemia: Yes (ON MEDS) Hx Pacemaker: No HX Cerebrovascular Accident: No Hx Seizures: No Hx Dementia: No Hx Diabetes: Yes (Takes Insulin.) Hx Gastrointestinal Disorders: No Hx Liver Disease: No Hx Genitourinary Disorders: No Hx Sexually Transmitted Disorders: No Hx Renal Disease (ESRD): No Hx Thyroid Disease: No Hx Human Immunodeficiency Virus (HIV): No (Last tested: 08/2016: NEGATIVE.) Hx Hepatitis C: No (Never Tested.) Hx Depression: No (Only due to recent in family.) Hx Suicide Attempt: No (PATIENT DENIES CURRENT SI / HI.) Hx Bipolar Disorder: No Hx Schizophrenia: No Other Medical History: DENIES. - Patient Surgical History Past Surgical History: Yes Hx Neurologic Surgery: No Hx Cataract Extraction: No Hx Cardiac Surgery: Yes (at age of 8yrs old) Hx Lung Surgery: No Hx Breast Surgery: No Hx Breast Biopsy: No Hx Abdominal Surgery: No Hx Appendectomy: No Hx Cholecystectomy: No Hx Genitourinary Surgery: No Hx Section: No Hx Orthopedic Surgery: No Hx Hysterectomy: No Other Surgical History: Bunion Correction, Bilateral, 2015. Anesthesia Reaction: Yes (Cannot be under anasthesia for > 1 hour.) - PPD History Previous Implant?: Yes Documented Results: Positive w/proof (Completed full course of antibiotic treatment in . CXR: 08/2016.) Implanted On Prior [facility] Admission?: No PPD to be Administered?: No - Reproductive History Patient is a Female of Child Bearing Age (11 -55 yrs old): Yes Last Menstrual Period: 05/25/17 Patient : No - Smoking Cessation Smoking history: Former smoker Have you smoked in the past 12 months: No If you are a former smoker, when did you quit?: 20 yrs ago Cigars Per Day: 0 Hx Chewing Tobacco Use: No Initiated information on smoking cessation: Yes 'Breaking Loose' booklet given: 06/08/17 (GIVEN ON UNIT.) - Substance & Tx. History Hx Alcohol Use: Yes Hx Substance Use: Yes Substance Use Type: Alcohol, Cocaine Hx Substance Use Treatment: Yes (Previous Detox / Rehab admissions at [facility] (Last : 08/2016).) - Substances Abused Alcohol Route: Oral Frequency: Daily Amount used: 1 PINT AND UP VODKA Age of first use: 37 Date of Last Use: 06/07/17 Cocaine Route: Inhalation Frequency: 3-6 times per week Amount used: $80 Age of first use: 37 Date of Last Use: 06/06/17 Family Disease History - Family Disease History Family Disease History: Heart Disease: Father (.), CA: Mother ( , Lung Ca.), Other: Father, Brother (, Unknown Cause.) Admission Physical Exam [facility] - Vital Signs Vital Signs: Vital Signs - 24 hr 06/08/17 12:24 Temperature 98.0 F Pulse Rate 90 Respiratory 18 Rate Blood Pressure 119/79 - Physical General Appearance: Yes: No Apparent Distress, Nourished, Appropriately Dressed , Tremorous, Anxious HEENTM: Yes: Hearing grossly Normal, Normocephalic, Normal Voice, MAYLIN, Pharynx Normal, Tm's normal Respiratory: Yes: Chest Non-Tender, No Respiratory Distress, No Accessory Muscle Use, Wheezing Neck: Yes: No masses,lesions,Nodules, Supple, Trachea in good position Breast: Yes: Breast Exam Deferred Cardiology: Yes: Regular Rhythm, Regular Rate, S1, S2 Abdominal: Yes: Normal Bowel Sounds, Non Tender, Soft, Protuberent Genitourinary: Yes: Within Normal Limits Back: Yes: Decreased Range of Motion Musculoskeletal: Yes: Gait Steady, Back pain, Joint Stiffness, Muscle Pain Extremities: Yes: Tremors Neurological: Yes: Fully Oriented, Alert, Normal Mood/Affect, Normal Response Integumentary: Yes: Normal Color, Dry, Warm Lymphatic: Yes: Within Normal Limits - Diagnostic (1) Cocaine dependence, uncomplicated Current Visit: Yes Status: Acute (2) Positive PPD, treated Current Visit: No Status: Resolved Comment: CXR: 08/2016. (3) Alcohol dependence with uncomplicated withdrawal Current Visit: Yes Status: Acute (4) Diabetes mellitus, type II, insulin dependent Current Visit: Yes Status: Chronic Comment: BGM TIDAC LANTUS 40 UNITS HS NOVOLOG 20 UNITS ACBK (5) History of atrial fibrillation Current Visit: Yes Status: Chronic Comment: takes eliquis (6) Hypercholesteremia Current Visit: Yes Status: Chronic (7) Hypertension Current Visit: Yes Status: Chronic Qualifiers: Hypertension type: essential hypertension Qualified Code(s): I10 - Essential (primary) hypertension Comment: LISINOPRIL+METOPROLOL (8) Asthma Current Visit: Yes Status: Chronic Qualifiers: Asthma severity: moderate Asthma persistence: persistent Asthma complication type: uncomplicated Qualified Code(s): J45.40 - Moderate persistent asthma, uncomplicated Cleared for Admission [facility] - Detox or Rehab S Level of Care: Medically Managed Detox Regimen/Protocol: Librium S Breath Alcohol Content Breath Alcohol Content: 0 Urine Pregancy Test - Result Urine Test Results: Negative- NO Line Present Urine Drug Screen - Results Drug Screen Negative: No Urine Drug Screen Results: STONE-Cocaine, OPI-Opiates
[2017-06-08] MEDS ORDERED: MAGNESIUM CITRATE 300 ML BOTTLE PO PRN (14:29)
[2017-06-08] MEDS ORDERED: MAG HYDROX/AL HYDROX/SIMETH 30 ML UNIT-DOSE CUP PO PRN (14:29)
[2017-06-08] MEDS ORDERED: P-EPHED 60MG/TRIPROLIDI 2.5MG TABLET PO PRN (14:29)
[2017-06-08] MEDS ORDERED: LOPERAMIDE HCL 2 MG CAPSULE PO PRN (14:29)
[2017-06-08] MEDS ORDERED: MAGNESIUM HYDROX 2400MG/30ML ORAL SUSPENSION 30 ML CUP PO PRN (14:29)
[2017-06-08] MEDS ORDERED: MENTHOL/PHENOL 1 EACH UD MM PRN (14:29)
[2017-06-08] MEDS ORDERED: guaiFENesin/D-METHORPHAN HB 10 ML UNIT-DOSE CUPS PO PRN (14:29)
[2017-06-08] MEDS ORDERED: chlordiazePOXIDE HCL 25 MG CAPSULE PO PRN (14:29)
[2017-06-08] MEDS ORDERED: ACETAMINOPHEN 325 MG TABLET (FP) PO PRN (14:29)
[2017-06-08] MEDS ORDERED: COLLOIDAL OATMEAL 1 BAR EACH TP PRN (14:35)
[2017-06-08] MEDS ORDERED: WITCH HAZEL 50% (TUCKS) 40 PAD/JAR PAD TP PRN (14:36)
[2017-06-08] MEDS ORDERED: chlordiazePOXIDE HCL 25 MG CAPSULE PO ONE (14:50)
[2017-06-08] MEDS ORDERED: ALBUTEROL SO4 18 GM HFA INHALER IH PRN (15:33)
[2017-06-08] MEDS ORDERED: predniSONE 20 MG TABLET (UD) PO SCH (15:45)
[2017-06-08] MEDS ORDERED: BUDESONIDE/FORMETEROL FUMARATE 80/4.5 mcg INHALER IH SCH (15:45)
[2017-06-08] MEDS ORDERED: APIXABAN 5 MG TABLET PO SCH (15:45)
[2017-06-08 17:34] LABS: MCH 28.8 pg (25.7-33.7); MCHC 32.6 g/dl (32.0-36.0); MEAN CELL VOLUME 88.2 fl (80-96); MEAN PLT VOLUME 9.8 fl (7.5-11.1); PLATELET COUNT 255 K/MM3 (134-434); RDW 15.3 % (11.6-15.6); WHITE BLOOD COUNT 10.3 K/mm3 (4.0-10.0)
[2017-06-08 17:40] LABS: ANION GAP 10 (8-16); BILIRUBIN,TOTAL 0.4 mg/dL (0.2-1.0); CALCIUM 8.8 mg/dL (8.5-10.1); CO2 28 mmol/L (21-32); GLUCOSE,RANDOM 267 mg/dL (74-106); SGOT/AST 14 U/L (15-37); SGPT/ALT 35 U/L (12-78)
[2017-06-08 17:41] LABS: ALK PHOS 86 U/L (45-117)
[2017-06-08] MEDS: predniSONE 20 MG TABLET (UD) PO SCH (18:48)
[2017-06-08] MEDS: chlordiazePOXIDE HCL 25 MG CAPSULE PO SCH ×2 (18:48→22:07)
[2017-06-08] MEDS: INSULIN SLIDING SCALE (NOVOLOG) 1 VIAL SQ SCH (18:49)
[2017-06-08] MEDS ORDERED: INSULIN (NOVOLOG) ASPART 100 UNITS/ML 10ML VIAL ONE (18:51)
[2017-06-08] MEDS: ARTIFICIAL TEARS (POLYVINYL ALCOHOL 1.4%) OPTH DROPS OU PRN (21:09)
[2017-06-08] MEDS: APIXABAN 5 MG TABLET PO SCH (22:07)
[2017-06-08] MEDS: ATORVASTATIN CA 40 MG TABLET (FP) PO SCH (22:07)
[2017-06-08] MEDS: METOPROLOL TARTRATE 25 MG TABLET (FP) PO SCH (22:07)
[2017-06-08] MEDS: THIAMINE HCL 100 MG TABLET (FP) PO SCH (22:07)
[2017-06-08] MEDS: MONTELUKAST NA 10 MG TABLET PO SCH (22:07)
[2017-06-08] MEDS: BUDESONIDE/FORMETEROL FUMARATE 80/4.5 mcg INHALER IH SCH (22:08)
[2017-06-08] MEDS: INSULIN DETEMIR 100 UNITS/ML MDV SQ SCH (22:08)
[2017-06-09 01:15] LABS: URINE APPEARANCE SLCLOUDY; URINE BILIRUBIN NEGATIVE (NEGATIVE); URINE BLOOD NEGATIVE (NEGATIVE); URINE COLOR LTYELLOW; URINE GLUCOSE (UA) 3+ (NEGATIVE); URINE KETONE NEGATIVE (NEGATIVE); URINE LEUK ESTERASE NEGATIVE (NEGATIVE); URINE NITRITE NEGATIVE (NEGATIVE); URINE PROTEIN NEGATIVE (NEGATIVE); URINE UROBILINOGEN NEGATIVE mg/dL (0.2-1.0)
[2017-06-09] MEDS: chlordiazePOXIDE HCL 25 MG CAPSULE PO SCH ×4 (06:47→22:05)
[2017-06-09] MEDS: INSULIN (NOVOLOG) ASPART 100 UNITS/ML 10ML VIAL SQ SCH (07:55)
[2017-06-09] MEDS: INSULIN SLIDING SCALE (NOVOLOG) 1 VIAL SQ SCH ×3 (07:56→17:49)
[2017-06-09] MEDS ORDERED: INSULIN (NOVOLOG) ASPART 100 UNITS/ML 10ML VIAL ONE ×3 (07:57→16:59)
[2017-06-09 09:14] LABS: HIV 1 & 2 AB NEGATIVE; HIV 1 AGp24 NEGATIVE
--- NOTE | 2017-06-09 09:20 | PN ---
[facility] CIWA - CIWA Score Nausea/Vomitin Muscle Tremors: 3 Anxiety: 3 Agitation: 3 Paroxysmal Sweats: 3 Orientation: 0-Oriented Tacttile Disturbances: 1-Very Mild Itch/Numbness Auditory Disturbances: 0-None Visual Disturbances: 0-None Headache: 1-Very Mild CIWA-Ar Total Score: 17 [facility] Progress Note (SOAP) Subjective: nausea, sweats, interrupted sleep, anxiety, tremors, wheezing unrelieved by inhaler and prednison started last night has not had treatment has nebulizer at home Objective: 06/09/17 09:19 Vital Signs - 24 hr 06/08/17 06/08/17 06/09/17 12:24 22:02 00:30 Temperature 98.0 F 98.2 F Pulse Rate 90 91 H Respiratory 18 18 20 Rate Blood Pressure 119/79 143/79 06/09/17 06/09/17 03:30 06:17 Temperature 97.7 F Pulse Rate 82 Respiratory 18 18 Rate Blood Pressure 108/51 Laboratory Tests 06/08/17 06/08/17 06/08/17 13:10 14:55 14:55 WBC 10.3 H RBC 4.47 Hgb 12.9 Hct 39.4 MCV 88.2 MCH 28.8 MCHC 32.6 RDW 15.3 Plt Count 255 MPV 9.8 Sodium 142 Potassium 3.9 Chloride 104 Carbon Dioxide 28 Anion Gap 10 BUN 14 Creatinine 1.0 Creat Clearance w eGFR 57.56 POC Glucometer 291 Random Glucose 267 H D Calcium 8.8 Total Bilirubin 0.4 D AST 14 L ALT 35 D Alkaline Phosphatase 86 Total Protein 7.0 Albumin 4.0 Urine Color Urine Appearance Urine pH Ur Specific [place] Urine Protein Urine Glucose (UA) Urine Ketones Urine Blood Urine Nitrite Urine Bilirubin Urine Urobilinogen HIV 1&2 Antibody Screen HIV P24 Antigen 06/08/17 06/08/17 06/08/17 14:55 18:48 21:48 WBC RBC Hgb Hct MCV MCH MCHC RDW Plt Count MPV Sodium Potassium Chloride Carbon Dioxide Anion Gap BUN Creatinine Creat Clearance w eGFR POC Glucometer 287 Random Glucose Calcium Total Bilirubin AST ALT Alkaline Phosphatase Total Protein Albumin Urine Color Ltyellow Urine Appearance Slcloudy Urine pH 6.0 Ur Specific [place] 1.029 Urine Protein Negative Urine Glucose (UA) 3+ H Urine Ketones Negative Urine Blood Negative Urine Nitrite Negative Urine Bilirubin Negative Urine Urobilinogen Negative HIV 1&2 Antibody Screen Negative HIV P24 Antigen Negative 06/08/17 06/09/17 22:01 07:17 WBC RBC Hgb Hct MCV MCH MCHC RDW Plt Count MPV Sodium Potassium Chloride Carbon Dioxide Anion Gap BUN Creatinine Creat Clearance w eGFR POC Glucometer 274 246 Random Glucose Calcium Total Bilirubin AST ALT Alkaline Phosphatase Total Protein Albumin Urine Color Urine Appearance Urine pH Ur Specific [place] Urine Protein Urine Glucose (UA) Urine Ketones Urine Blood Urine Nitrite Urine Bilirubin Urine Urobilinogen HIV 1&2 Antibody Screen HIV P24 Antigen Assessment: 06/09/17 09:19 acute asthma/copd with wheezing, abnormal EKG, withdrawal sx - cont detox, hyperglycemia, control BS , fluids, exercise
[2017-06-09] MEDS ORDERED: ALBUTEROL SO4 2.5/IPRATROPIUM 0.5 INH SOL 3 ML VIAL.NEB. NEB ONE (09:32)
[2017-06-09] MEDS: PRENATAL VITAMINS W/ FOLIC ACID TABLET (FP) PO SCH (10:21)
[2017-06-09] MEDS: TIOTROPIUM BROMIDE 18 MCG/INH (DEVICE W/ 5 CAPSULES) IH SCH (10:22)
[2017-06-09] MEDS: ARTIFICIAL TEARS (POLYVINYL ALCOHOL 1.4%) OPTH DROPS OU PRN (10:22)
[2017-06-09] MEDS: predniSONE 20 MG TABLET (UD) PO SCH (10:22)
[2017-06-09] MEDS: APIXABAN 5 MG TABLET PO SCH ×2 (10:23→22:05)
[2017-06-09] MEDS: LISINOPRIL 20 MG TABLET (FP) PO SCH (10:24)
[2017-06-09] MEDS: BUDESONIDE/FORMETEROL FUMARATE 80/4.5 mcg INHALER IH SCH ×2 (10:24→22:08)
[2017-06-09] MEDS ORDERED: ALBUTEROL SO4 2.5/IPRATROPIUM 0.5 INH SOL 3 ML VIAL.NEB. NEB SCH (12:00)
[2017-06-09 13:44] LABS: URINE LEUK ESTERASE Negative (NEGATIVE)
--- NOTE | 2017-06-09 16:34 | EKG ---
Test Reason : Blood Pressure : / mmHG Vent. Rate : 083 BPM Atrial Rate : 083 BPM P-R Int : 146 ms QRS Dur : 086 ms QT Int : 368 ms P-R-T Axes : 063 -05 071 degrees QTc Int : 432 ms SINUS RHYTHM WITH PREMATURE SUPRAVENTRICULAR COMPLEXES AND WITH OCCASIONAL PREMATURE VENTRICULAR COMPLEXES OTHERWISE NORMAL ECG WHEN COMPARED WITH ECG OF 08-JUN-2017 18:55, PREMATURE VENTRICULAR COMPLEXES ARE NOW PRESENT Confirmed by MEETA PERALES, HUI ([id number]) on 06/09/2017 4:33:52 PM Referred By: Confirmed By:HUI TIM MD
--- NOTE | 2017-06-09 16:35 | EKG ---
Test Reason : Blood Pressure : / mmHG Vent. Rate : 090 BPM Atrial Rate : 090 BPM P-R Int : 000 ms QRS Dur : 090 ms QT Int : 342 ms P-R-T Axes : 076 003 080 degrees QTc Int : 418 ms SINUS RHYTHM WITH MARKED SINUS ARRHYTHMIA WITH PREMATURE SUPRAVENTRICULAR COMPLEXES OTHERWISE NORMAL ECG WHEN COMPARED WITH ECG OF 03-SEP-2016 17:52, PREVIOUS ECG HAS UNDETERMINED RHYTHM, NEEDS REVIEW Confirmed by MEETA PERALES, HUI ([id number]) on 06/09/2017 4:35:55 PM Referred By: Confirmed By:HUI TIM MD
[2017-06-09] MEDS: ALBUTEROL SO4 0.083% IH SOL 2.5 MG/3 ML VIAL.NEB. NEB SCH (18:05)
[2017-06-09] MEDS: THIAMINE HCL 100 MG TABLET (FP) PO SCH (22:04)
[2017-06-09] MEDS: MONTELUKAST NA 10 MG TABLET PO SCH (22:05)
[2017-06-09] MEDS: METOPROLOL TARTRATE 25 MG TABLET (FP) PO SCH (22:05)
[2017-06-09] MEDS: INSULIN DETEMIR 100 UNITS/ML MDV SQ SCH (22:05)
[2017-06-09] MEDS: ATORVASTATIN CA 40 MG TABLET (FP) PO SCH (22:05)
[2017-06-10] MEDS: ALBUTEROL SO4 0.083% IH SOL 2.5 MG/3 ML VIAL.NEB. NEB SCH ×3 (00:35→22:06)
[2017-06-10] MEDS: chlordiazePOXIDE HCL 25 MG CAPSULE PO SCH ×2 (06:37→10:10)
[2017-06-10] MEDS ORDERED: INSULIN (NOVOLOG) ASPART 100 UNITS/ML 10ML VIAL ONE ×3 (08:04→16:50)
[2017-06-10] MEDS: INSULIN (NOVOLOG) ASPART 100 UNITS/ML 10ML VIAL SQ SCH (08:06)
[2017-06-10] MEDS: INSULIN SLIDING SCALE (NOVOLOG) 1 VIAL SQ SCH ×3 (08:10→17:07)
[2017-06-10] MEDS: predniSONE 20 MG TABLET (UD) PO SCH (10:09)
[2017-06-10] MEDS: LISINOPRIL 20 MG TABLET (FP) PO SCH (10:09)
[2017-06-10] MEDS: PRENATAL VITAMINS W/ FOLIC ACID TABLET (FP) PO SCH (10:09)
[2017-06-10] MEDS: APIXABAN 5 MG TABLET PO SCH ×2 (10:10→22:07)
[2017-06-10] MEDS: BUDESONIDE/FORMETEROL FUMARATE 80/4.5 mcg INHALER IH SCH ×2 (10:10→22:14)
--- NOTE | 2017-06-10 10:26 | PN ---
[facility] CIWA - CIWA Score Nausea/Vomitin-No Nausea/No Vomiting Muscle Tremors: 3 Anxiety: 3 Agitation: 3 Paroxysmal Sweats: 3 Orientation: 0-Oriented Tacttile Disturbances: 0-None Auditory Disturbances: 0-None Visual Disturbances: 0-None Headache: 0-None Present CIWA-Ar Total Score: 12 S Progress Note (SOAP) Subjective: agitation anxiety sweats Objective: 06/10/17 10:25 Vital Signs Temperature 98.1 F 06/10/17 09:56 Pulse Rate 83 06/10/17 09:56 Respiratory Rate 18 06/10/17 09:56 Blood Pressure 120/60 06/10/17 09:56 O2 Sat by Pulse Oximetry (%) Laboratory Tests 06/08/17 06/08/17 06/08/17 13:10 14:55 14:55 WBC 10.3 H RBC 4.47 Hgb 12.9 Hct 39.4 MCV 88.2 MCH 28.8 MCHC 32.6 RDW 15.3 Plt Count 255 MPV 9.8 Sodium 142 Potassium 3.9 Chloride 104 Carbon Dioxide 28 Anion Gap 10 BUN 14 Creatinine 1.0 Creat Clearance w eGFR 57.56 POC Glucometer 291 Random Glucose 267 H D Hemoglobin A1c % Calcium 8.8 Total Bilirubin 0.4 D AST 14 L ALT 35 D Alkaline Phosphatase 86 Total Protein 7.0 Albumin 4.0 Urine Color Urine Appearance Urine pH Ur Specific [place] Urine Protein Urine Glucose (UA) Urine Ketones Urine Blood Urine Nitrite Urine Bilirubin Urine Urobilinogen Ur Leukocyte Esterase RPR Titer HIV 1&2 Antibody Screen HIV P24 Antigen 06/08/17 06/08/17 06/08/17 14:55 14:55 14:55 WBC RBC Hgb Hct MCV MCH MCHC RDW Plt Count MPV Sodium Potassium Chloride Carbon Dioxide Anion Gap BUN Creatinine Creat Clearance w eGFR POC Glucometer Random Glucose Hemoglobin A1c % 9.7 H D Calcium Total Bilirubin AST ALT Alkaline Phosphatase Total Protein Albumin Urine Color Urine Appearance Urine pH Ur Specific [place] Urine Protein Urine Glucose (UA) Urine Ketones Urine Blood Urine Nitrite Urine Bilirubin Urine Urobilinogen Ur Leukocyte Esterase RPR Titer Nonreactive HIV 1&2 Antibody Screen Negative HIV P24 Antigen Negative 06/08/17 06/08/17 06/08/17 18:48 21:48 22:01 WBC RBC Hgb Hct MCV MCH MCHC RDW Plt Count MPV Sodium Potassium Chloride Carbon Dioxide Anion Gap BUN Creatinine Creat Clearance w eGFR POC Glucometer 287 274 Random Glucose Hemoglobin A1c % Calcium Total Bilirubin AST ALT Alkaline Phosphatase Total Protein Albumin Urine Color Ltyellow Urine Appearance Slcloudy Urine pH 6.0 Ur Specific [place] 1.029 Urine Protein Negative Urine Glucose (UA) 3+ H Urine Ketones Negative Urine Blood Negative Urine Nitrite Negative Urine Bilirubin Negative Urine Urobilinogen Negative Ur Leukocyte Esterase Negative RPR Titer HIV 1&2 Antibody Screen HIV P24 Antigen 06/09/17 06/09/17 06/09/17 07:17 11:21 16:44 WBC RBC Hgb Hct MCV MCH MCHC RDW Plt Count MPV Sodium Potassium Chloride Carbon Dioxide Anion Gap BUN Creatinine Creat Clearance w eGFR POC Glucometer 246 257 412 Random Glucose Hemoglobin A1c % Calcium Total Bilirubin AST ALT Alkaline Phosphatase Total Protein Albumin Urine Color Urine Appearance Urine pH Ur Specific [place] Urine Protein Urine Glucose (UA) Urine Ketones Urine Blood Urine Nitrite Urine Bilirubin Urine Urobilinogen Ur Leukocyte Esterase RPR Titer HIV 1&2 Antibody Screen HIV P24 Antigen 06/09/17 06/10/17 22:02 05:52 WBC RBC Hgb Hct MCV MCH MCHC RDW Plt Count MPV Sodium Potassium Chloride Carbon Dioxide Anion Gap BUN Creatinine Creat Clearance w eGFR POC Glucometer 487 376 Random Glucose Hemoglobin A1c % Calcium Total Bilirubin AST ALT Alkaline Phosphatase Total Protein Albumin Urine Color Urine Appearance Urine pH Ur Specific [place] Urine Protein Urine Glucose (UA) Urine Ketones Urine Blood Urine Nitrite Urine Bilirubin Urine Urobilinogen Ur Leukocyte Esterase RPR Titer HIV 1&2 Antibody Screen HIV P24 Antigen [id number] ambulating no acute distress Assessment: 06/10/17 10:25 mild withdrawal sx Plan: continue detox increase fluids
[2017-06-10] MEDS: TIOTROPIUM BROMIDE 18 MCG/INH (DEVICE W/ 5 CAPSULES) IH SCH (13:11)
[2017-06-10] MEDS: chlordiazePOXIDE 5 MG CAPSULE PO SCH ×2 (17:09→22:15)
[2017-06-10] MEDS: MONTELUKAST NA 10 MG TABLET PO SCH (22:07)
[2017-06-10] MEDS: ATORVASTATIN CA 40 MG TABLET (FP) PO SCH (22:07)
[2017-06-10] MEDS: METOPROLOL TARTRATE 25 MG TABLET (FP) PO SCH (22:07)
[2017-06-10] MEDS: THIAMINE HCL 100 MG TABLET (FP) PO SCH (22:07)
[2017-06-10] MEDS: INSULIN DETEMIR 100 UNITS/ML MDV SQ SCH (22:13)
[2017-06-10] MEDS ORDERED: hydrOXYzine PAMOATE 50 MG CAPSULE (FP) PO ONE (22:16)
[2017-06-11] MEDS: ALBUTEROL SO4 0.083% IH SOL 2.5 MG/3 ML VIAL.NEB. NEB SCH ×4 (00:30→23:18)
[2017-06-11] MEDS: chlordiazePOXIDE 5 MG CAPSULE PO SCH ×2 (05:56→10:15)
[2017-06-11] MEDS ORDERED: INSULIN (NOVOLOG) ASPART 100 UNITS/ML 10ML VIAL ONE ×3 (07:42→16:56)
[2017-06-11] MEDS: INSULIN (NOVOLOG) ASPART 100 UNITS/ML 10ML VIAL SQ SCH (07:51)
[2017-06-11] MEDS: INSULIN SLIDING SCALE (NOVOLOG) 1 VIAL SQ SCH ×3 (07:51→16:54)
[2017-06-11] MEDS: predniSONE 20 MG TABLET (UD) PO SCH (10:15)
[2017-06-11] MEDS: APIXABAN 5 MG TABLET PO SCH ×2 (10:15→22:06)
[2017-06-11] MEDS: PRENATAL VITAMINS W/ FOLIC ACID TABLET (FP) PO SCH (10:16)
[2017-06-11] MEDS: TIOTROPIUM BROMIDE 18 MCG/INH (DEVICE W/ 5 CAPSULES) IH SCH (10:16)
[2017-06-11] MEDS: ARTIFICIAL TEARS (POLYVINYL ALCOHOL 1.4%) OPTH DROPS OU PRN (10:16)
[2017-06-11] MEDS: BUDESONIDE/FORMETEROL FUMARATE 80/4.5 mcg INHALER IH SCH ×2 (10:16→22:06)
[2017-06-11] MEDS: LISINOPRIL 20 MG TABLET (FP) PO SCH (10:17)
--- NOTE | 2017-06-11 16:32 | EKG ---
Test Reason : Blood Pressure : / mmHG Vent. Rate : 076 BPM Atrial Rate : 220 BPM P-R Int : 000 ms QRS Dur : 104 ms QT Int : 358 ms P-R-T Axes : 000 -10 083 degrees QTc Int : 402 ms ATRIAL FIBRILLATION WITH PREMATURE VENTRICULAR OR ABERRANTLY CONDUCTED COMPLEXES ABNORMAL ECG WHEN COMPARED WITH ECG OF 09-JUN-2017 09:07, ATRIAL FIBRILLATION HAS REPLACED SINUS RHYTHM Confirmed by JAMES PERALES, DEBBIE ([id number]) on 06/11/2017 4:32:24 PM Referred By: JOJO BOLIVAR Confirmed By:DEBBIE RAMIREZ MD
--- NOTE | 2017-06-11 16:32 | PN ---
[facility] Progress Note (SOAP) Subjective: Sweating,interrupted sleep,restless Objective: 06/11/17 16:30 Vital Signs - 8 hr 06/11/17 06/11/17 10:00 15:24 Temperature 97.7 F 98.4 F Pulse Rate 81 86 Respiratory 16 20 Rate Blood Pressure 130/74 130/78 Laboratory Tests 06/08/17 06/08/17 06/08/17 13:10 14:55 14:55 WBC 10.3 H RBC 4.47 Hgb 12.9 Hct 39.4 MCV 88.2 MCH 28.8 MCHC 32.6 RDW 15.3 Plt Count 255 MPV 9.8 Sodium 142 Potassium 3.9 Chloride 104 Carbon Dioxide 28 Anion Gap 10 BUN 14 Creatinine 1.0 Creat Clearance w eGFR 57.56 POC Glucometer 291 Random Glucose 267 H D Hemoglobin A1c % Calcium 8.8 Total Bilirubin 0.4 D AST 14 L ALT 35 D Alkaline Phosphatase 86 Total Protein 7.0 Albumin 4.0 Urine Color Urine Appearance Urine pH Ur Specific [place] Urine Protein Urine Glucose (UA) Urine Ketones Urine Blood Urine Nitrite Urine Bilirubin Urine Urobilinogen Ur Leukocyte Esterase RPR Titer HIV 1&2 Antibody Screen HIV P24 Antigen 06/08/17 06/08/17 06/08/17 14:55 14:55 14:55 WBC RBC Hgb Hct MCV MCH MCHC RDW Plt Count MPV Sodium Potassium Chloride Carbon Dioxide Anion Gap BUN Creatinine Creat Clearance w eGFR POC Glucometer Random Glucose Hemoglobin A1c % 9.7 H D Calcium Total Bilirubin AST ALT Alkaline Phosphatase Total Protein Albumin Urine Color Urine Appearance Urine pH Ur Specific [place] Urine Protein Urine Glucose (UA) Urine Ketones Urine Blood Urine Nitrite Urine Bilirubin Urine Urobilinogen Ur Leukocyte Esterase RPR Titer Nonreactive HIV 1&2 Antibody Screen Negative HIV P24 Antigen Negative 06/08/17 06/08/17 06/08/17 18:48 21:48 22:01 WBC RBC Hgb Hct MCV MCH MCHC RDW Plt Count MPV Sodium Potassium Chloride Carbon Dioxide Anion Gap BUN Creatinine Creat Clearance w eGFR POC Glucometer 287 274 Random Glucose Hemoglobin A1c % Calcium Total Bilirubin AST ALT Alkaline Phosphatase Total Protein Albumin Urine Color Ltyellow Urine Appearance Slcloudy Urine pH 6.0 Ur Specific [place] 1.029 Urine Protein Negative Urine Glucose (UA) 3+ H Urine Ketones Negative Urine Blood Negative Urine Nitrite Negative Urine Bilirubin Negative Urine Urobilinogen Negative Ur Leukocyte Esterase Negative RPR Titer HIV 1&2 Antibody Screen HIV P24 Antigen 06/09/17 06/09/17 06/09/17 07:17 11:21 16:44 WBC RBC Hgb Hct MCV MCH MCHC RDW Plt Count MPV Sodium Potassium Chloride Carbon Dioxide Anion Gap BUN Creatinine Creat Clearance w eGFR POC Glucometer 246 257 412 Random Glucose Hemoglobin A1c % Calcium Total Bilirubin AST ALT Alkaline Phosphatase Total Protein Albumin Urine Color Urine Appearance Urine pH Ur Specific [place] Urine Protein Urine Glucose (UA) Urine Ketones Urine Blood Urine Nitrite Urine Bilirubin Urine Urobilinogen Ur Leukocyte Esterase RPR Titer HIV 1&2 Antibody Screen HIV P24 Antigen 06/09/17 06/10/17 06/10/17 22:02 05:52 11:29 WBC RBC Hgb Hct MCV MCH MCHC RDW Plt Count MPV Sodium Potassium Chloride Carbon Dioxide Anion Gap BUN Creatinine Creat Clearance w eGFR POC Glucometer 487 376 305 Random Glucose Hemoglobin A1c % Calcium Total Bilirubin AST ALT Alkaline Phosphatase Total Protein Albumin Urine Color Urine Appearance Urine pH Ur Specific [place] Urine Protein Urine Glucose (UA) Urine Ketones Urine Blood Urine Nitrite Urine Bilirubin Urine Urobilinogen Ur Leukocyte Esterase RPR Titer HIV 1&2 Antibody Screen HIV P24 Antigen 06/10/17 06/11/17 21:54 11:24 WBC RBC Hgb Hct MCV MCH MCHC RDW Plt Count MPV Sodium Potassium Chloride Carbon Dioxide Anion Gap BUN Creatinine Creat Clearance w eGFR POC Glucometer 395 324 Random Glucose Hemoglobin A1c % Calcium Total Bilirubin AST ALT Alkaline Phosphatase Total Protein Albumin Urine Color Urine Appearance Urine pH Ur Specific [place] Urine Protein Urine Glucose (UA) Urine Ketones Urine Blood Urine Nitrite Urine Bilirubin Urine Urobilinogen Ur Leukocyte Esterase RPR Titer HIV 1&2 Antibody Screen HIV P24 Antigen labs noted Assessment: 06/11/17 16:31 Withdrawal sx. Plan: Continue detox
[2017-06-11] MEDS: chlordiazePOXIDE HCL 10 MG CAPSULE PO SCH ×2 (16:58→22:05)
[2017-06-11] MEDS: MONTELUKAST NA 10 MG TABLET PO SCH (22:05)
[2017-06-11] MEDS: THIAMINE HCL 100 MG TABLET (FP) PO SCH (22:05)
[2017-06-11] MEDS: ATORVASTATIN CA 40 MG TABLET (FP) PO SCH (22:05)
[2017-06-11] MEDS: METOPROLOL TARTRATE 25 MG TABLET (FP) PO SCH (22:05)
[2017-06-11] MEDS: INSULIN DETEMIR 100 UNITS/ML MDV SQ SCH (22:14)
[2017-06-12] MEDS: chlordiazePOXIDE HCL 10 MG CAPSULE PO SCH (05:40)
[2017-06-12] MEDS ORDERED: INSULIN (NOVOLOG) ASPART 100 UNITS/ML 10ML VIAL ONE (06:13)
[2017-06-12] MEDS: ALBUTEROL SO4 0.083% IH SOL 2.5 MG/3 ML VIAL.NEB. NEB SCH (06:30)
[2017-06-12 06:49] VITALS: BP 109/50; PULSE 81; TEMP 97.4
[2017-06-12] MEDS: INSULIN SLIDING SCALE (NOVOLOG) 1 VIAL SQ SCH (08:00)
[2017-06-12] MEDS: INSULIN (NOVOLOG) ASPART 100 UNITS/ML 10ML VIAL SQ SCH (08:00)
--- NOTE | 2017-06-12 10:03 | DS ---
[facility] Detox Discharge Summary Admission Date: 06/08/17 Discharge Date: 06/12/17 - History Present History: Alcohol Dependence, Cocaine Dependence Pertinent Past History: Asthma Type II DM HTN Hypercholesterolemia - Physical Exam Results Vital Signs: Vital Signs Temperature 97.4 F L 06/12/17 06:46 Pulse Rate 81 06/12/17 06:46 Respiratory Rate 18 06/12/17 06:46 Blood Pressure 109/50 06/12/17 06:46 O2 Sat by Pulse Oximetry (%) Pertinent Admission Physical Exam Findings: Withdrawal Sx. Laboratory Tests 06/08/17 06/08/17 06/08/17 13:10 14:55 14:55 WBC 10.3 H RBC 4.47 Hgb 12.9 Hct 39.4 MCV 88.2 MCH 28.8 MCHC 32.6 RDW 15.3 Plt Count 255 MPV 9.8 Sodium 142 Potassium 3.9 Chloride 104 Carbon Dioxide 28 Anion Gap 10 BUN 14 Creatinine 1.0 Creat Clearance w eGFR 57.56 POC Glucometer 291 Random Glucose 267 H D Hemoglobin A1c % Calcium 8.8 Total Bilirubin 0.4 D AST 14 L ALT 35 D Alkaline Phosphatase 86 Total Protein 7.0 Albumin 4.0 Urine Color Urine Appearance Urine pH Ur Specific [place] Urine Protein Urine Glucose (UA) Urine Ketones Urine Blood Urine Nitrite Urine Bilirubin Urine Urobilinogen Ur Leukocyte Esterase RPR Titer HIV 1&2 Antibody Screen HIV P24 Antigen 06/08/17 06/08/17 06/08/17 14:55 14:55 14:55 WBC RBC Hgb Hct MCV MCH MCHC RDW Plt Count MPV Sodium Potassium Chloride Carbon Dioxide Anion Gap BUN Creatinine Creat Clearance w eGFR POC Glucometer Random Glucose Hemoglobin A1c % 9.7 H D Calcium Total Bilirubin AST ALT Alkaline Phosphatase Total Protein Albumin Urine Color Urine Appearance Urine pH Ur Specific [place] Urine Protein Urine Glucose (UA) Urine Ketones Urine Blood Urine Nitrite Urine Bilirubin Urine Urobilinogen Ur Leukocyte Esterase RPR Titer Nonreactive HIV 1&2 Antibody Screen Negative HIV P24 Antigen Negative 06/08/17 06/08/17 06/08/17 18:48 21:48 22:01 WBC RBC Hgb Hct MCV MCH MCHC RDW Plt Count MPV Sodium Potassium Chloride Carbon Dioxide Anion Gap BUN Creatinine Creat Clearance w eGFR POC Glucometer 287 274 Random Glucose Hemoglobin A1c % Calcium Total Bilirubin AST ALT Alkaline Phosphatase Total Protein Albumin Urine Color Ltyellow Urine Appearance Slcloudy Urine pH 6.0 Ur Specific [place] 1.029 Urine Protein Negative Urine Glucose (UA) 3+ H Urine Ketones Negative Urine Blood Negative Urine Nitrite Negative Urine Bilirubin Negative Urine Urobilinogen Negative Ur Leukocyte Esterase Negative RPR Titer HIV 1&2 Antibody Screen HIV P24 Antigen labs noted - Treatment Hospital Course: Detox Protocol Followed, Detoxed Safely, Responded well, Discharged Condition Good, Rehab Referral Accepted Patient has Accepted a Rehab Referral to: [facility] - Medication Discharge Medications: Ambulatory Orders Albuterol Sulfate Inhaler - [Ventolin HFA Inhaler -] 2 inh PO Q4H PRN #1 inh Tiotropium [place] [Spiriva] 1 inh PO DAILY #1 inh 11/18/15 Apixaban [Eliquis -] 5 mg PO Q12H #30 tablet 10/04/16 Atorvastatin Ca [Lipitor] 40 mg PO HS #30 tablet 10/04/16 Fluticasone/Salmeterol [Advair 250-50 Diskus] 1 each IH BID #1 disk.w.dev Lisinopril [Prinivil] 20 mg PO DAILY #30 tablet 10/04/16 Montelukast Na [Singulair -] 10 mg PO HS #30 tablet 10/04/16 Insulin (Novolog) [Novolog Flexpen] 25 units SQ ACBK 06/08/17 Insulin Glargine,Hum.rec.anlog [Lantus Solostar PEN (NF)] 50 units SQ HS Metoprolol Tartrate [Lopressor -] 25 mg PO HS 06/08/17 Prednisone [Deltasone -] 40 mg PO DAILY 06/08/17 SYMBICORT 80/4.5mcg - 2 puff IH BID 06/12/17 - Diagnosis (1) Alcohol dependence with uncomplicated withdrawal Status: Acute (2) Cocaine dependence, uncomplicated Status: Acute (3) Asthma Status: Chronic Qualifiers: Asthma severity: moderate Asthma persistence: persistent Asthma complication type: uncomplicated Qualified Code(s): J45.40 - Moderate persistent asthma, uncomplicated (4) Diabetes mellitus, type II, insulin dependent Status: Chronic (5) History of atrial fibrillation Status: Chronic (6) Hypercholesteremia Status: Chronic (7) Hypertension Status: Chronic Qualifiers: Hypertension type: essential hypertension Qualified Code(s): I10 - Essential (primary) hypertension - AMA Did Patient Leave Against Medical Advice: No
[2017-06-12] MEDS: APIXABAN 5 MG TABLET PO SCH (10:07)
[2017-06-12] MEDS: predniSONE 20 MG TABLET (UD) PO SCH (10:07)
[2017-06-12] MEDS: LISINOPRIL 20 MG TABLET (FP) PO SCH (10:07)
[2017-06-12] MEDS: PRENATAL VITAMINS W/ FOLIC ACID TABLET (FP) PO SCH (10:07)
[2017-06-12] MEDS: TIOTROPIUM BROMIDE 18 MCG/INH (DEVICE W/ 5 CAPSULES) IH SCH (10:38)
[2017-06-12] MEDS: BUDESONIDE/FORMETEROL FUMARATE 80/4.5 mcg INHALER IH SCH (10:39)
== END 2017-06-12 10:26 | disposition other institution (70) | DRG 774 ==
LOC: YASAS 11:43 → Y6N 13:21
PROVIDERS: ADMIT Internal Medicine; ATTEND Internal Medicine
PROC: HZ2ZZZZ Detoxification Services for Substance Abuse Treatment (ICD-10-PCS; principal; 2017-06-08)
DX: F10.230 Alcohol dependence with withdrawal, uncomplicated (principal); F14.20 Cocaine dependence, uncomplicated; I10 Essential (primary) hypertension; J45.41 Moderate persistent asthma with (acute) exacerbation; J44.1 Chronic obstructive pulmonary disease with (acute) exacerbation; E11.65 Type 2 diabetes mellitus with hyperglycemia; I48.91 Unspecified atrial fibrillation; E78.00 Pure hypercholesterolemia, unspecified; R76.11 Nonspecific reaction to tuberculin skin test without active tuberculosis; Z79.4 Long term (current) use of insulin; Z79.01 Long term (current) use of anticoagulants; Z88.2 Allergy status to sulfonamides; Z87.891 Personal history of nicotine dependence
CPT/HCPCS: 36415; 80053; 81003; 83036; 85027; 86593; 87389; 93005; 93010; 94640

== ENCOUNTER 2017-06-12 11:27 | Inpatient (IN) | payer OTHER ==
[2017-06-12] MEDS ORDERED: P-EPHED 60MG/TRIPROLIDI 2.5MG TABLET PO PRN (12:05)
[2017-06-12] MEDS ORDERED: NICOTINE POLACRILEX 2 MG GUM BUC PRN (12:05)
[2017-06-12] MEDS ORDERED: guaiFENesin/D-METHORPHAN HB 10 ML UNIT-DOSE CUPS PO PRN (12:05)
[2017-06-12] MEDS ORDERED: MAGNESIUM CITRATE 300 ML BOTTLE PO PRN (12:05)
[2017-06-12] MEDS ORDERED: ALBUTEROL SO4 18 GM HFA INHALER IH PRN (12:05)
[2017-06-12] MEDS ORDERED: IBUPROFEN 400 MG TABLET (FP) PO PRN (12:05)
[2017-06-12] MEDS ORDERED: MAGNESIUM HYDROX 2400MG/30ML ORAL SUSPENSION 30 ML CUP PO PRN (12:05)
[2017-06-12] MEDS ORDERED: LOPERAMIDE HCL 2 MG CAPSULE PO PRN (12:05)
--- NOTE | 2017-06-12 12:08 | HP ---
[facility] Rehab Assess/Revision - Admission History Admitted to Rehab from: [facility] [place] Date of Admission to Rehab: 06/12/17 - Vital signs Vital Signs: Vital Signs Period Temp Pulse Resp BP Sys/Kennedy Pulse Ox Last 24 Hr 97.8 F 92 20 127/72 - Findings Detox History & Physical reviewed: Yes Concur with findings: Yes Inpatient Rehab Admission - Initial Determination Are CD services needed?: Yes Free of communicable disease: Yes Not in need of hospitalization: Yes - Rehab Admission Criteria Previous failed treatment: Yes Poor recovery environment: Yes Comorbidities: Yes Lacks judgement: Yes Patient is meeting Inpatient Rehab admission criteria:: Yes
[2017-06-12] MEDS ORDERED: APIXABAN 5 MG TABLET PO SCH (12:15)
[2017-06-12] MEDS ORDERED: INSULIN (NOVOLOG) ASPART 100 UNITS/ML 10ML VIAL ONE ×2 (12:34→17:02)
[2017-06-12] MEDS: INSULIN SLIDING SCALE (NOVOLOG) 1 VIAL SQ SCH ×3 (12:36→21:51)
[2017-06-12] MEDS ORDERED: INSULIN (NOVOLOG) ASPART 100 UNITS/ML 10ML VIAL SQ SCH (16:30)
[2017-06-12] MEDS: THIAMINE HCL 100 MG TABLET (FP) PO SCH (21:48)
[2017-06-12] MEDS: ATORVASTATIN CA 40 MG TABLET (FP) PO SCH (21:48)
[2017-06-12] MEDS: METOPROLOL TARTRATE 25 MG TABLET (FP) PO SCH (21:48)
[2017-06-12] MEDS: MONTELUKAST NA 10 MG TABLET PO SCH (21:48)
[2017-06-12] MEDS: APIXABAN 5 MG TABLET PO SCH (21:50)
[2017-06-12] MEDS: BUDESONIDE/FORMETEROL FUMARATE 80/4.5 mcg INHALER IH SCH (21:55)
[2017-06-13] MEDS: INSULIN SLIDING SCALE (NOVOLOG) 1 VIAL SQ SCH ×4 (06:48→21:46)
[2017-06-13] MEDS ORDERED: INSULIN (NOVOLOG) ASPART 100 UNITS/ML 10ML VIAL ONE ×5 (07:05→21:46)
[2017-06-13] MEDS: Insulin (LOG) Aspart 100 UNITS/ML VIAL SQ SCH ×2 (08:06→17:28)
[2017-06-13] MEDS ORDERED: NICOTINE 21 MG/24 HOURS TOPICAL PATCH TD SCH (10:00)
[2017-06-13] MEDS: PRENATAL VITAMINS W/ FOLIC ACID TABLET (FP) PO SCH (10:16)
[2017-06-13] MEDS: LISINOPRIL 20 MG TABLET (FP) PO SCH (10:16)
[2017-06-13] MEDS: predniSONE 20 MG TABLET (UD) PO SCH (10:16)
[2017-06-13] MEDS: BUDESONIDE/FORMETEROL FUMARATE 80/4.5 mcg INHALER IH SCH ×2 (10:16→21:50)
[2017-06-13] MEDS: APIXABAN 5 MG TABLET PO SCH ×2 (10:16→21:49)
[2017-06-13] MEDS: TIOTROPIUM BROMIDE 18 MCG/INH (DEVICE W/ 5 CAPSULES) IH SCH (10:17)
[2017-06-13] MEDS ORDERED: VITAMINS A AND D TOPICAL OINTMENT 60 GM TUBE TP SCH (12:00)
[2017-06-13] MEDS: ACETAMINOPHEN 325 MG TABLET (FP) PO PRN (17:48)
[2017-06-13] MEDS: ALBUTEROL SO4 2.5/IPRATROPIUM 0.5 INH SOL 3 ML VIAL.NEB. NEB PRN (18:46)
[2017-06-13] MEDS ORDERED: PT OWN MED DRAWER 7, Y5N ONE (20:05)
[2017-06-13] MEDS: INSULIN DETEMIR 100 UNITS/ML MDV SQ SCH (21:47)
[2017-06-13] MEDS: THIAMINE HCL 100 MG TABLET (FP) PO SCH (21:49)
[2017-06-13] MEDS: MONTELUKAST NA 10 MG TABLET PO SCH (21:50)
[2017-06-13] MEDS: METOPROLOL TARTRATE 25 MG TABLET (FP) PO SCH (21:50)
[2017-06-13] MEDS: ATORVASTATIN CA 40 MG TABLET (FP) PO SCH (21:50)
[2017-06-14] MEDS ORDERED: INSULIN (NOVOLOG) ASPART 100 UNITS/ML 10ML VIAL SQ SCH (07:00)
[2017-06-14] MEDS ORDERED: INSULIN SQ SCH (07:00)
[2017-06-14] MEDS: INSULIN SLIDING SCALE (NOVOLOG) 1 VIAL SQ SCH ×4 (07:11→21:54)
[2017-06-14] MEDS: VITAMINS A AND D TOPICAL OINTMENT 60 GM TUBE TP PRN (07:57)
[2017-06-14] MEDS ORDERED: PT OWN MED DRAWER 7, Y5N ONE ×2 (07:58→08:58)
[2017-06-14] MEDS: predniSONE 20 MG TABLET (UD) PO SCH (10:08)
[2017-06-14] MEDS: LISINOPRIL 20 MG TABLET (FP) PO SCH (10:09)
[2017-06-14] MEDS: PRENATAL VITAMINS W/ FOLIC ACID TABLET (FP) PO SCH (10:09)
[2017-06-14] MEDS: APIXABAN 5 MG TABLET PO SCH ×2 (10:09→21:55)
[2017-06-14] MEDS: BUDESONIDE/FORMETEROL FUMARATE 80/4.5 mcg INHALER IH SCH ×2 (10:09→21:55)
[2017-06-14] MEDS: TIOTROPIUM BROMIDE 18 MCG/INH (DEVICE W/ 5 CAPSULES) IH SCH (10:10)
--- NOTE | 2017-06-14 10:48 | PN ---
Progress Note (short form) - Note Progress Note: she is concerned about BGM POC being elevated was started on prednisone after recent ICU(with intubation) for severe asthma exacerbation does not want me to call PCP to coordinate care, does not want pcp to know she is in reab. does not recall if she was supposed to be on a taper or take 40mg of prednisone continuously or the hospital she was intubated in. says she has discharge papers at home but has no one to bring them in focused PE: Gen: no acute distress, sitting comfortably in chair CV: s1, s2 without murmurs, sinus rhythm LUNGS: CTAB, no wheezing/crackles EXT: b/l 1+ pitting edema plan decrease prednisone to 30mg due to elevated fingersticks and le edema, consider slow taper while in rehab/controlled setting or atleast to lowest tolerable steroid dose and recommend outpatient pulm evaluation ACBK - increase novolog to 30units from 25units for better basal coverage
[2017-06-14] MEDS ORDERED: INSULIN (NOVOLOG) ASPART 100 UNITS/ML 10ML VIAL ONE ×3 (11:53→21:54)
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
[2017-06-14] MEDS ORDERED: diphenhydrAMINE HCL 25 MG CAPSULE (FP) PO PRN (13:40)
[2017-06-14] MEDS: MAG HYDROX/AL HYDROX/SIMETH 30 ML UNIT-DOSE CUP PO PRN (15:16)
[2017-06-14] MEDS: INSULIN DETEMIR 100 UNITS/ML MDV SQ SCH (21:52)
[2017-06-14] MEDS: ATORVASTATIN CA 40 MG TABLET (FP) PO SCH (21:55)
[2017-06-14] MEDS: THIAMINE HCL 100 MG TABLET (FP) PO SCH (21:55)
[2017-06-14] MEDS: METOPROLOL TARTRATE 25 MG TABLET (FP) PO SCH (21:55)
[2017-06-14] MEDS: MONTELUKAST NA 10 MG TABLET PO SCH (21:55)
[2017-06-14] MEDS: ALBUTEROL SO4 2.5/IPRATROPIUM 0.5 INH SOL 3 ML VIAL.NEB. NEB PRN (23:00)
[2017-06-15] MEDS: INSULIN SLIDING SCALE (NOVOLOG) 1 VIAL SQ SCH ×4 (06:55→22:39)
[2017-06-15] MEDS: INSULIN (NOVOLOG) ASPART 100 UNITS/ML 10ML VIAL SQ SCH (08:18)
[2017-06-15] MEDS ORDERED: predniSONE 10 MG TABLET (UD) PO SCH (10:00)
[2017-06-15] MEDS: LISINOPRIL 20 MG TABLET (FP) PO SCH (10:28)
[2017-06-15] MEDS: APIXABAN 5 MG TABLET PO SCH ×2 (10:28→22:00)
[2017-06-15] MEDS: PRENATAL VITAMINS W/ FOLIC ACID TABLET (FP) PO SCH (10:28)
[2017-06-15] MEDS: ACETAMINOPHEN 325 MG TABLET (FP) PO PRN (10:29)
[2017-06-15] MEDS: BUDESONIDE/FORMETEROL FUMARATE 80/4.5 mcg INHALER IH SCH ×2 (10:29→22:42)
[2017-06-15] MEDS: TIOTROPIUM BROMIDE 18 MCG/INH (DEVICE W/ 5 CAPSULES) IH SCH (10:29)
--- NOTE | 2017-06-15 11:27 | PN ---
[facility] Progress Note (SOAP) Subjective: c/o sore thraot difficulty swallowing no fever rigor or chills, swollen feet, Objective: 06/15/17 11:26 Vital Signs - 8 hr 06/15/17 06/15/17 06/15/17 03:30 07:21 10:00 Temperature 98.4 F Pulse Rate 81 91 H Respiratory 18 18 Rate Blood Pressure 135/78 143/72 Laboratory Tests 06/12/17 06/12/17 06/12/17 12:04 17:17 21:51 POC Glucometer 348 502 468 06/13/17 06/13/17 06/13/17 06:47 11:52 17:03 POC Glucometer 270 282 457 06/13/17 06/14/17 06/14/17 21:43 07:07 11:51 POC Glucometer 419 231 306 06/14/17 06/14/17 06/15/17 16:21 21:51 06:52 POC Glucometer 392 329 237 hyperglycemia Assessment: 06/15/17 11:26 viral pharyngitis, flexeril and MM for pain, t/s for culture, cont decrease of prednisons for better sugar congtrol and to decrease swelling of legs, no wheezing or sob noted.
[2017-06-15] MEDS ORDERED: INSULIN (NOVOLOG) ASPART 100 UNITS/ML 10ML VIAL ONE ×2 (11:57→16:54)
[2017-06-15] MEDS ORDERED: PT OWN MED DRAWER 7, Y5N ONE ×2 (13:19→22:43)
[2017-06-15] MEDS: MAG HYDROX/ALH/SMC/DPHA/LIDO 240 ML MOUTHWASH MM SCH ×2 (13:26→17:25)
[2017-06-15] MEDS: CYCLOBENZAPRINE HCL 10 MG TABLET (FP) PO SCH ×2 (13:26→22:00)
[2017-06-15] MEDS: MONTELUKAST NA 10 MG TABLET PO SCH (22:00)
[2017-06-15] MEDS: ATORVASTATIN CA 40 MG TABLET (FP) PO SCH (22:00)
[2017-06-15] MEDS: METOPROLOL TARTRATE 25 MG TABLET (FP) PO SCH (22:00)
[2017-06-15] MEDS: INSULIN DETEMIR 100 UNITS/ML MDV SQ SCH (22:01)
[2017-06-15] MEDS: diphenhydrAMINE HCL 25 MG CAPSULE (FP) PO PRN (22:03)
[2017-06-15] MEDS: THIAMINE HCL 100 MG TABLET (FP) PO SCH (22:29)
[2017-06-16] MEDS: MAG HYDROX/ALH/SMC/DPHA/LIDO 240 ML MOUTHWASH MM SCH ×5 (01:12→23:26)
[2017-06-16] MEDS ORDERED: INSULIN (NOVOLOG) ASPART 100 UNITS/ML 10ML VIAL ONE ×4 (06:11→22:17)
[2017-06-16] MEDS: CYCLOBENZAPRINE HCL 10 MG TABLET (FP) PO SCH ×3 (06:48→22:02)
[2017-06-16] MEDS: INSULIN (NOVOLOG) ASPART 100 UNITS/ML 10ML VIAL SQ SCH (07:42)
[2017-06-16] MEDS: INSULIN SLIDING SCALE (NOVOLOG) 1 VIAL SQ SCH ×4 (07:42→22:05)
[2017-06-16] MEDS ORDERED: PT OWN MED DRAWER 7, Y5N ONE ×6 (08:54→23:27)
[2017-06-16] MEDS ORDERED: predniSONE 10 MG TABLET (UD) PO SCH (10:00)
[2017-06-16] MEDS: APIXABAN 5 MG TABLET PO SCH ×2 (10:50→22:02)
[2017-06-16] MEDS: PRENATAL VITAMINS W/ FOLIC ACID TABLET (FP) PO SCH (10:50)
[2017-06-16] MEDS: LISINOPRIL 20 MG TABLET (FP) PO SCH (10:50)
[2017-06-16] MEDS: TIOTROPIUM BROMIDE 18 MCG/INH (DEVICE W/ 5 CAPSULES) IH SCH (10:52)
[2017-06-16] MEDS: TETRAHYDROZOLINE HCL 1 DROP DROPS OD PRN (10:53)
[2017-06-16] MEDS: BUDESONIDE/FORMETEROL FUMARATE 80/4.5 mcg INHALER IH SCH ×2 (10:53→22:06)
[2017-06-16] MEDS: VITAMINS A AND D TOPICAL OINTMENT 60 GM TUBE TP PRN (10:54)
--- NOTE | 2017-06-16 11:32 | PN ---
[facility] Progress Note (SOAP) Subjective: c/o trouble swallowing and burning in her mouth feels the magic mouth wash is not helping with the burning Objective: 06/16/17 11:33 GEN: NAD LUNGS: quiet at bases, CTAB, no wheezes HEENT: nct/nt. no sinus tenderness, nares patent, upper palate with thrush lesions, no LAD CV: s1, s2, without murmurs, sinus rhythm Vital Signs Period Temp Pulse Resp BP Sys/Kennedy Pulse Ox Last 24 Hr 98.0 F 78-80 18-18 110-130/69-78 Microbiology - strep throat pending Laboratory Tests 06/13/17 06/13/17 06/14/17 17:03 21:43 07:07 POC Glucometer 457 419 231 06/14/17 06/14/17 06/14/17 11:51 16:21 21:51 POC Glucometer 306 392 329 06/15/17 06/15/17 06/15/17 06:52 11:53 16:51 POC Glucometer 237 216 387 06/15/17 06/16/17 21:59 06:46 POC Glucometer 391 226 Assessment: 06/16/17 11:36 57 yr old woman with HTN, insulin dependent uncontrolled DM, COPD, HLD, hx of Afib admitted for rehabilitation from alcohol c/o mouth pain and burning with swallowing for past few days likely from oral thrush as side effect from prednisone and inhaler use 06/16/17 11:37 Plan: Nystatin swish and swallow q6hr po for 7 days, monitor lesions/orophyarnx for improvement continue magic mouth wash for pain relief prednisone was decreased to 25mg yesterday 06/15, patient tolerating lower dose without exacerbation of symptoms, continue taper as tolerated. was on prednisone 40mg 06/08-06/13, 30mg on 06/14. BGM has improved with lower dose of prednisone and increase in novolog to 30units Active Medications Acetaminophen (Tylenol -) 650 mg PO Q4H PRN PRN Reason: FEVER OR PAIN Last Admin: 06/15/17 10:29 Dose: 650 mg Al Hydroxide/Mg Hydroxide (Mylanta Oral Suspension -) 30 ml PO Q6H PRN PRN Reason: DYSPEPSIA Last Admin: 06/14/17 15:16 Dose: 30 ml Albuterol Sulfate (Ventolin Hfa Inhaler -) 2 puff IH Q4H PRN PRN Reason: ASTHMA Albuterol/Ipratropium (Duoneb -) 1 amp NEB Q4H PRN PRN Reason: SHORTNESS OF BREATH Last Admin: 06/14/17 23:00 Dose: 1 amp Apixaban (Eliquis -) 5 mg PO BID [facility] Last Admin: 06/16/17 10:50 Dose: 5 mg Atorvastatin Calcium (Lipitor -) 40 mg PO HS [facility] Last Admin: 06/15/17 22:00 Dose: 40 mg Budesonide/Formoterol Fumarate (Symbicort 80/4.5mcg -) 2 puff IH BID [facility] Last Admin: 06/16/17 10:53 Dose: 2 inh Cyclobenzaprine HCl (Flexeril -) 10 mg PO TID [facility] Last Admin: 06/16/17 06:48 Dose: 10 mg Diphenhydramine HCl (Benadryl -) 50 mg PO HS PRN PRN Reason: INSOMNIA Last Admin: 06/15/17 22:03 Dose: 50 mg Eucalyptus/Menthol/Phenol/Sorbitol (Cepastat Lozenge -) 1 each MM Q4H PRN PRN Reason: SORE THROAT Guaifenesin (Robitussin Dm -) 10 ml PO Q6H PRN PRN Reason: COUGH Insulin Aspart (Novolog Vial Sliding Scale -) 1 vial SQ ACHS [facility] PRN Reason: Protocol Last Admin: 06/16/17 07:42 Dose: Not Given Insulin Aspart (Novolog Vial) 30 units SQ ACBK [facility] Last Admin: 06/16/17 07:42 Dose: 30 units Insulin Detemir (Levemir Vial) 50 units SQ HS [facility] Last Admin: 06/15/17 22:01 Dose: 50 units Lidocaine/Aluminum/Magnesium/Simeth (Magic Mouthwash *Sjr Formula* -) 5 ml MM Q6HPO [facility] Last Admin: 06/16/17 06:54 Dose: 5 ml Lisinopril (Prinivil) 20 mg PO DAILY [facility] Last Admin: 06/16/17 10:50 Dose: 20 mg Loperamide HCl (Imodium -) 4 mg PO Q6H PRN PRN Reason: DIARRHEA Magnesium Citrate (Citroma -) 300 ml PO Q48H PRN PRN Reason: CONSTIPATION Magnesium Hydroxide (Milk Of Magnesia -) 30 ml PO DAILY PRN PRN Reason: CONSTIPATION Metoprolol Tartrate (Lopressor -) 25 mg PO [facility] Last Admin: 06/15/17 22:00 Dose: 25 mg Montelukast Sodium (Singulair -) 10 mg PO HS [facility] Last Admin: 06/15/17 22:00 Dose: 10 mg Nicotine Polacrilex (Nicorette Gum -) 2 mg BUC Q2H PRN PRN Reason: NICOTINE REPLACEMENT RX Nystatin (Nystatin Oral Suspension -) 500,000 units PO Q6HPO [facility] Prednisone (Deltasone -) 25 mg PO DAILY [facility] Last Admin: 06/16/17 10:51 Dose: 25 mg Multivit/Folic Acid/Iron ( Vitamins (Sjr) -) 1 tab PO DAILY [facility] Last Admin: 06/16/17 10:50 Dose: 1 tab Pseudoephedrine/Triprolidine (Actifed -) 1 combo PO TID PRN PRN Reason: NASAL CONGESTION Tetrahydrozoline HCl (Visine -) 1 drop OD BID PRN PRN Reason: DRY EYES Last Admin: 06/16/17 10:53 Dose: 1 drop Thiamine HCl (Vitamin B1 -) 100 mg PO [facility] Last Admin: 06/15/17 22:29 Dose: 100 mg Tiotropium [place] (Spiriva -) 1 puff IH DAILY [facility] Last Admin: 06/16/17 10:52 Dose: 1 puff Vitamin A/Vitamin D (Vitamin A & D Top Oint -) 1 applic TP Q6H PRN PRN Reason: DRY SKIN Last Admin: 06/16/17 10:54 Dose: 1 applic
[2017-06-16] MEDS: NYSTATIN 500,000 UNITS/5 ML SUSPENSION PO SCH ×3 (12:57→23:27)
--- NOTE | 2017-06-16 13:13 | EKG ---
Test Reason : Blood Pressure : / mmHG Vent. Rate : 087 BPM Atrial Rate : 087 BPM P-R Int : 138 ms QRS Dur : 090 ms QT Int : 342 ms P-R-T Axes : 069 001 083 degrees QTc Int : 411 ms POOR DATA QUALITY, INTERPRETATION MAY BE ADVERSELY AFFECTED SINUS RHYTHM WITH PREMATURE SUPRAVENTRICULAR COMPLEXES OTHERWISE NORMAL ECG WHEN COMPARED WITH ECG OF 11-JUN-2017 07:16, SINUS RHYTHM HAS REPLACED ATRIAL FIBRILLATION Confirmed by HUI TIM MD ([id number]) on 06/16/2017 1:12:58 PM Referred By: Confirmed By:HUI TIM MD
[2017-06-16] MEDS: ACETAMINOPHEN 325 MG TABLET (FP) PO PRN (13:29)
[2017-06-16] MEDS: METOPROLOL TARTRATE 25 MG TABLET (FP) PO SCH (22:02)
[2017-06-16] MEDS: MONTELUKAST NA 10 MG TABLET PO SCH (22:02)
[2017-06-16] MEDS: ATORVASTATIN CA 40 MG TABLET (FP) PO SCH (22:02)
[2017-06-16] MEDS: INSULIN DETEMIR 100 UNITS/ML MDV SQ SCH (22:03)
[2017-06-16] MEDS: THIAMINE HCL 100 MG TABLET (FP) PO SCH (22:06)
[2017-06-16] MEDS: diphenhydrAMINE HCL 25 MG CAPSULE (FP) PO PRN (22:07)
[2017-06-17] MEDS ORDERED: INSULIN (NOVOLOG) ASPART 100 UNITS/ML 10ML VIAL ONE ×3 (05:59→16:57)
[2017-06-17] MEDS ORDERED: PT OWN MED DRAWER 7, Y5N ONE ×6 (06:00→12:09)
[2017-06-17] MEDS: CYCLOBENZAPRINE HCL 10 MG TABLET (FP) PO SCH ×3 (06:37→22:03)
[2017-06-17] MEDS: NYSTATIN 500,000 UNITS/5 ML SUSPENSION PO SCH ×3 (06:38→18:18)
[2017-06-17] MEDS: MAG HYDROX/ALH/SMC/DPHA/LIDO 240 ML MOUTHWASH MM SCH ×4 (06:39→18:16)
[2017-06-17] MEDS: INSULIN (NOVOLOG) ASPART 100 UNITS/ML 10ML VIAL SQ SCH (07:46)
[2017-06-17] MEDS: INSULIN SLIDING SCALE (NOVOLOG) 1 VIAL SQ SCH ×4 (07:47→22:07)
[2017-06-17] MEDS: MENTHOL/PHENOL 1 EACH UD MM PRN (09:34)
[2017-06-17] MEDS: LISINOPRIL 20 MG TABLET (FP) PO SCH (09:35)
[2017-06-17] MEDS: PRENATAL VITAMINS W/ FOLIC ACID TABLET (FP) PO SCH (09:35)
[2017-06-17] MEDS: TIOTROPIUM BROMIDE 18 MCG/INH (DEVICE W/ 5 CAPSULES) IH SCH (09:35)
[2017-06-17] MEDS: APIXABAN 5 MG TABLET PO SCH ×2 (09:35→22:03)
[2017-06-17] MEDS: BUDESONIDE/FORMETEROL FUMARATE 80/4.5 mcg INHALER IH SCH ×2 (09:35→22:04)
[2017-06-17] MEDS ORDERED: predniSONE 10 MG TABLET (UD) PO SCH (10:00)
[2017-06-17] MEDS: VITAMINS A AND D TOPICAL OINTMENT 60 GM TUBE TP PRN (12:05)
[2017-06-17] MEDS ORDERED: ALBUTEROL SO4 0.083% IH SOL 2.5 MG/3 ML VIAL.NEB. NEB PRN (12:11)
--- NOTE | 2017-06-17 12:12 | PN ---
[facility] Progress Note (SOAP) Subjective: says she still feels like she has a sore throat when swallowing concerned about her A1c Objective: focused PE: LUNGS: no wheezing, CTAB HEENT: no rhinorrhea, no tonisular exudates/erythema/swelling, upper palate with thrush Assessment: 57 yr old woman in rehab with thrush, pending results of throat swab, currently ag negative. Plan: prednisone decreased to 15mg daily today from 20mg, continue prednisone taper, patient is tolerating lower dose without exacerbation of COPD continue nystatin pending results of culture and sensitive, consider antibiotics if symptoms continue to persist since pt without leucicytosis/fever/tonsular exudates/ erythema
[2017-06-17] MEDS ORDERED: ALBUTEROL SO4 2.5/IPRATROPIUM 0.5 INH SOL 3 ML VIAL.NEB. NEB PRN (15:52)
[2017-06-17] MEDS: ATORVASTATIN CA 40 MG TABLET (FP) PO SCH (22:03)
[2017-06-17] MEDS: THIAMINE HCL 100 MG TABLET (FP) PO SCH (22:03)
[2017-06-17] MEDS: MONTELUKAST NA 10 MG TABLET PO SCH (22:03)
[2017-06-17] MEDS: METOPROLOL TARTRATE 25 MG TABLET (FP) PO SCH (22:03)
[2017-06-17] MEDS: diphenhydrAMINE HCL 25 MG CAPSULE (FP) PO PRN (22:04)
[2017-06-17] MEDS: INSULIN DETEMIR 100 UNITS/ML MDV SQ SCH (22:07)
[2017-06-18] MEDS: MAG HYDROX/ALH/SMC/DPHA/LIDO 240 ML MOUTHWASH MM SCH ×5 (00:49→23:02)
[2017-06-18] MEDS: NYSTATIN 500,000 UNITS/5 ML SUSPENSION PO SCH ×5 (00:49→23:01)
[2017-06-18] MEDS ORDERED: PT OWN MED DRAWER 7, Y5N ONE ×3 (03:33→22:04)
[2017-06-18] MEDS: CYCLOBENZAPRINE HCL 10 MG TABLET (FP) PO SCH ×3 (06:45→21:48)
[2017-06-18] MEDS: INSULIN (NOVOLOG) ASPART 100 UNITS/ML 10ML VIAL SQ SCH (07:53)
[2017-06-18] MEDS: INSULIN SLIDING SCALE (NOVOLOG) 1 VIAL SQ SCH ×4 (07:53→21:45)
[2017-06-18] MEDS ORDERED: INSULIN (NOVOLOG) ASPART 100 UNITS/ML 10ML VIAL ONE (07:59)
[2017-06-18] MEDS: LISINOPRIL 20 MG TABLET (FP) PO SCH (10:30)
[2017-06-18] MEDS: APIXABAN 5 MG TABLET PO SCH ×2 (10:30→21:48)
[2017-06-18] MEDS: predniSONE 5 MG TABLET (UD) PO SCH (10:30)
[2017-06-18] MEDS: PRENATAL VITAMINS W/ FOLIC ACID TABLET (FP) PO SCH (10:30)
[2017-06-18] MEDS: TIOTROPIUM BROMIDE 18 MCG/INH (DEVICE W/ 5 CAPSULES) IH SCH (10:31)
[2017-06-18] MEDS: BUDESONIDE/FORMETEROL FUMARATE 80/4.5 mcg INHALER IH SCH ×2 (10:31→21:47)
[2017-06-18] MEDS ORDERED: AMOX TR/POT CLAV 875MG/125MG TABLETS (FP) PO ONE (12:45)
--- NOTE | 2017-06-18 13:45 | PN ---
[facility] Progress Note (SOAP) Subjective: Still c/o sore throat Objective: 06/18/17 13:40 Vital Signs - 8 hr 06/18/17 06/18/17 07:27 11:04 Temperature 98.0 F Pulse Rate 74 81 Respiratory 16 18 Rate Blood Pressure 138/62 111/65 Microbiology 06/16/17 09:05 Throat Culture - Final Throat Staphylococcus Aureus Strep Agalactiae Group B Group A Strep Rapid Antigen - Final Assessment: 06/18/17 13:42 Strep throat Plan: Augmentin 875mg bid
[2017-06-18] MEDS: AMOX TR/POT CLAV 875MG/125MG TABLETS (FP) PO SCH (17:09)
[2017-06-18] MEDS: INSULIN DETEMIR 100 UNITS/ML MDV SQ SCH (21:46)
[2017-06-18] MEDS: diphenhydrAMINE HCL 25 MG CAPSULE (FP) PO PRN (21:47)
[2017-06-18] MEDS: THIAMINE HCL 100 MG TABLET (FP) PO SCH (21:47)
[2017-06-18] MEDS: METOPROLOL TARTRATE 25 MG TABLET (FP) PO SCH (21:48)
[2017-06-18] MEDS: MONTELUKAST NA 10 MG TABLET PO SCH (21:48)
[2017-06-18] MEDS: ATORVASTATIN CA 40 MG TABLET (FP) PO SCH (21:48)
[2017-06-19] MEDS: CYCLOBENZAPRINE HCL 10 MG TABLET (FP) PO SCH ×3 (06:48→21:42)
[2017-06-19] MEDS: NYSTATIN 500,000 UNITS/5 ML SUSPENSION PO SCH ×4 (06:48→23:02)
[2017-06-19] MEDS: MAG HYDROX/ALH/SMC/DPHA/LIDO 240 ML MOUTHWASH MM SCH ×4 (06:49→23:02)
[2017-06-19] MEDS ORDERED: PT OWN MED DRAWER 7, Y5N ONE ×4 (07:03→22:05)
[2017-06-19] MEDS: VITAMINS A AND D TOPICAL OINTMENT 60 GM TUBE TP PRN (07:03)
[2017-06-19] MEDS: AMOX TR/POT CLAV 875MG/125MG TABLETS (FP) PO SCH ×2 (07:04→17:11)
[2017-06-19] MEDS: INSULIN (NOVOLOG) ASPART 100 UNITS/ML 10ML VIAL SQ SCH (07:52)
[2017-06-19] MEDS: INSULIN SLIDING SCALE (NOVOLOG) 1 VIAL SQ SCH ×4 (07:52→21:40)
[2017-06-19] MEDS: PRENATAL VITAMINS W/ FOLIC ACID TABLET (FP) PO SCH (10:34)
[2017-06-19] MEDS: APIXABAN 5 MG TABLET PO SCH ×2 (10:34→21:42)
[2017-06-19] MEDS: LISINOPRIL 20 MG TABLET (FP) PO SCH (10:34)
[2017-06-19] MEDS: predniSONE 5 MG TABLET (UD) PO SCH (10:34)
[2017-06-19] MEDS: TIOTROPIUM BROMIDE 18 MCG/INH (DEVICE W/ 5 CAPSULES) IH SCH (10:35)
[2017-06-19] MEDS: BUDESONIDE/FORMETEROL FUMARATE 80/4.5 mcg INHALER IH SCH ×2 (10:35→21:43)
[2017-06-19] MEDS ORDERED: INSULIN (NOVOLOG) ASPART 100 UNITS/ML 10ML VIAL ONE ×2 (11:51→22:03)
[2017-06-19] MEDS: INSULIN DETEMIR 100 UNITS/ML MDV SQ SCH (21:41)
[2017-06-19] MEDS: METOPROLOL TARTRATE 25 MG TABLET (FP) PO SCH (21:42)
[2017-06-19] MEDS: THIAMINE HCL 100 MG TABLET (FP) PO SCH (21:42)
[2017-06-19] MEDS: ATORVASTATIN CA 40 MG TABLET (FP) PO SCH (21:42)
[2017-06-19] MEDS: MONTELUKAST NA 10 MG TABLET PO SCH (21:42)
[2017-06-19] MEDS: diphenhydrAMINE HCL 25 MG CAPSULE (FP) PO PRN (23:04)
[2017-06-20] MEDS: CYCLOBENZAPRINE HCL 10 MG TABLET (FP) PO SCH ×3 (06:41→22:01)
[2017-06-20] MEDS: MAG HYDROX/ALH/SMC/DPHA/LIDO 240 ML MOUTHWASH MM SCH ×4 (06:43→23:54)
[2017-06-20] MEDS: NYSTATIN 500,000 UNITS/5 ML SUSPENSION PO SCH ×4 (06:43→23:54)
[2017-06-20] MEDS: AMOX TR/POT CLAV 875MG/125MG TABLETS (FP) PO SCH ×2 (07:00→16:55)
[2017-06-20] MEDS: INSULIN SLIDING SCALE (NOVOLOG) 1 VIAL SQ SCH ×4 (08:07→21:57)
[2017-06-20] MEDS: INSULIN (NOVOLOG) ASPART 100 UNITS/ML 10ML VIAL SQ SCH (08:07)
[2017-06-20] MEDS ORDERED: INSULIN (NOVOLOG) ASPART 100 UNITS/ML 10ML VIAL ONE ×2 (08:29→23:46)
[2017-06-20] MEDS ORDERED: PT OWN MED DRAWER 7, Y5N ONE ×4 (08:36→21:52)
[2017-06-20] MEDS: PRENATAL VITAMINS W/ FOLIC ACID TABLET (FP) PO SCH (10:36)
[2017-06-20] MEDS: LISINOPRIL 20 MG TABLET (FP) PO SCH (10:36)
[2017-06-20] MEDS: TIOTROPIUM BROMIDE 18 MCG/INH (DEVICE W/ 5 CAPSULES) IH SCH (10:36)
[2017-06-20] MEDS: BUDESONIDE/FORMETEROL FUMARATE 80/4.5 mcg INHALER IH SCH ×2 (10:36→21:58)
[2017-06-20] MEDS: VITAMINS A AND D TOPICAL OINTMENT 60 GM TUBE TP PRN (10:37)
[2017-06-20] MEDS: predniSONE 5 MG TABLET (UD) PO SCH (10:37)
[2017-06-20] MEDS: APIXABAN 5 MG TABLET PO SCH ×2 (10:37→22:01)
[2017-06-20] MEDS: METOPROLOL TARTRATE 25 MG TABLET (FP) PO SCH (21:55)
[2017-06-20] MEDS: ATORVASTATIN CA 40 MG TABLET (FP) PO SCH (21:55)
[2017-06-20] MEDS: MONTELUKAST NA 10 MG TABLET PO SCH (21:55)
[2017-06-20] MEDS: INSULIN DETEMIR 100 UNITS/ML MDV SQ SCH (21:56)
[2017-06-20] MEDS: THIAMINE HCL 100 MG TABLET (FP) PO SCH (21:59)
[2017-06-20] MEDS: diphenhydrAMINE HCL 25 MG CAPSULE (FP) PO PRN (22:02)
[2017-06-21] MEDS ORDERED: PT OWN MED DRAWER 7, Y5N ONE ×5 (00:17→11:44)
[2017-06-21] MEDS: CYCLOBENZAPRINE HCL 10 MG TABLET (FP) PO SCH ×3 (06:55→21:50)
[2017-06-21] MEDS: NYSTATIN 500,000 UNITS/5 ML SUSPENSION PO SCH ×3 (06:55→17:09)
[2017-06-21] MEDS: MAG HYDROX/ALH/SMC/DPHA/LIDO 240 ML MOUTHWASH MM SCH ×3 (06:55→17:07)
[2017-06-21] MEDS: INSULIN SLIDING SCALE (NOVOLOG) 1 VIAL SQ SCH ×4 (07:48→21:53)
[2017-06-21] MEDS: AMOX TR/POT CLAV 875MG/125MG TABLETS (FP) PO SCH ×2 (07:49→17:05)
[2017-06-21] MEDS: INSULIN (NOVOLOG) ASPART 100 UNITS/ML 10ML VIAL SQ SCH (07:49)
[2017-06-21] MEDS ORDERED: INSULIN (NOVOLOG) ASPART 100 UNITS/ML 10ML VIAL ONE ×2 (07:52→23:05)
[2017-06-21] MEDS: APIXABAN 5 MG TABLET PO SCH ×2 (10:27→21:50)
[2017-06-21] MEDS: LISINOPRIL 20 MG TABLET (FP) PO SCH (10:27)
[2017-06-21] MEDS: TIOTROPIUM BROMIDE 18 MCG/INH (DEVICE W/ 5 CAPSULES) IH SCH (10:27)
[2017-06-21] MEDS: PRENATAL VITAMINS W/ FOLIC ACID TABLET (FP) PO SCH (10:27)
[2017-06-21] MEDS: BUDESONIDE/FORMETEROL FUMARATE 80/4.5 mcg INHALER IH SCH ×2 (10:28→21:54)
[2017-06-21] MEDS: predniSONE 5 MG TABLET (UD) PO SCH (10:28)
[2017-06-21] MEDS: VITAMINS A AND D TOPICAL OINTMENT 60 GM TUBE TP PRN (10:29)
[2017-06-21] MEDS ORDERED: ALBUTEROL SO4 0.083% IH SOL 2.5 MG/3 ML VIAL.NEB. NEB PRN (15:44)
--- NOTE | 2017-06-21 16:40 | PN ---
[facility] Progress Note (SOAP) Subjective: Patient c/o internal vaginal itch after using hospital soap. As per patient, she believes she got a vaginal infection. Patient is requesting vaginal cream Objective: 06/21/17 16:40 Last Vital Signs Temp Pulse Resp BP Pulse Ox 97.8 F 93 H 18 134/73 06/21/17 07:29 06/21/17 10:00 06/21/17 07:29 06/21/17 10:00 Laboratory Tests 06/12/17 06/12/17 06/12/17 12:04 17:17 21:51 POC Glucometer 348 502 468 06/13/17 06/13/17 06/13/17 06:47 11:52 17:03 POC Glucometer 270 282 457 06/13/17 06/14/17 06/14/17 21:43 07:07 11:51 POC Glucometer 419 231 306 06/14/17 06/14/17 06/15/17 16:21 21:51 06:52 POC Glucometer 392 329 237 06/15/17 06/15/17 06/15/17 11:53 16:51 21:59 POC Glucometer 216 387 391 06/16/17 06/16/17 06/16/17 06:46 11:49 17:14 POC Glucometer 226 192 413 06/16/17 06/17/17 06/17/17 22:02 06:35 11:58 POC Glucometer 393 186 209 06/17/17 06/17/17 06/18/17 16:54 21:03 06:43 POC Glucometer 389 406 212 06/18/17 06/18/17 06/18/17 11:48 17:08 21:44 POC Glucometer 132 352 353 06/19/17 06/19/17 06/19/17 06:46 11:49 17:11 POC Glucometer 177 223 434 06/19/17 06/20/17 06/20/17 21:40 06:41 12:02 POC Glucometer 341 263 150 06/20/17 06/20/17 06/21/17 16:53 21:55 06:54 POC Glucometer 371 313 196 06/21/17 11:42 POC Glucometer 116 Labs noted/POC glucose monitor noted Assessment: 06/21/17 16:41 Patient with vaginal candidiasis Plan: Vaginal candidiasis: clotrimazole vaginal cream, 1 applicator intravaginally qhs x 3 nights, aveeno soap ordered to take bath
[2017-06-21] MEDS: COLLOIDAL OATMEAL 1 BAR EACH TP PRN (17:05)
[2017-06-21] MEDS: METOPROLOL TARTRATE 25 MG TABLET (FP) PO SCH (21:50)
[2017-06-21] MEDS: THIAMINE HCL 100 MG TABLET (FP) PO SCH (21:50)
[2017-06-21] MEDS: MONTELUKAST NA 10 MG TABLET PO SCH (21:50)
[2017-06-21] MEDS: ATORVASTATIN CA 40 MG TABLET (FP) PO SCH (21:50)
[2017-06-21] MEDS: CLOTRIMAZOLE 1% VAGINAL CREAM WITH APPLICATOR 45 GM TUBE VG SCH (21:50)
[2017-06-21] MEDS: INSULIN DETEMIR 100 UNITS/ML MDV SQ SCH (21:51)
[2017-06-21] MEDS ORDERED: INSULIN DETEMIR 100 UNITS/ML MDV SQ ONE (23:05)
[2017-06-22] MEDS: NYSTATIN 500,000 UNITS/5 ML SUSPENSION PO SCH ×4 (00:15→17:04)
[2017-06-22] MEDS: MAG HYDROX/ALH/SMC/DPHA/LIDO 240 ML MOUTHWASH MM SCH ×4 (00:15→17:04)
[2017-06-22] MEDS ORDERED: PT OWN MED DRAWER 7, Y5N ONE ×5 (05:55→22:50)
[2017-06-22] MEDS ORDERED: INSULIN (NOVOLOG) ASPART 100 UNITS/ML 10ML VIAL ONE ×4 (05:57→22:51)
[2017-06-22] MEDS: CYCLOBENZAPRINE HCL 10 MG TABLET (FP) PO SCH ×3 (06:48→21:40)
[2017-06-22] MEDS: AMOX TR/POT CLAV 875MG/125MG TABLETS (FP) PO SCH ×2 (07:17→17:03)
[2017-06-22] MEDS: INSULIN SLIDING SCALE (NOVOLOG) 1 VIAL SQ SCH ×4 (08:02→21:44)
[2017-06-22] MEDS: INSULIN (NOVOLOG) ASPART 100 UNITS/ML 10ML VIAL SQ SCH (08:03)
[2017-06-22] MEDS: predniSONE 5 MG TABLET (UD) PO SCH (10:34)
[2017-06-22] MEDS: TIOTROPIUM BROMIDE 18 MCG/INH (DEVICE W/ 5 CAPSULES) IH SCH (10:35)
[2017-06-22] MEDS: APIXABAN 5 MG TABLET PO SCH ×2 (10:35→21:40)
[2017-06-22] MEDS: PRENATAL VITAMINS W/ FOLIC ACID TABLET (FP) PO SCH (10:36)
[2017-06-22] MEDS: BUDESONIDE/FORMETEROL FUMARATE 80/4.5 mcg INHALER IH SCH ×2 (10:36→21:45)
[2017-06-22] MEDS: LISINOPRIL 20 MG TABLET (FP) PO SCH (10:36)
[2017-06-22] MEDS: THIAMINE HCL 100 MG TABLET (FP) PO SCH (21:40)
[2017-06-22] MEDS: METOPROLOL TARTRATE 25 MG TABLET (FP) PO SCH (21:40)
[2017-06-22] MEDS: ATORVASTATIN CA 40 MG TABLET (FP) PO SCH (21:40)
[2017-06-22] MEDS: MONTELUKAST NA 10 MG TABLET PO SCH (21:40)
[2017-06-22] MEDS: CLOTRIMAZOLE 1% VAGINAL CREAM WITH APPLICATOR 45 GM TUBE VG SCH (21:43)
[2017-06-22] MEDS: INSULIN DETEMIR 100 UNITS/ML MDV SQ SCH (21:44)
[2017-06-23] MEDS: NYSTATIN 500,000 UNITS/5 ML SUSPENSION PO SCH ×4 (00:57→17:11)
[2017-06-23] MEDS: MAG HYDROX/ALH/SMC/DPHA/LIDO 240 ML MOUTHWASH MM SCH ×4 (00:57→17:10)
[2017-06-23] MEDS: CYCLOBENZAPRINE HCL 10 MG TABLET (FP) PO SCH ×3 (06:30→21:38)
[2017-06-23] MEDS: VITAMINS A AND D TOPICAL OINTMENT 60 GM TUBE TP PRN (06:30)
[2017-06-23] MEDS: INSULIN (NOVOLOG) ASPART 100 UNITS/ML 10ML VIAL SQ SCH (07:48)
[2017-06-23] MEDS: INSULIN SLIDING SCALE (NOVOLOG) 1 VIAL SQ SCH ×4 (07:48→21:42)
[2017-06-23] MEDS: AMOX TR/POT CLAV 875MG/125MG TABLETS (FP) PO SCH ×2 (07:48→17:09)
[2017-06-23] MEDS ORDERED: INSULIN (NOVOLOG) ASPART 100 UNITS/ML 10ML VIAL ONE ×3 (07:54→22:51)
[2017-06-23] MEDS ORDERED: PT OWN MED DRAWER 7, Y5N ONE ×2 (07:54→11:50)
[2017-06-23] MEDS: PRENATAL VITAMINS W/ FOLIC ACID TABLET (FP) PO SCH (10:20)
[2017-06-23] MEDS: BUDESONIDE/FORMETEROL FUMARATE 80/4.5 mcg INHALER IH SCH ×2 (10:20→21:42)
[2017-06-23] MEDS: predniSONE 5 MG TABLET (UD) PO SCH (10:20)
[2017-06-23] MEDS: APIXABAN 5 MG TABLET PO SCH ×2 (10:20→21:38)
[2017-06-23] MEDS: LISINOPRIL 20 MG TABLET (FP) PO SCH (10:21)
[2017-06-23] MEDS: TIOTROPIUM BROMIDE 18 MCG/INH (DEVICE W/ 5 CAPSULES) IH SCH (10:21)
--- NOTE | 2017-06-23 15:53 | PN ---
S Progress Note (SOAP) Subjective: Patient seen for c/o sweating too much at night. As per patient, the room temperature during the night is comfortable and she has been sweating at night since her admission. She reported taking prednisone 60mg daily after intubated x 1 week at [facility] for acute asthma exacerbation last month. Patient has been tapered off prednisone and is presently on 15mg daily. Patient made aware that prednisone can cause diaphoresis. She reports being intubated twice with first intubation over 12 years ago. She presently denies sob or chest pain but reports that her throat feels sore and that she was dx with strep throat and presently on antibiotic. Patient agrees to complete prednisone taper as ordered. Objective: 06/23/17 15:53 Last Vital Signs Temp Pulse Resp BP Pulse Ox 98.0 F 89 18 104/66 06/23/17 07:34 06/23/17 09:25 06/23/17 07:34 06/23/17 09:25 Laboratory Tests 06/12/17 06/12/17 06/12/17 12:04 17:17 21:51 POC Glucometer 348 502 468 06/13/17 06/13/17 06/13/17 06:47 11:52 17:03 POC Glucometer 270 282 457 06/13/17 06/14/17 06/14/17 21:43 07:07 11:51 POC Glucometer 419 231 306 06/14/17 06/14/17 06/15/17 16:21 21:51 06:52 POC Glucometer 392 329 237 06/15/17 06/15/17 06/15/17 11:53 16:51 21:59 POC Glucometer 216 387 391 06/16/17 06/16/17 06/16/17 06:46 11:49 17:14 POC Glucometer 226 192 413 06/16/17 06/17/17 06/17/17 22:02 06:35 11:58 POC Glucometer 393 186 209 06/17/17 06/17/17 06/18/17 16:54 21:03 06:43 POC Glucometer 389 406 212 06/18/17 06/18/17 06/18/17 11:48 17:08 21:44 POC Glucometer 132 352 353 12/31/17 12/31/17 12/31/17 06:46 11:49 17:11 POC Glucometer 177 223 434 06/19/17 06/20/17 06/20/17 21:40 06:41 12:02 POC Glucometer 341 263 150 06/20/17 06/20/17 06/21/17 16:53 21:55 06:54 POC Glucometer 371 313 196 06/21/17 06/21/17 06/21/17 11:42 17:07 21:52 POC Glucometer 116 408 358 06/22/17 06/22/17 06/22/17 06:47 11:49 17:03 POC Glucometer 233 255 314 06/22/17 06/23/17 06/23/17 21:43 06:29 11:43 POC Glucometer 460 166 238 Labs noted PE: Face: small bubbles of sweats noted around forehead/lateral side of face Mouth: moist mucous membrane, no pharyngeal erythema or exudates noted Assessment: 06/23/17 15:55 Patient seen for c/o diaphoresis and for f/u on acute asthma exacerbation Plan: Diaphoresis most likely secondary to prednisone: prednisone tapered (10mg starting tomorrow x 2 days then 5mg x 2 days then 5 mg once, see border measurer), encouraged to drink lots of water Acute asthma exacerbation: improved, continue antibiotic and prednisone taper, continue to monitor
[2017-06-23] MEDS: THIAMINE HCL 100 MG TABLET (FP) PO SCH (21:38)
[2017-06-23] MEDS: METOPROLOL TARTRATE 25 MG TABLET (FP) PO SCH (21:38)
[2017-06-23] MEDS: ATORVASTATIN CA 40 MG TABLET (FP) PO SCH (21:38)
[2017-06-23] MEDS: MONTELUKAST NA 10 MG TABLET PO SCH (21:38)
[2017-06-23] MEDS: CLOTRIMAZOLE 1% VAGINAL CREAM WITH APPLICATOR 45 GM TUBE VG SCH (21:40)
[2017-06-23] MEDS: INSULIN DETEMIR 100 UNITS/ML MDV SQ SCH (21:41)
[2017-06-23] MEDS ORDERED: INSULIN DETEMIR 100 UNITS/ML MDV SQ ONE (22:51)
[2017-06-24] MEDS: MAG HYDROX/ALH/SMC/DPHA/LIDO 240 ML MOUTHWASH MM SCH ×4 (00:14→17:27)
[2017-06-24] MEDS: NYSTATIN 500,000 UNITS/5 ML SUSPENSION PO SCH ×4 (00:14→17:05)
[2017-06-24] MEDS: CYCLOBENZAPRINE HCL 10 MG TABLET (FP) PO SCH ×3 (06:46→21:56)
[2017-06-24] MEDS ORDERED: PT OWN MED DRAWER 7, Y5N ONE ×3 (07:52→20:07)
[2017-06-24] MEDS: AMOX TR/POT CLAV 875MG/125MG TABLETS (FP) PO SCH ×2 (07:52→17:05)
[2017-06-24] MEDS: VITAMINS A AND D TOPICAL OINTMENT 60 GM TUBE TP PRN (07:52)
[2017-06-24] MEDS: INSULIN (NOVOLOG) ASPART 100 UNITS/ML 10ML VIAL SQ SCH (07:53)
[2017-06-24] MEDS: INSULIN SLIDING SCALE (NOVOLOG) 1 VIAL SQ SCH ×4 (07:53→21:57)
[2017-06-24] MEDS ORDERED: INSULIN (NOVOLOG) ASPART 100 UNITS/ML 10ML VIAL ONE ×3 (08:00→16:58)
[2017-06-24] MEDS: PRENATAL VITAMINS W/ FOLIC ACID TABLET (FP) PO SCH (10:36)
[2017-06-24] MEDS: APIXABAN 5 MG TABLET PO SCH ×2 (10:36→21:56)
[2017-06-24] MEDS: LISINOPRIL 20 MG TABLET (FP) PO SCH (10:36)
[2017-06-24] MEDS: TIOTROPIUM BROMIDE 18 MCG/INH (DEVICE W/ 5 CAPSULES) IH SCH (10:37)
[2017-06-24] MEDS: predniSONE 10 MG TABLET (UD) PO SCH (10:37)
[2017-06-24] MEDS: BUDESONIDE/FORMETEROL FUMARATE 80/4.5 mcg INHALER IH SCH ×2 (10:37→21:55)
[2017-06-24] MEDS: ACETAMINOPHEN 325 MG TABLET (FP) PO PRN (11:49)
[2017-06-24] MEDS: COLLOIDAL OATMEAL 1 BAR EACH TP PRN (21:52)
[2017-06-24] MEDS: CLOTRIMAZOLE 1% VAGINAL CREAM WITH APPLICATOR 45 GM TUBE VG SCH (21:55)
[2017-06-24] MEDS: ATORVASTATIN CA 40 MG TABLET (FP) PO SCH (21:56)
[2017-06-24] MEDS: METOPROLOL TARTRATE 25 MG TABLET (FP) PO SCH (21:56)
[2017-06-24] MEDS: MONTELUKAST NA 10 MG TABLET PO SCH (21:56)
[2017-06-24] MEDS: INSULIN DETEMIR 100 UNITS/ML MDV SQ SCH (21:56)
[2017-06-24] MEDS: THIAMINE HCL 100 MG TABLET (FP) PO SCH (21:56)
[2017-06-25] MEDS: NYSTATIN 500,000 UNITS/5 ML SUSPENSION PO SCH ×4 (00:32→17:13)
[2017-06-25] MEDS: MAG HYDROX/ALH/SMC/DPHA/LIDO 240 ML MOUTHWASH MM SCH ×4 (00:32→17:10)
[2017-06-25] MEDS: CYCLOBENZAPRINE HCL 10 MG TABLET (FP) PO SCH ×3 (06:53→21:51)
[2017-06-25] MEDS: AMOX TR/POT CLAV 875MG/125MG TABLETS (FP) PO SCH (07:07)
[2017-06-25] MEDS: INSULIN SLIDING SCALE (NOVOLOG) 1 VIAL SQ SCH ×4 (07:48→21:54)
[2017-06-25] MEDS: INSULIN (NOVOLOG) ASPART 100 UNITS/ML 10ML VIAL SQ SCH (07:48)
[2017-06-25] MEDS ORDERED: INSULIN (NOVOLOG) ASPART 100 UNITS/ML 10ML VIAL ONE ×3 (07:56→16:59)
[2017-06-25] MEDS ORDERED: PT OWN MED DRAWER 7, Y5N ONE ×2 (09:15→11:52)
[2017-06-25] MEDS: TIOTROPIUM BROMIDE 18 MCG/INH (DEVICE W/ 5 CAPSULES) IH SCH (10:28)
[2017-06-25] MEDS: BUDESONIDE/FORMETEROL FUMARATE 80/4.5 mcg INHALER IH SCH ×2 (10:28→21:56)
[2017-06-25] MEDS: predniSONE 10 MG TABLET (UD) PO SCH (10:29)
[2017-06-25] MEDS: LISINOPRIL 20 MG TABLET (FP) PO SCH (10:29)
[2017-06-25] MEDS: APIXABAN 5 MG TABLET PO SCH ×2 (10:29→21:51)
[2017-06-25] MEDS: VITAMINS A AND D TOPICAL OINTMENT 60 GM TUBE TP PRN (10:29)
[2017-06-25] MEDS: PRENATAL VITAMINS W/ FOLIC ACID TABLET (FP) PO SCH (10:29)
[2017-06-25] MEDS: TETRAHYDROZOLINE HCL 1 DROP DROPS OD PRN (10:30)
[2017-06-25] MEDS: MONTELUKAST NA 10 MG TABLET PO SCH (21:51)
[2017-06-25] MEDS: ATORVASTATIN CA 40 MG TABLET (FP) PO SCH (21:51)
[2017-06-25] MEDS: THIAMINE HCL 100 MG TABLET (FP) PO SCH (21:51)
[2017-06-25] MEDS: METOPROLOL TARTRATE 25 MG TABLET (FP) PO SCH (21:51)
[2017-06-25] MEDS: INSULIN DETEMIR 100 UNITS/ML MDV SQ SCH (21:53)
[2017-06-25] MEDS: CLOTRIMAZOLE 1% VAGINAL CREAM WITH APPLICATOR 45 GM TUBE VG SCH (21:53)
[2017-06-26] MEDS: NYSTATIN 500,000 UNITS/5 ML SUSPENSION PO SCH ×4 (00:15→17:13)
[2017-06-26] MEDS: MAG HYDROX/ALH/SMC/DPHA/LIDO 240 ML MOUTHWASH MM SCH ×4 (00:15→17:12)
[2017-06-26] MEDS: CYCLOBENZAPRINE HCL 10 MG TABLET (FP) PO SCH ×3 (06:32→21:37)
[2017-06-26] MEDS: INSULIN (NOVOLOG) ASPART 100 UNITS/ML 10ML VIAL SQ SCH (07:58)
[2017-06-26] MEDS: INSULIN SLIDING SCALE (NOVOLOG) 1 VIAL SQ SCH ×4 (08:01→21:49)
[2017-06-26] MEDS ORDERED: INSULIN (NOVOLOG) ASPART 100 UNITS/ML 10ML VIAL ONE ×4 (08:05→22:20)
[2017-06-26] MEDS ORDERED: PT OWN MED DRAWER 7, Y5N ONE ×3 (08:43→15:32)
[2017-06-26] MEDS: APIXABAN 5 MG TABLET PO SCH ×2 (10:09→21:37)
[2017-06-26] MEDS: LISINOPRIL 20 MG TABLET (FP) PO SCH (10:09)
[2017-06-26] MEDS: PRENATAL VITAMINS W/ FOLIC ACID TABLET (FP) PO SCH (10:09)
[2017-06-26] MEDS: predniSONE 5 MG TABLET (UD) PO SCH (10:09)
[2017-06-26] MEDS: BUDESONIDE/FORMETEROL FUMARATE 80/4.5 mcg INHALER IH SCH ×2 (10:10→21:38)
[2017-06-26] MEDS: VITAMINS A AND D TOPICAL OINTMENT 60 GM TUBE TP PRN (10:10)
[2017-06-26] MEDS: TETRAHYDROZOLINE HCL 1 DROP DROPS OD PRN (10:10)
[2017-06-26] MEDS: TIOTROPIUM BROMIDE 18 MCG/INH (DEVICE W/ 5 CAPSULES) IH SCH (10:12)
[2017-06-26] MEDS: ALBUTEROL SO4 0.083% IH SOL 2.5 MG/3 ML VIAL.NEB. NEB PRN (15:09)
[2017-06-26] MEDS: ACETAMINOPHEN 325 MG TABLET (FP) PO PRN (15:10)
[2017-06-26] MEDS: CLOTRIMAZOLE 1% VAGINAL CREAM WITH APPLICATOR 45 GM TUBE VG SCH (21:37)
[2017-06-26] MEDS: THIAMINE HCL 100 MG TABLET (FP) PO SCH (21:37)
[2017-06-26] MEDS: MONTELUKAST NA 10 MG TABLET PO SCH (21:37)
[2017-06-26] MEDS: ATORVASTATIN CA 40 MG TABLET (FP) PO SCH (21:37)
[2017-06-26] MEDS: METOPROLOL TARTRATE 25 MG TABLET (FP) PO SCH (21:38)
[2017-06-26] MEDS: INSULIN DETEMIR 100 UNITS/ML MDV SQ SCH (21:41)
[2017-06-27] MEDS: MAG HYDROX/ALH/SMC/DPHA/LIDO 240 ML MOUTHWASH MM SCH ×4 (00:15→17:19)
[2017-06-27] MEDS: NYSTATIN 500,000 UNITS/5 ML SUSPENSION PO SCH ×4 (00:15→17:22)
[2017-06-27] MEDS: CYCLOBENZAPRINE HCL 10 MG TABLET (FP) PO SCH ×3 (06:13→21:48)
[2017-06-27] MEDS: INSULIN SLIDING SCALE (NOVOLOG) 1 VIAL SQ SCH ×4 (08:04→21:50)
[2017-06-27] MEDS: INSULIN (NOVOLOG) ASPART 100 UNITS/ML 10ML VIAL SQ SCH (08:04)
[2017-06-27] MEDS ORDERED: INSULIN (NOVOLOG) ASPART 100 UNITS/ML 10ML VIAL ONE ×3 (08:06→23:15)
[2017-06-27] MEDS ORDERED: PT OWN MED DRAWER 7, Y5N ONE (08:47)
[2017-06-27] MEDS: predniSONE 5 MG TABLET (UD) PO SCH (10:33)
[2017-06-27] MEDS: PRENATAL VITAMINS W/ FOLIC ACID TABLET (FP) PO SCH (10:34)
[2017-06-27] MEDS: BUDESONIDE/FORMETEROL FUMARATE 80/4.5 mcg INHALER IH SCH ×2 (10:34→21:35)
[2017-06-27] MEDS: APIXABAN 5 MG TABLET PO SCH ×2 (10:34→21:48)
[2017-06-27] MEDS: LISINOPRIL 20 MG TABLET (FP) PO SCH (10:34)
[2017-06-27] MEDS: TIOTROPIUM BROMIDE 18 MCG/INH (DEVICE W/ 5 CAPSULES) IH SCH (10:34)
--- NOTE | 2017-06-27 13:42 | PN ---
[facility] Progress Note (SOAP) Subjective: repeated episodes of wheezing on decreased prednisone, still has urti, would like to go back up on prednisone Objective: 06/27/17 13:41 Vital Signs - 8 hr 06/27/17 06/27/17 06:49 09:05 Temperature 97.8 F Pulse Rate 88 98 H Respiratory 18 Rate Blood Pressure 118/75 152/81 Laboratory Tests 06/12/17 06/12/17 06/12/17 12:04 17:17 21:51 POC Glucometer 348 502 468 06/13/17 06/13/17 06/13/17 06:47 11:52 17:03 POC Glucometer 270 282 457 06/13/17 06/14/17 06/14/17 21:43 07:07 11:51 POC Glucometer 419 231 306 06/14/17 06/14/17 06/15/17 16:21 21:51 06:52 POC Glucometer 392 329 237 06/15/17 06/15/17 06/15/17 11:53 16:51 21:59 POC Glucometer 216 387 391 06/16/17 06/16/17 06/16/17 06:46 11:49 17:14 POC Glucometer 226 192 413 06/16/17 06/17/17 06/17/17 22:02 06:35 11:58 POC Glucometer 393 186 209 06/17/17 06/17/17 06/18/17 16:54 21:03 06:43 POC Glucometer 389 406 212 06/18/17 06/18/17 06/18/17 11:48 17:08 21:44 POC Glucometer 132 352 353 06/19/17 06/19/17 06/19/17 06:46 11:49 17:11 POC Glucometer 177 223 434 06/19/17 06/20/17 06/20/17 21:40 06:41 12:02 POC Glucometer 341 263 150 06/20/17 06/20/17 06/21/17 16:53 21:55 06:54 POC Glucometer 371 313 196 06/21/17 06/21/17 06/21/17 11:42 17:07 21:52 POC Glucometer 116 408 358 06/22/17 06/22/17 06/22/17 06:47 11:49 17:03 POC Glucometer 233 255 314 06/22/17 06/23/17 06/23/17 21:43 06:29 11:43 POC Glucometer 460 166 238 06/23/17 06/23/17 06/24/17 17:09 21:39 06:46 POC Glucometer 438 365 238 06/24/17 06/24/17 06/24/17 11:46 16:56 21:54 POC Glucometer 209 336 324 06/25/17 06/25/17 06/25/17 06:52 11:46 17:10 POC Glucometer 247 294 433 06/25/17 06/26/17 06/26/17 21:53 07:10 11:56 POC Glucometer 341 181 237 06/26/17 06/26/17 06/27/17 17:11 21:49 06:45 POC Glucometer 404 359 262 06/27/17 11:46 POC Glucometer 154 glucose control much improved , no wheezing Assessment: 06/27/17 13:42 increase prednisone to 10mg daily, cont gargle. , glucose control much imporved.
[2017-06-27] MEDS: predniSONE 10 MG TABLET (UD) PO SCH (17:19)
[2017-06-27] MEDS: THIAMINE HCL 100 MG TABLET (FP) PO SCH (21:48)
[2017-06-27] MEDS: METOPROLOL TARTRATE 25 MG TABLET (FP) PO SCH (21:48)
[2017-06-27] MEDS: ATORVASTATIN CA 40 MG TABLET (FP) PO SCH (21:48)
[2017-06-27] MEDS: MONTELUKAST NA 10 MG TABLET PO SCH (21:48)
[2017-06-27] MEDS: INSULIN DETEMIR 100 UNITS/ML MDV SQ SCH (21:50)
[2017-06-27] MEDS: CLOTRIMAZOLE 1% VAGINAL CREAM WITH APPLICATOR 45 GM TUBE VG SCH (21:50)
[2017-06-27] MEDS: diphenhydrAMINE HCL 25 MG CAPSULE (FP) PO PRN (22:32)
[2017-06-27] MEDS ORDERED: INSULIN DETEMIR 100 UNITS/ML MDV SQ ONE (23:16)
[2017-06-28] MEDS: MAG HYDROX/ALH/SMC/DPHA/LIDO 240 ML MOUTHWASH MM SCH ×5 (01:01→23:51)
[2017-06-28] MEDS: NYSTATIN 500,000 UNITS/5 ML SUSPENSION PO SCH ×5 (01:02→23:51)
[2017-06-28] MEDS: CYCLOBENZAPRINE HCL 10 MG TABLET (FP) PO SCH ×3 (06:29→21:41)
[2017-06-28] MEDS ORDERED: PT OWN MED DRAWER 7, Y5N ONE ×3 (06:42→23:48)
[2017-06-28] MEDS: INSULIN SLIDING SCALE (NOVOLOG) 1 VIAL SQ SCH ×4 (07:54→21:43)
[2017-06-28] MEDS: INSULIN (NOVOLOG) ASPART 100 UNITS/ML 10ML VIAL SQ SCH (07:55)
[2017-06-28] MEDS ORDERED: INSULIN (NOVOLOG) ASPART 100 UNITS/ML 10ML VIAL ONE ×3 (07:59→16:58)
[2017-06-28] MEDS: ALBUTEROL SO4 0.083% IH SOL 2.5 MG/3 ML VIAL.NEB. NEB PRN (09:22)
[2017-06-28] MEDS: PRENATAL VITAMINS W/ FOLIC ACID TABLET (FP) PO SCH (09:33)
[2017-06-28] MEDS: predniSONE 10 MG TABLET (UD) PO SCH ×2 (09:33→12:29)
[2017-06-28] MEDS: APIXABAN 5 MG TABLET PO SCH ×2 (09:33→21:41)
[2017-06-28] MEDS: BUDESONIDE/FORMETEROL FUMARATE 80/4.5 mcg INHALER IH SCH ×2 (09:34→21:41)
[2017-06-28] MEDS: TIOTROPIUM BROMIDE 18 MCG/INH (DEVICE W/ 5 CAPSULES) IH SCH (09:34)
[2017-06-28] MEDS: LISINOPRIL 20 MG TABLET (FP) PO SCH (09:34)
[2017-06-28] MEDS: MENTHOL/PHENOL 1 EACH UD MM PRN (09:59)
[2017-06-28] MEDS ORDERED: predniSONE 5 MG TABLET (UD) PO ONE (10:00)
[2017-06-28] MEDS: METOPROLOL TARTRATE 25 MG TABLET (FP) PO SCH (21:41)
[2017-06-28] MEDS: THIAMINE HCL 100 MG TABLET (FP) PO SCH (21:41)
[2017-06-28] MEDS: ATORVASTATIN CA 40 MG TABLET (FP) PO SCH (21:41)
[2017-06-28] MEDS: MONTELUKAST NA 10 MG TABLET PO SCH (21:41)
[2017-06-28] MEDS: INSULIN DETEMIR 100 UNITS/ML MDV SQ SCH (21:42)
[2017-06-29] MEDS: CYCLOBENZAPRINE HCL 10 MG TABLET (FP) PO SCH ×3 (06:34→21:41)
[2017-06-29] MEDS: NYSTATIN 500,000 UNITS/5 ML SUSPENSION PO SCH ×3 (06:35→17:00)
[2017-06-29] MEDS: MAG HYDROX/ALH/SMC/DPHA/LIDO 240 ML MOUTHWASH MM SCH ×3 (06:35→17:00)
[2017-06-29] MEDS: INSULIN SLIDING SCALE (NOVOLOG) 1 VIAL SQ SCH ×4 (08:02→21:46)
[2017-06-29] MEDS: INSULIN (NOVOLOG) ASPART 100 UNITS/ML 10ML VIAL SQ SCH (08:02)
[2017-06-29] MEDS ORDERED: INSULIN (NOVOLOG) ASPART 100 UNITS/ML 10ML VIAL ONE ×2 (08:03→11:48)
[2017-06-29] MEDS ORDERED: PT OWN MED DRAWER 7, Y5N ONE ×2 (09:01→11:51)
[2017-06-29] MEDS: predniSONE 10 MG TABLET (UD) PO SCH (10:29)
[2017-06-29] MEDS: APIXABAN 5 MG TABLET PO SCH ×2 (10:29→21:41)
[2017-06-29] MEDS: LISINOPRIL 20 MG TABLET (FP) PO SCH (10:29)
[2017-06-29] MEDS: PRENATAL VITAMINS W/ FOLIC ACID TABLET (FP) PO SCH (10:29)
[2017-06-29] MEDS: TETRAHYDROZOLINE HCL 1 DROP DROPS OD PRN (10:30)
[2017-06-29] MEDS: TIOTROPIUM BROMIDE 18 MCG/INH (DEVICE W/ 5 CAPSULES) IH SCH (10:30)
[2017-06-29] MEDS: BUDESONIDE/FORMETEROL FUMARATE 80/4.5 mcg INHALER IH SCH ×2 (10:31→21:46)
[2017-06-29] MEDS: AMOX TR/POT CLAV 500MG/125MG TABLETS (FP) PO SCH (17:35)
[2017-06-29] MEDS: MONTELUKAST NA 10 MG TABLET PO SCH (21:41)
[2017-06-29] MEDS: THIAMINE HCL 100 MG TABLET (FP) PO SCH (21:41)
[2017-06-29] MEDS: METOPROLOL TARTRATE 25 MG TABLET (FP) PO SCH (21:41)
[2017-06-29] MEDS: ATORVASTATIN CA 40 MG TABLET (FP) PO SCH (21:41)
[2017-06-29] MEDS: INSULIN DETEMIR 100 UNITS/ML MDV SQ SCH (21:46)
[2017-06-29] MEDS: diphenhydrAMINE HCL 25 MG CAPSULE (FP) PO PRN (21:57)
[2017-06-30] MEDS: MAG HYDROX/ALH/SMC/DPHA/LIDO 240 ML MOUTHWASH MM SCH ×4 (01:16→17:04)
[2017-06-30] MEDS: NYSTATIN 500,000 UNITS/5 ML SUSPENSION PO SCH ×4 (01:16→17:07)
[2017-06-30] MEDS ORDERED: PT OWN MED DRAWER 7, Y5N ONE ×2 (03:35→16:44)
[2017-06-30] MEDS ORDERED: ALBUTEROL SO4 0.083% IH SOL 2.5 MG/3 ML VIAL.NEB. NEB PRN (06:00)
[2017-06-30] MEDS: CYCLOBENZAPRINE HCL 10 MG TABLET (FP) PO SCH ×3 (06:51→21:35)
[2017-06-30] MEDS: AMOX TR/POT CLAV 500MG/125MG TABLETS (FP) PO SCH ×2 (07:50→17:04)
[2017-06-30] MEDS: INSULIN SLIDING SCALE (NOVOLOG) 1 VIAL SQ SCH ×4 (07:50→21:38)
[2017-06-30] MEDS: INSULIN (NOVOLOG) ASPART 100 UNITS/ML 10ML VIAL SQ SCH (07:51)
[2017-06-30] MEDS: BUDESONIDE/FORMETEROL FUMARATE 80/4.5 mcg INHALER IH SCH ×2 (10:32→21:41)
[2017-06-30] MEDS: TIOTROPIUM BROMIDE 18 MCG/INH (DEVICE W/ 5 CAPSULES) IH SCH (10:32)
[2017-06-30] MEDS: APIXABAN 5 MG TABLET PO SCH ×2 (10:33→21:35)
[2017-06-30] MEDS: LISINOPRIL 20 MG TABLET (FP) PO SCH (10:33)
[2017-06-30] MEDS: predniSONE 10 MG TABLET (UD) PO SCH (10:33)
[2017-06-30] MEDS: PRENATAL VITAMINS W/ FOLIC ACID TABLET (FP) PO SCH (10:33)
[2017-06-30] MEDS ORDERED: INSULIN (NOVOLOG) ASPART 100 UNITS/ML 10ML VIAL ONE ×3 (11:53→22:35)
[2017-06-30] MEDS: THIAMINE HCL 100 MG TABLET (FP) PO SCH (21:34)
[2017-06-30] MEDS: METOPROLOL TARTRATE 25 MG TABLET (FP) PO SCH (21:35)
[2017-06-30] MEDS: MONTELUKAST NA 10 MG TABLET PO SCH (21:35)
[2017-06-30] MEDS: ATORVASTATIN CA 40 MG TABLET (FP) PO SCH (21:35)
[2017-06-30] MEDS: INSULIN DETEMIR 100 UNITS/ML MDV SQ SCH (21:40)
[2017-07-01] MEDS: MAG HYDROX/ALH/SMC/DPHA/LIDO 240 ML MOUTHWASH MM SCH ×4 (02:39→17:08)
[2017-07-01] MEDS: NYSTATIN 500,000 UNITS/5 ML SUSPENSION PO SCH ×4 (02:40→18:25)
[2017-07-01] MEDS: CYCLOBENZAPRINE HCL 10 MG TABLET (FP) PO SCH ×3 (06:37→21:35)
[2017-07-01] MEDS: VITAMINS A AND D TOPICAL OINTMENT 60 GM TUBE TP PRN (07:15)
[2017-07-01] MEDS: AMOX TR/POT CLAV 500MG/125MG TABLETS (FP) PO SCH ×2 (07:16→17:06)
[2017-07-01] MEDS: INSULIN (NOVOLOG) ASPART 100 UNITS/ML 10ML VIAL SQ SCH (07:20)
[2017-07-01] MEDS: INSULIN SLIDING SCALE (NOVOLOG) 1 VIAL SQ SCH ×4 (07:20→21:39)
[2017-07-01] MEDS: predniSONE 10 MG TABLET (UD) PO SCH (10:01)
[2017-07-01] MEDS: LISINOPRIL 20 MG TABLET (FP) PO SCH (10:01)
[2017-07-01] MEDS: APIXABAN 5 MG TABLET PO SCH ×2 (10:01→21:35)
[2017-07-01] MEDS: PRENATAL VITAMINS W/ FOLIC ACID TABLET (FP) PO SCH (10:01)
[2017-07-01] MEDS: BUDESONIDE/FORMETEROL FUMARATE 80/4.5 mcg INHALER IH SCH ×2 (10:01→21:39)
[2017-07-01] MEDS: TIOTROPIUM BROMIDE 18 MCG/INH (DEVICE W/ 5 CAPSULES) IH SCH (10:01)
[2017-07-01] MEDS ORDERED: INSULIN (NOVOLOG) ASPART 100 UNITS/ML 10ML VIAL ONE ×2 (11:48→16:56)
[2017-07-01] MEDS ORDERED: PT OWN MED DRAWER 7, Y5N ONE ×3 (11:51→22:36)
[2017-07-01] MEDS: THIAMINE HCL 100 MG TABLET (FP) PO SCH (21:35)
[2017-07-01] MEDS: ATORVASTATIN CA 40 MG TABLET (FP) PO SCH (21:35)
[2017-07-01] MEDS: METOPROLOL TARTRATE 25 MG TABLET (FP) PO SCH (21:35)
[2017-07-01] MEDS: MONTELUKAST NA 10 MG TABLET PO SCH (21:35)
[2017-07-01] MEDS: INSULIN DETEMIR 100 UNITS/ML MDV SQ SCH (21:40)
[2017-07-02] MEDS: NYSTATIN 500,000 UNITS/5 ML SUSPENSION PO SCH ×4 (00:39→17:06)
[2017-07-02] MEDS: MAG HYDROX/ALH/SMC/DPHA/LIDO 240 ML MOUTHWASH MM SCH ×4 (00:39→17:06)
[2017-07-02] MEDS: CYCLOBENZAPRINE HCL 10 MG TABLET (FP) PO SCH ×3 (06:51→21:33)
[2017-07-02] MEDS: AMOX TR/POT CLAV 500MG/125MG TABLETS (FP) PO SCH ×2 (08:02→16:53)
[2017-07-02] MEDS: INSULIN (NOVOLOG) ASPART 100 UNITS/ML 10ML VIAL SQ SCH (08:03)
[2017-07-02] MEDS: INSULIN SLIDING SCALE (NOVOLOG) 1 VIAL SQ SCH ×4 (08:03→21:36)
[2017-07-02] MEDS ORDERED: INSULIN (NOVOLOG) ASPART 100 UNITS/ML 10ML VIAL ONE ×3 (08:04→21:42)
[2017-07-02] MEDS ORDERED: PT OWN MED DRAWER 7, Y5N ONE ×3 (08:05→21:44)
[2017-07-02] MEDS: BUDESONIDE/FORMETEROL FUMARATE 80/4.5 mcg INHALER IH SCH ×2 (10:31→21:34)
[2017-07-02] MEDS: APIXABAN 5 MG TABLET PO SCH ×2 (10:32→21:32)
[2017-07-02] MEDS: predniSONE 10 MG TABLET (UD) PO SCH (10:32)
[2017-07-02] MEDS: PRENATAL VITAMINS W/ FOLIC ACID TABLET (FP) PO SCH (10:32)
[2017-07-02] MEDS: LISINOPRIL 20 MG TABLET (FP) PO SCH (10:32)
[2017-07-02] MEDS: TIOTROPIUM BROMIDE 18 MCG/INH (DEVICE W/ 5 CAPSULES) IH SCH (10:33)
--- NOTE | 2017-07-02 19:38 | PN ---
S Progress Note Note: Pt was given Insulin 12u coverage for FS of 458mg/dl. Pt showed no s/s of hyperglycemia; no nausea, vomiting nor diaphoresis noted. Reinforced the importance of diabetic diet with pt
[2017-07-02] MEDS: THIAMINE HCL 100 MG TABLET (FP) PO SCH (21:32)
[2017-07-02] MEDS: ATORVASTATIN CA 40 MG TABLET (FP) PO SCH (21:32)
[2017-07-02] MEDS: METOPROLOL TARTRATE 25 MG TABLET (FP) PO SCH (21:32)
[2017-07-02] MEDS: MONTELUKAST NA 10 MG TABLET PO SCH (21:33)
[2017-07-02] MEDS: diphenhydrAMINE HCL 25 MG CAPSULE (FP) PO PRN (21:34)
[2017-07-02] MEDS: INSULIN DETEMIR 100 UNITS/ML MDV SQ SCH (21:35)
[2017-07-03] MEDS: NYSTATIN 500,000 UNITS/5 ML SUSPENSION PO SCH ×5 (00:10→23:36)
[2017-07-03] MEDS: MAG HYDROX/ALH/SMC/DPHA/LIDO 240 ML MOUTHWASH MM SCH ×5 (00:10→23:36)
[2017-07-03] MEDS: CYCLOBENZAPRINE HCL 10 MG TABLET (FP) PO SCH ×3 (06:34→21:48)
[2017-07-03] MEDS: AMOX TR/POT CLAV 500MG/125MG TABLETS (FP) PO SCH ×2 (08:00→17:12)
[2017-07-03] MEDS: INSULIN SLIDING SCALE (NOVOLOG) 1 VIAL SQ SCH ×4 (08:01→21:52)
[2017-07-03] MEDS: INSULIN (NOVOLOG) ASPART 100 UNITS/ML 10ML VIAL SQ SCH (08:01)
[2017-07-03] MEDS ORDERED: INSULIN (NOVOLOG) ASPART 100 UNITS/ML 10ML VIAL ONE ×2 (08:03→11:47)
[2017-07-03] MEDS: BUDESONIDE/FORMETEROL FUMARATE 80/4.5 mcg INHALER IH SCH ×2 (09:45→21:47)
[2017-07-03] MEDS: LISINOPRIL 20 MG TABLET (FP) PO SCH (09:46)
[2017-07-03] MEDS: predniSONE 10 MG TABLET (UD) PO SCH (09:46)
[2017-07-03] MEDS: PRENATAL VITAMINS W/ FOLIC ACID TABLET (FP) PO SCH (09:46)
[2017-07-03] MEDS: APIXABAN 5 MG TABLET PO SCH ×2 (09:46→21:48)
[2017-07-03] MEDS: TIOTROPIUM BROMIDE 18 MCG/INH (DEVICE W/ 5 CAPSULES) IH SCH (09:47)
[2017-07-03] MEDS: VITAMINS A AND D TOPICAL OINTMENT 60 GM TUBE TP PRN (09:47)
[2017-07-03] MEDS: MAG HYDROX/AL HYDROX/SIMETH 30 ML UNIT-DOSE CUP PO PRN (15:49)
[2017-07-03] MEDS: ALBUTEROL SO4 0.083% IH SOL 2.5 MG/3 ML VIAL.NEB. NEB PRN (19:43)
[2017-07-03] MEDS: diphenhydrAMINE HCL 25 MG CAPSULE (FP) PO PRN (21:47)
[2017-07-03] MEDS: THIAMINE HCL 100 MG TABLET (FP) PO SCH (21:47)
[2017-07-03] MEDS: ATORVASTATIN CA 40 MG TABLET (FP) PO SCH (21:48)
[2017-07-03] MEDS: MONTELUKAST NA 10 MG TABLET PO SCH (21:48)
[2017-07-03] MEDS: METOPROLOL TARTRATE 25 MG TABLET (FP) PO SCH (21:48)
[2017-07-03] MEDS: INSULIN DETEMIR 100 UNITS/ML MDV SQ SCH (21:52)
[2017-07-04] MEDS: CYCLOBENZAPRINE HCL 10 MG TABLET (FP) PO SCH ×3 (06:44→21:49)
[2017-07-04] MEDS: VITAMINS A AND D TOPICAL OINTMENT 60 GM TUBE TP PRN (06:44)
[2017-07-04] MEDS: MAG HYDROX/ALH/SMC/DPHA/LIDO 240 ML MOUTHWASH MM SCH ×3 (06:45→17:22)
[2017-07-04] MEDS: NYSTATIN 500,000 UNITS/5 ML SUSPENSION PO SCH ×3 (06:45→17:22)
[2017-07-04] MEDS: AMOX TR/POT CLAV 500MG/125MG TABLETS (FP) PO SCH ×2 (07:56→17:19)
[2017-07-04] MEDS: INSULIN SLIDING SCALE (NOVOLOG) 1 VIAL SQ SCH ×4 (07:57→21:47)
[2017-07-04] MEDS: INSULIN (NOVOLOG) ASPART 100 UNITS/ML 10ML VIAL SQ SCH (07:57)
[2017-07-04] MEDS ORDERED: INSULIN (NOVOLOG) ASPART 100 UNITS/ML 10ML VIAL ONE ×4 (07:58→23:37)
[2017-07-04] MEDS: TIOTROPIUM BROMIDE 18 MCG/INH (DEVICE W/ 5 CAPSULES) IH SCH (09:53)
[2017-07-04] MEDS: PRENATAL VITAMINS W/ FOLIC ACID TABLET (FP) PO SCH (09:54)
[2017-07-04] MEDS: predniSONE 10 MG TABLET (UD) PO SCH (09:54)
[2017-07-04] MEDS: APIXABAN 5 MG TABLET PO SCH ×2 (09:55→21:49)
[2017-07-04] MEDS: LISINOPRIL 20 MG TABLET (FP) PO SCH (09:55)
[2017-07-04] MEDS: BUDESONIDE/FORMETEROL FUMARATE 80/4.5 mcg INHALER IH SCH ×2 (09:56→21:50)
[2017-07-04] MEDS ORDERED: PT OWN MED DRAWER 7, Y5N ONE ×2 (10:14→17:18)
[2017-07-04] MEDS: ALBUTEROL SO4 0.083% IH SOL 2.5 MG/3 ML VIAL.NEB. NEB PRN (15:42)
[2017-07-04] MEDS: INSULIN DETEMIR 100 UNITS/ML MDV SQ SCH (21:46)
[2017-07-04] MEDS: THIAMINE HCL 100 MG TABLET (FP) PO SCH (21:48)
[2017-07-04] MEDS: METOPROLOL TARTRATE 25 MG TABLET (FP) PO SCH (21:49)
[2017-07-04] MEDS: MONTELUKAST NA 10 MG TABLET PO SCH (21:49)
[2017-07-04] MEDS: ATORVASTATIN CA 40 MG TABLET (FP) PO SCH (21:49)
[2017-07-04] MEDS ORDERED: INSULIN DETEMIR 100 UNITS/ML MDV SQ ONE (23:36)
[2017-07-05] MEDS: MAG HYDROX/ALH/SMC/DPHA/LIDO 240 ML MOUTHWASH MM SCH ×4 (00:58→17:06)
[2017-07-05] MEDS: NYSTATIN 500,000 UNITS/5 ML SUSPENSION PO SCH ×4 (00:58→17:09)
[2017-07-05] MEDS: CYCLOBENZAPRINE HCL 10 MG TABLET (FP) PO SCH ×3 (07:07→21:47)
[2017-07-05] MEDS: INSULIN SLIDING SCALE (NOVOLOG) 1 VIAL SQ SCH ×4 (07:52→21:52)
[2017-07-05] MEDS: INSULIN (NOVOLOG) ASPART 100 UNITS/ML 10ML VIAL SQ SCH (07:52)
[2017-07-05] MEDS ORDERED: INSULIN (NOVOLOG) ASPART 100 UNITS/ML 10ML VIAL ONE ×3 (07:54→17:05)
[2017-07-05] MEDS ORDERED: PT OWN MED DRAWER 7, Y5N ONE ×2 (08:52→11:01)
[2017-07-05] MEDS: BUDESONIDE/FORMETEROL FUMARATE 80/4.5 mcg INHALER IH SCH ×2 (10:45→21:52)
[2017-07-05] MEDS: predniSONE 10 MG TABLET (UD) PO SCH (10:45)
[2017-07-05] MEDS: APIXABAN 5 MG TABLET PO SCH ×2 (10:45→21:47)
[2017-07-05] MEDS: PRENATAL VITAMINS W/ FOLIC ACID TABLET (FP) PO SCH (10:45)
[2017-07-05] MEDS: LISINOPRIL 20 MG TABLET (FP) PO SCH (10:45)
[2017-07-05] MEDS: TIOTROPIUM BROMIDE 18 MCG/INH (DEVICE W/ 5 CAPSULES) IH SCH (10:46)
[2017-07-05] MEDS: VITAMINS A AND D TOPICAL OINTMENT 60 GM TUBE TP PRN (10:47)
[2017-07-05] MEDS: TETRAHYDROZOLINE HCL 1 DROP DROPS OD PRN (10:47)
[2017-07-05] MEDS: ALBUTEROL SO4 0.083% IH SOL 2.5 MG/3 ML VIAL.NEB. NEB PRN (10:49)
[2017-07-05] MEDS ORDERED: ALBUTEROL SO4 0.083% IH SOL 2.5 MG/3 ML VIAL.NEB. NEB PRN (13:08)
--- NOTE | 2017-07-05 13:13 | PN ---
[facility] Progress Note (SOAP) Subjective: stil c/o urti, nasal congestion,ear kenney when she coughs antibiotic sd/c bringing up greenish plhlegm Objective: 07/05/17 13:11 Vital Signs - 8 hr 07/05/17 07/05/17 07:32 09:24 Temperature 98.0 F Pulse Rate 88 103 H Respiratory 18 Rate Blood Pressure 108/63 98/62 Laboratory Tests 06/12/17 06/12/17 06/12/17 12:04 17:17 21:51 POC Glucometer 348 502 468 06/13/17 06/13/17 06/13/17 06:47 11:52 17:03 POC Glucometer 270 282 457 06/13/17 06/14/17 06/14/17 21:43 07:07 11:51 POC Glucometer 419 231 306 06/14/17 06/14/17 06/15/17 16:21 21:51 06:52 POC Glucometer 392 329 237 06/15/17 06/15/17 06/15/17 11:53 16:51 21:59 POC Glucometer 216 387 391 06/16/17 06/16/17 06/16/17 06:46 11:49 17:14 POC Glucometer 226 192 413 06/16/17 06/17/17 06/17/17 22:02 06:35 11:58 POC Glucometer 393 186 209 06/17/17 06/17/17 06/18/17 16:54 21:03 06:43 POC Glucometer 389 406 212 06/18/17 06/18/17 06/18/17 11:48 17:08 21:44 POC Glucometer 132 352 353 06/19/17 06/19/17 06/19/17 06:46 11:49 17:11 POC Glucometer 177 223 434 06/19/17 06/20/17 06/20/17 21:40 06:41 12:02 POC Glucometer 341 263 150 06/20/17 06/20/17 06/21/17 16:53 21:55 06:54 POC Glucometer 371 313 196 06/21/17 06/21/17 06/21/17 11:42 17:07 21:52 POC Glucometer 116 408 358 06/22/17 06/22/17 06/22/17 06:47 11:49 17:03 POC Glucometer 233 255 314 06/22/17 06/23/17 06/23/17 21:43 06:29 11:43 POC Glucometer 460 166 238 06/23/17 06/23/17 06/24/17 17:09 21:39 06:46 POC Glucometer 438 365 238 06/24/17 06/24/17 06/24/17 11:46 16:56 21:54 POC Glucometer 209 336 324 06/25/17 06/25/17 06/25/17 06:52 11:46 17:10 POC Glucometer 247 294 433 06/25/17 06/26/17 06/26/17 21:53 07:10 11:56 POC Glucometer 341 181 237 06/26/17 06/26/17 06/27/17 17:11 21:49 06:45 POC Glucometer 404 359 262 06/27/17 06/27/17 06/27/17 11:46 17:19 21:48 POC Glucometer 154 379 302 06/28/17 06/28/17 06/28/17 06:28 11:42 16:51 POC Glucometer 235 298 408 06/28/17 06/29/17 06/29/17 21:40 06:34 11:46 POC Glucometer 363 246 212 06/29/17 06/29/17 06/30/17 16:58 21:44 06:51 POC Glucometer 397 438 241 06/30/17 06/30/17 06/30/17 11:49 17:04 21:38 POC Glucometer 233 376 364 07/01/17 07/01/17 07/01/17 06:39 11:46 17:06 POC Glucometer 271 217 393 07/01/17 07/02/17 07/02/17 21:37 06:51 10:44 POC Glucometer 339 254 286 07/02/17 07/02/17 07/03/17 16:52 21:32 06:34 POC Glucometer 458 347 252 07/03/17 07/03/17 07/03/17 11:42 17:14 21:51 POC Glucometer 284 355 339 07/04/17 07/04/17 07/04/17 06:43 11:47 17:18 POC Glucometer 268 271 413 07/04/17 07/05/17 07/05/17 21:46 07:07 11:50 POC Glucometer 295 279 211 hyperglycemai Assessment: 07/05/17 13:12 yrtia, uncontrolled diabetes, asthma neb q4h, start flonase, claritin, d/c antibioitics, sputum for culture, repeat labs, trya nd control blood sugar by cont decrease of prednisone
[2017-07-05] MEDS ORDERED: NAPROXEN 500 MG TABLET (FP) PO SCH (13:15)
[2017-07-05] MEDS: LORATADINE 10 MG TABLET PO SCH (15:18)
[2017-07-05] MEDS: FLUTICASONE PROP 0.05% 16 GM NASAL SPRAY NS SCH (17:06)
[2017-07-05] MEDS: PANTOPRAZOLE 40 MG TABLET (FP) PO SCH (17:09)
[2017-07-05] MEDS: MONTELUKAST NA 10 MG TABLET PO SCH (21:47)
[2017-07-05] MEDS: ATORVASTATIN CA 40 MG TABLET (FP) PO SCH (21:47)
[2017-07-05] MEDS: THIAMINE HCL 100 MG TABLET (FP) PO SCH (21:47)
[2017-07-05] MEDS: METOPROLOL TARTRATE 25 MG TABLET (FP) PO SCH (21:52)
[2017-07-05] MEDS: INSULIN DETEMIR 100 UNITS/ML MDV SQ SCH (21:52)
[2017-07-06] MEDS: NYSTATIN 500,000 UNITS/5 ML SUSPENSION PO SCH ×4 (00:59→18:35)
[2017-07-06] MEDS: MAG HYDROX/ALH/SMC/DPHA/LIDO 240 ML MOUTHWASH MM SCH ×4 (00:59→17:16)
[2017-07-06] MEDS: CYCLOBENZAPRINE HCL 10 MG TABLET (FP) PO SCH ×3 (07:00→21:42)
[2017-07-06] MEDS: INSULIN SLIDING SCALE (NOVOLOG) 1 VIAL SQ SCH ×4 (07:40→21:46)
[2017-07-06] MEDS: INSULIN (NOVOLOG) ASPART 100 UNITS/ML 10ML VIAL SQ SCH (07:40)
[2017-07-06] MEDS ORDERED: INSULIN (NOVOLOG) ASPART 100 UNITS/ML 10ML VIAL ONE ×3 (07:42→17:11)
[2017-07-06] MEDS ORDERED: PT OWN MED DRAWER 7, Y5N ONE ×2 (07:42→08:54)
[2017-07-06] MEDS: TIOTROPIUM BROMIDE 18 MCG/INH (DEVICE W/ 5 CAPSULES) IH SCH (10:02)
[2017-07-06] MEDS: LORATADINE 10 MG TABLET PO SCH (10:03)
[2017-07-06] MEDS: APIXABAN 5 MG TABLET PO SCH ×2 (10:03→21:42)
[2017-07-06] MEDS: predniSONE 5 MG TABLET (UD) PO SCH (10:03)
[2017-07-06] MEDS: PANTOPRAZOLE 40 MG TABLET (FP) PO SCH (10:04)
[2017-07-06] MEDS: LISINOPRIL 20 MG TABLET (FP) PO SCH (10:04)
[2017-07-06] MEDS: BUDESONIDE/FORMETEROL FUMARATE 80/4.5 mcg INHALER IH SCH ×2 (10:04→21:41)
[2017-07-06] MEDS: PRENATAL VITAMINS W/ FOLIC ACID TABLET (FP) PO SCH (10:04)
[2017-07-06] MEDS: FLUTICASONE PROP 0.05% 16 GM NASAL SPRAY NS SCH (10:05)
[2017-07-06 10:37] LABS: CHLORIDE 102 mmol/L (98-107); SODIUM 140 mmol/L (136-145)
[2017-07-06 10:41] LABS: BASO % 0.5 % (0-2.0); EOS % 1.6 % (0-4.5); HEMATOCRIT 44.9 % (32.4-45.2); HEMOGLOBIN 14.3 GM/dL (10.7-15.3); LYMPH % 42.6 % (8-40); MCH 28.2 pg (25.7-33.7); MEAN CELL VOLUME 88.2 fl (80-96); MEAN PLT VOLUME 9.4 fl (7.5-11.1); MONO % 7.5 % (3.8-10.2); NEUT % 47.8 % (42.8-82.8); PLATELET COUNT 256 K/MM3 (134-434); RBC 5.09 M/mm3 (3.60-5.2); RDW 15.1 % (11.6-15.6); WHITE BLOOD COUNT 10.9 K/mm3 (4.0-10.0)
[2017-07-06 10:45] LABS: ALBUMIN 3.7 g/dl (3.4-5.0); ALK PHOS 105 U/L (45-117); ANION GAP 8 (8-16); BILIRUBIN,TOTAL 0.6 mg/dL (0.2-1.0); BLOOD UREA NITROGEN 16 mg/dL (7-18); CALCIUM 8.7 mg/dL (8.5-10.1); CO2 30 mmol/L (21-32); CREATININE 0.9 mg/dL (0.55-1.02); GLUCOSE,RANDOM 283 mg/dL (74-106); SGOT/AST 16 U/L (15-37); SGPT/ALT 42 U/L (12-78); TOT PROT 7.1 g/dl (6.4-8.2)
--- NOTE | 2017-07-06 14:48 | PN ---
[facility] Progress Note (SOAP) Subjective: patient wishes to stop protonix as she is not on naprosyn ecause of eliquis, no GERD or acid reflux Objective: 07/06/17 14:46 Vital Signs - 8 hr 07/06/17 08:06 Temperature 97.9 F Pulse Rate 61 Respiratory 20 Rate Blood Pressure 123/68 Laboratory Tests 06/12/17 06/12/17 06/12/17 12:04 17:17 21:51 WBC RBC Hgb Hct MCV MCH MCHC RDW Plt Count MPV Neutrophils % Lymphocytes % Monocytes % Eosinophils % Basophils % Sodium Potassium Chloride Carbon Dioxide Anion Gap BUN Creatinine Creat Clearance w eGFR POC Glucometer 348 502 468 Random Glucose Calcium Total Bilirubin AST ALT Alkaline Phosphatase Total Protein Albumin 06/13/17 06/13/17 06/13/17 06:47 11:52 17:03 WBC RBC Hgb Hct MCV MCH MCHC RDW Plt Count MPV Neutrophils % Lymphocytes % Monocytes % Eosinophils % Basophils % Sodium Potassium Chloride Carbon Dioxide Anion Gap BUN Creatinine Creat Clearance w eGFR POC Glucometer 270 282 457 Random Glucose Calcium Total Bilirubin AST ALT Alkaline Phosphatase Total Protein Albumin 06/13/17 06/14/17 06/14/17 21:43 07:07 11:51 WBC RBC Hgb Hct MCV MCH MCHC RDW Plt Count MPV Neutrophils % Lymphocytes % Monocytes % Eosinophils % Basophils % Sodium Potassium Chloride Carbon Dioxide Anion Gap BUN Creatinine Creat Clearance w eGFR POC Glucometer 419 231 306 Random Glucose Calcium Total Bilirubin AST ALT Alkaline Phosphatase Total Protein Albumin 06/14/17 06/14/17 06/15/17 16:21 21:51 06:52 WBC RBC Hgb Hct MCV MCH MCHC RDW Plt Count MPV Neutrophils % Lymphocytes % Monocytes % Eosinophils % Basophils % Sodium Potassium Chloride Carbon Dioxide Anion Gap BUN Creatinine Creat Clearance w eGFR POC Glucometer 392 329 237 Random Glucose Calcium Total Bilirubin AST ALT Alkaline Phosphatase Total Protein Albumin 06/15/17 06/15/17 06/15/17 11:53 16:51 21:59 WBC RBC Hgb Hct MCV MCH MCHC RDW Plt Count MPV Neutrophils % Lymphocytes % Monocytes % Eosinophils % Basophils % Sodium Potassium Chloride Carbon Dioxide Anion Gap BUN Creatinine Creat Clearance w eGFR POC Glucometer 216 387 391 Random Glucose Calcium Total Bilirubin AST ALT Alkaline Phosphatase Total Protein Albumin 06/16/17 06/16/17 06/16/17 06:46 11:49 17:14 WBC RBC Hgb Hct MCV MCH MCHC RDW Plt Count MPV Neutrophils % Lymphocytes % Monocytes % Eosinophils % Basophils % Sodium Potassium Chloride Carbon Dioxide Anion Gap BUN Creatinine Creat Clearance w eGFR POC Glucometer 226 192 413 Random Glucose Calcium Total Bilirubin AST ALT Alkaline Phosphatase Total Protein Albumin 06/16/17 06/17/17 06/17/17 22:02 06:35 11:58 WBC RBC Hgb Hct MCV MCH MCHC RDW Plt Count MPV Neutrophils % Lymphocytes % Monocytes % Eosinophils % Basophils % Sodium Potassium Chloride Carbon Dioxide Anion Gap BUN Creatinine Creat Clearance w eGFR POC Glucometer 393 186 209 Random Glucose Calcium Total Bilirubin AST ALT Alkaline Phosphatase Total Protein Albumin 06/17/17 06/17/17 06/18/17 16:54 21:03 06:43 WBC RBC Hgb Hct MCV MCH MCHC RDW Plt Count MPV Neutrophils % Lymphocytes % Monocytes % Eosinophils % Basophils % Sodium Potassium Chloride Carbon Dioxide Anion Gap BUN Creatinine Creat Clearance w eGFR POC Glucometer 389 406 212 Random Glucose Calcium Total Bilirubin AST ALT Alkaline Phosphatase Total Protein Albumin 06/18/17 06/18/17 06/18/17 11:48 17:08 21:44 WBC RBC Hgb Hct MCV MCH MCHC RDW Plt Count MPV Neutrophils % Lymphocytes % Monocytes % Eosinophils % Basophils % Sodium Potassium Chloride Carbon Dioxide Anion Gap BUN Creatinine Creat Clearance w eGFR POC Glucometer 132 352 353 Random Glucose Calcium Total Bilirubin AST ALT Alkaline Phosphatase Total Protein Albumin 06/19/17 06/19/17 06/19/17 06:46 11:49 17:11 WBC RBC Hgb Hct MCV MCH MCHC RDW Plt Count MPV Neutrophils % Lymphocytes % Monocytes % Eosinophils % Basophils % Sodium Potassium Chloride Carbon Dioxide Anion Gap BUN Creatinine Creat Clearance w eGFR POC Glucometer 177 223 434 Random Glucose Calcium Total Bilirubin AST ALT Alkaline Phosphatase Total Protein Albumin 06/19/17 06/20/17 06/20/17 21:40 06:41 12:02 WBC RBC Hgb Hct MCV MCH MCHC RDW Plt Count MPV Neutrophils % Lymphocytes % Monocytes % Eosinophils % Basophils % Sodium Potassium Chloride Carbon Dioxide Anion Gap BUN Creatinine Creat Clearance w eGFR POC Glucometer 341 263 150 Random Glucose Calcium Total Bilirubin AST ALT Alkaline Phosphatase Total Protein Albumin 06/20/17 06/20/17 06/21/17 16:53 21:55 06:54 WBC RBC Hgb Hct MCV MCH MCHC RDW Plt Count MPV Neutrophils % Lymphocytes % Monocytes % Eosinophils % Basophils % Sodium Potassium Chloride Carbon Dioxide Anion Gap BUN Creatinine Creat Clearance w eGFR POC Glucometer 371 313 196 Random Glucose Calcium Total Bilirubin AST ALT Alkaline Phosphatase Total Protein Albumin 06/21/17 06/21/17 06/21/17 11:42 17:07 21:52 WBC RBC Hgb Hct MCV MCH MCHC RDW Plt Count MPV Neutrophils % Lymphocytes % Monocytes % Eosinophils % Basophils % Sodium Potassium Chloride Carbon Dioxide Anion Gap BUN Creatinine Creat Clearance w eGFR POC Glucometer 116 408 358 Random Glucose Calcium Total Bilirubin AST ALT Alkaline Phosphatase Total Protein Albumin 06/22/17 06/22/17 06/22/17 06:47 11:49 17:03 WBC RBC Hgb Hct MCV MCH MCHC RDW Plt Count MPV Neutrophils % Lymphocytes % Monocytes % Eosinophils % Basophils % Sodium Potassium Chloride Carbon Dioxide Anion Gap BUN Creatinine Creat Clearance w eGFR POC Glucometer 233 255 314 Random Glucose Calcium Total Bilirubin AST ALT Alkaline Phosphatase Total Protein Albumin 06/22/17 06/23/17 06/23/17 21:43 06:29 11:43 WBC RBC Hgb Hct MCV MCH MCHC RDW Plt Count MPV Neutrophils % Lymphocytes % Monocytes % Eosinophils % Basophils % Sodium Potassium Chloride Carbon Dioxide Anion Gap BUN Creatinine Creat Clearance w eGFR POC Glucometer 460 166 238 Random Glucose Calcium Total Bilirubin AST ALT Alkaline Phosphatase Total Protein Albumin 06/23/17 06/23/17 06/24/17 17:09 21:39 06:46 WBC RBC Hgb Hct MCV MCH MCHC RDW Plt Count MPV Neutrophils % Lymphocytes % Monocytes % Eosinophils % Basophils % Sodium Potassium Chloride Carbon Dioxide Anion Gap BUN Creatinine Creat Clearance w eGFR POC Glucometer 438 365 238 Random Glucose Calcium Total Bilirubin AST ALT Alkaline Phosphatase Total Protein Albumin 06/24/17 06/24/17 06/24/17 11:46 16:56 21:54 WBC RBC Hgb Hct MCV MCH MCHC RDW Plt Count MPV Neutrophils % Lymphocytes % Monocytes % Eosinophils % Basophils % Sodium Potassium Chloride Carbon Dioxide Anion Gap BUN Creatinine Creat Clearance w eGFR POC Glucometer 209 336 324 Random Glucose Calcium Total Bilirubin AST ALT Alkaline Phosphatase Total Protein Albumin 06/25/17 06/25/17 06/25/17 06:52 11:46 17:10 WBC RBC Hgb Hct MCV MCH MCHC RDW Plt Count MPV Neutrophils % Lymphocytes % Monocytes % Eosinophils % Basophils % Sodium Potassium Chloride Carbon Dioxide Anion Gap BUN Creatinine Creat Clearance w eGFR POC Glucometer 247 294 433 Random Glucose Calcium Total Bilirubin AST ALT Alkaline Phosphatase Total Protein Albumin 06/25/17 06/26/17 06/26/17 21:53 07:10 11:56 WBC RBC Hgb Hct MCV MCH MCHC RDW Plt Count MPV Neutrophils % Lymphocytes % Monocytes % Eosinophils % Basophils % Sodium Potassium Chloride Carbon Dioxide Anion Gap BUN Creatinine Creat Clearance w eGFR POC Glucometer 341 181 237 Random Glucose Calcium Total Bilirubin AST ALT Alkaline Phosphatase Total Protein Albumin 06/26/17 06/26/17 06/27/17 17:11 21:49 06:45 WBC RBC Hgb Hct MCV MCH MCHC RDW Plt Count MPV Neutrophils % Lymphocytes % Monocytes % Eosinophils % Basophils % Sodium Potassium Chloride Carbon Dioxide Anion Gap BUN Creatinine Creat Clearance w eGFR POC Glucometer 404 359 262 Random Glucose Calcium Total Bilirubin AST ALT Alkaline Phosphatase Total Protein Albumin 06/27/17 06/27/17 06/27/17 11:46 17:19 21:48 WBC RBC Hgb Hct MCV MCH MCHC RDW Plt Count MPV Neutrophils % Lymphocytes % Monocytes % Eosinophils % Basophils % Sodium Potassium Chloride Carbon Dioxide Anion Gap BUN Creatinine Creat Clearance w eGFR POC Glucometer 154 379 302 Random Glucose Calcium Total Bilirubin AST ALT Alkaline Phosphatase Total Protein Albumin 06/28/17 06/28/17 06/28/17 06:28 11:42 16:51 WBC RBC Hgb Hct MCV MCH MCHC RDW Plt Count MPV Neutrophils % Lymphocytes % Monocytes % Eosinophils % Basophils % Sodium Potassium Chloride Carbon Dioxide Anion Gap BUN Creatinine Creat Clearance w eGFR POC Glucometer 235 298 408 Random Glucose Calcium Total Bilirubin AST ALT Alkaline Phosphatase Total Protein Albumin 06/28/17 06/29/17 06/29/17 21:40 06:34 11:46 WBC RBC Hgb Hct MCV MCH MCHC RDW Plt Count MPV Neutrophils % Lymphocytes % Monocytes % Eosinophils % Basophils % Sodium Potassium Chloride Carbon Dioxide Anion Gap BUN Creatinine Creat Clearance w eGFR POC Glucometer 363 246 212 Random Glucose Calcium Total Bilirubin AST ALT Alkaline Phosphatase Total Protein Albumin 06/29/17 06/29/17 06/30/17 16:58 21:44 06:51 WBC RBC Hgb Hct MCV MCH MCHC RDW Plt Count MPV Neutrophils % Lymphocytes % Monocytes % Eosinophils % Basophils % Sodium Potassium Chloride Carbon Dioxide Anion Gap BUN Creatinine Creat Clearance w eGFR POC Glucometer 397 438 241 Random Glucose Calcium Total Bilirubin AST ALT Alkaline Phosphatase Total Protein Albumin 06/30/17 06/30/17 06/30/17 11:49 17:04 21:38 WBC RBC Hgb Hct MCV MCH MCHC RDW Plt Count MPV Neutrophils % Lymphocytes % Monocytes % Eosinophils % Basophils % Sodium Potassium Chloride Carbon Dioxide Anion Gap BUN Creatinine Creat Clearance w eGFR POC Glucometer 233 376 364 Random Glucose Calcium Total Bilirubin AST ALT Alkaline Phosphatase Total Protein Albumin 07/01/17 07/01/17 07/01/17 06:39 11:46 17:06 WBC RBC Hgb Hct MCV MCH MCHC RDW Plt Count MPV Neutrophils % Lymphocytes % Monocytes % Eosinophils % Basophils % Sodium Potassium Chloride Carbon Dioxide Anion Gap BUN Creatinine Creat Clearance w eGFR POC Glucometer 271 217 393 Random Glucose Calcium Total Bilirubin AST ALT Alkaline Phosphatase Total Protein Albumin 07/01/17 07/02/17 07/02/17 21:37 06:51 10:44 WBC RBC Hgb Hct MCV MCH MCHC RDW Plt Count MPV Neutrophils % Lymphocytes % Monocytes % Eosinophils % Basophils % Sodium Potassium Chloride Carbon Dioxide Anion Gap BUN Creatinine Creat Clearance w eGFR POC Glucometer 339 254 286 Random Glucose Calcium Total Bilirubin AST ALT Alkaline Phosphatase Total Protein Albumin 07/02/17 07/02/17 07/03/17 16:52 21:32 06:34 WBC RBC Hgb Hct MCV MCH MCHC RDW Plt Count MPV Neutrophils % Lymphocytes % Monocytes % Eosinophils % Basophils % Sodium Potassium Chloride Carbon Dioxide Anion Gap BUN Creatinine Creat Clearance w eGFR POC Glucometer 458 347 252 Random Glucose Calcium Total Bilirubin AST ALT Alkaline Phosphatase Total Protein Albumin 07/03/17 07/03/17 07/03/17 11:42 17:14 21:51 WBC RBC Hgb Hct MCV MCH MCHC RDW Plt Count MPV Neutrophils % Lymphocytes % Monocytes % Eosinophils % Basophils % Sodium Potassium Chloride Carbon Dioxide Anion Gap BUN Creatinine Creat Clearance w eGFR POC Glucometer 284 355 339 Random Glucose Calcium Total Bilirubin AST ALT Alkaline Phosphatase Total Protein Albumin 07/04/17 07/04/17 07/04/17 06:43 11:47 17:18 WBC RBC Hgb Hct MCV MCH MCHC RDW Plt Count MPV Neutrophils % Lymphocytes % Monocytes % Eosinophils % Basophils % Sodium Potassium Chloride Carbon Dioxide Anion Gap BUN Creatinine Creat Clearance w eGFR POC Glucometer 268 271 413 Random Glucose Calcium Total Bilirubin AST ALT Alkaline Phosphatase Total Protein Albumin 07/04/17 07/05/17 07/05/17 21:46 07:07 11:50 WBC RBC Hgb Hct MCV MCH MCHC RDW Plt Count MPV Neutrophils % Lymphocytes % Monocytes % Eosinophils % Basophils % Sodium Potassium Chloride Carbon Dioxide Anion Gap BUN Creatinine Creat Clearance w eGFR POC Glucometer 295 279 211 Random Glucose Calcium Total Bilirubin AST ALT Alkaline Phosphatase Total Protein Albumin 07/05/17 07/05/17 07/06/17 17:07 21:47 07:00 WBC RBC Hgb Hct MCV MCH MCHC RDW Plt Count MPV Neutrophils % Lymphocytes % Monocytes % Eosinophils % Basophils % Sodium Potassium Chloride Carbon Dioxide Anion Gap BUN Creatinine Creat Clearance w eGFR POC Glucometer 400 396 229 Random Glucose Calcium Total Bilirubin AST ALT Alkaline Phosphatase Total Protein Albumin 07/06/17 07/06/17 07/06/17 07:48 07:48 11:54 WBC 10.9 H RBC 5.09 Hgb 14.3 D Hct 44.9 MCV 88.2 MCH 28.2 MCHC 32.0 RDW 15.1 Plt Count 256 MPV 9.4 Neutrophils % 47.8 Lymphocytes % 42.6 H Monocytes % 7.5 Eosinophils % 1.6 Basophils % 0.5 Sodium 140 Potassium 4.0 Chloride 102 Carbon Dioxide 30 Anion Gap 8 BUN 16 Creatinine 0.9 Creat Clearance w eGFR > 60 POC Glucometer 237 Random Glucose 283 H Calcium 8.7 Total Bilirubin 0.6 D AST 16 ALT 42 Alkaline Phosphatase 105 Total Protein 7.1 Albumin 3.7 elevated glucose and wbc relative lympocytosis Assessment: 07/06/17 14:47 urti c/o sore throat
[2017-07-06] MEDS: MAG HYDROX/AL HYDROX/SIMETH 30 ML UNIT-DOSE CUP PO PRN (15:02)
[2017-07-06] MEDS: THIAMINE HCL 100 MG TABLET (FP) PO SCH (21:41)
[2017-07-06] MEDS: METOPROLOL TARTRATE 25 MG TABLET (FP) PO SCH (21:42)
[2017-07-06] MEDS: ATORVASTATIN CA 40 MG TABLET (FP) PO SCH (21:42)
[2017-07-06] MEDS: MONTELUKAST NA 10 MG TABLET PO SCH (21:42)
[2017-07-06] MEDS: INSULIN DETEMIR 100 UNITS/ML MDV SQ SCH (21:45)
[2017-07-06] MEDS: COLLOIDAL OATMEAL 1 BAR EACH TP PRN (21:47)
[2017-07-07] MEDS: MAG HYDROX/ALH/SMC/DPHA/LIDO 240 ML MOUTHWASH MM SCH ×4 (00:27→17:12)
[2017-07-07] MEDS: NYSTATIN 500,000 UNITS/5 ML SUSPENSION PO SCH ×4 (00:27→17:13)
[2017-07-07] MEDS ORDERED: PT OWN MED DRAWER 7, Y5N ONE ×2 (03:27→08:57)
[2017-07-07] MEDS: CYCLOBENZAPRINE HCL 10 MG TABLET (FP) PO SCH ×3 (06:26→21:37)
[2017-07-07] MEDS: INSULIN SLIDING SCALE (NOVOLOG) 1 VIAL SQ SCH ×4 (07:53→21:40)
[2017-07-07] MEDS: INSULIN (NOVOLOG) ASPART 100 UNITS/ML 10ML VIAL SQ SCH (07:53)
[2017-07-07] MEDS ORDERED: INSULIN (NOVOLOG) ASPART 100 UNITS/ML 10ML VIAL ONE ×2 (07:56→11:49)
[2017-07-07] MEDS: APIXABAN 5 MG TABLET PO SCH ×2 (10:16→21:37)
[2017-07-07] MEDS: BUDESONIDE/FORMETEROL FUMARATE 80/4.5 mcg INHALER IH SCH ×2 (10:16→21:37)
[2017-07-07] MEDS: LORATADINE 10 MG TABLET PO SCH (10:16)
[2017-07-07] MEDS: FLUTICASONE PROP 0.05% 16 GM NASAL SPRAY NS SCH (10:16)
[2017-07-07] MEDS: predniSONE 5 MG TABLET (UD) PO SCH (10:16)
[2017-07-07] MEDS: TIOTROPIUM BROMIDE 18 MCG/INH (DEVICE W/ 5 CAPSULES) IH SCH (10:16)
[2017-07-07] MEDS: PRENATAL VITAMINS W/ FOLIC ACID TABLET (FP) PO SCH (10:16)
[2017-07-07] MEDS: LISINOPRIL 20 MG TABLET (FP) PO SCH (10:16)
[2017-07-07] MEDS: MENTHOL/PHENOL 1 EACH UD MM PRN (10:20)
[2017-07-07] MEDS: METOPROLOL TARTRATE 25 MG TABLET (FP) PO SCH (21:37)
[2017-07-07] MEDS: ATORVASTATIN CA 40 MG TABLET (FP) PO SCH (21:37)
[2017-07-07] MEDS: THIAMINE HCL 100 MG TABLET (FP) PO SCH (21:37)
[2017-07-07] MEDS: MONTELUKAST NA 10 MG TABLET PO SCH (21:37)
[2017-07-07] MEDS: INSULIN DETEMIR 100 UNITS/ML MDV SQ SCH (21:38)
[2017-07-08] MEDS: NYSTATIN 500,000 UNITS/5 ML SUSPENSION PO SCH ×2 (00:27→06:47)
[2017-07-08] MEDS: MAG HYDROX/ALH/SMC/DPHA/LIDO 240 ML MOUTHWASH MM SCH ×2 (00:27→06:47)
[2017-07-08] MEDS ORDERED: PT OWN MED DRAWER 7, Y5N ONE (03:21)
[2017-07-08] MEDS: CYCLOBENZAPRINE HCL 10 MG TABLET (FP) PO SCH (06:47)
[2017-07-08 07:18] VITALS: TEMP 98.5
[2017-07-08] MEDS: INSULIN (NOVOLOG) ASPART 100 UNITS/ML 10ML VIAL SQ SCH (07:49)
[2017-07-08] MEDS: INSULIN SLIDING SCALE (NOVOLOG) 1 VIAL SQ SCH (07:49)
[2017-07-08] MEDS ORDERED: INSULIN (NOVOLOG) ASPART 100 UNITS/ML 10ML VIAL ONE (07:51)
--- NOTE | 2017-07-08 09:07 | PN ---
Psychiatric Progress Note Vital Signs: Vital Signs Period Temp Pulse Resp BP Sys/Kennedy Pulse Ox Last 24 Hr 98.5 F 79-93 -18 107-137/65-79 Date of Session: 07/08/17 Chief Complaint:: Discharge visit Current Medications: Active Medications Generic Name Dose Route Start Last Admin Trade Name Freq PRN Reason Stop Dose Admin Acetaminophen 650 mg 06/12/17 12:05 06/26/17 15:10 Tylenol - PO 650 mg Q4H PRN Administration FEVER OR PAIN Al Hydroxide/Mg Hydroxide 30 ml 06/12/17 12:05 07/06/17 15:02 Mylanta Oral Suspension - PO 30 ml Q6H PRN Administration DYSPEPSIA Albuterol Sulfate 2 puff 06/12/17 12:05 Ventolin Hfa Inhaler - IH Q4H PRN ASTHMA Albuterol Sulfate 1 amp 07/05/17 13:08 07/07/17 14:11 Ventolin 0.083% Nebulizer Soln - NEB 1 amp Q4H PRN Administration SHORT OF BREATH/WHEEZING Apixaban 5 mg 06/12/17 22:00 07/07/17 21:37 Eliquis - PO 5 mg BID PABLITO Administration Atorvastatin Calcium 40 mg 06/12/17 22:00 07/07/17 21:37 Lipitor - PO 40 mg HS PABLITO Administration Budesonide/Formoterol Fumarate 2 puff 06/12/17 22:00 07/07/17 21:37 Symbicort 80/4.5mcg - IH 2 puff BID PABLITO Administration Colloidal Oatmeal 1 applic 06/21/17 15:53 07/06/17 21:47 Aveeno Soap - TP 1 applic BID PRN Administration HYGEINE Cyclobenzaprine HCl 10 mg 06/15/17 14:00 07/08/17 06:47 Flexeril - PO 10 mg TID PABLITO Administration Diphenhydramine HCl 50 mg 06/12/17 16:06 07/03/17 21:47 Benadryl - PO 50 mg HS PRN Administration INSOMNIA Eucalyptus/Menthol/Phenol/Sorbitol 1 each 06/12/17 12:05 07/07/17 10:20 Cepastat Lozenge - MM 1 each Q4H PRN Administration SORE THROAT Fluticasone Propionate 1 spray 07/05/17 13:56 07/07/17 10:16 Flonase - NS 1 spray DAILY PABLITO Administration Guaifenesin 10 ml 06/12/17 12:05 Robitussin Dm - PO Q6H PRN COUGH Insulin Aspart 1 vial 06/12/17 12:30 07/08/17 07:49 Novolog Vial Sliding Scale - SQ 4 units ACHS PABLITO Administration Protocol Insulin Aspart 30 units 06/15/17 07:00 07/08/17 07:49 Novolog Vial SQ 30 units ACBK PABLITO Administration Insulin Detemir 50 units 06/13/17 22:00 07/07/17 21:38 Levemir Vial SQ 50 units HS PABLITO Administration Lidocaine/Aluminum/Magnesium/Simeth 5 ml 06/15/17 12:00 07/08/17 06:47 Magic Mouthwash *Sjr Formula* - MM 5 ml Q6HPO PABLITO Administration Lisinopril 20 mg 06/13/17 10:00 07/07/17 10:16 Prinivil PO 20 mg DAILY PABLITO Administration Loperamide HCl 4 mg 06/12/17 12:05 Imodium - PO Q6H PRN DIARRHEA Loratadine 10 mg 07/05/17 13:56 07/07/17 10:16 Claritin - PO 10 mg DAILY PABLITO Administration Magnesium Citrate 300 ml 06/12/17 12:05 Citroma - PO Q48H PRN CONSTIPATION Magnesium Hydroxide 30 ml 06/12/17 12:05 Milk Of Magnesia - PO DAILY PRN CONSTIPATION Metoprolol Tartrate 25 mg 06/12/17 22:00 07/07/17 21:37 Lopressor - PO 25 mg HS PABLITO Administration Montelukast Sodium 10 mg 06/12/17 22:00 07/07/17 21:37 Singulair - PO 10 mg HS PABLITO Administration Nicotine Polacrilex 2 mg 06/12/17 12:05 Nicorette Gum - BUC Q2H PRN NICOTINE REPLACEMENT RX Nystatin 500,000 units 06/16/17 12:00 07/08/17 06:47 Nystatin Oral Suspension - PO 500,000 units Q6HPO PABLITO Administration Prednisone 5 mg 07/06/17 10:00 07/07/17 10:16 Deltasone - PO 5 mg DAILY PABLITO Administration Multivit/Folic Acid/Iron 1 tab 06/13/17 10:00 07/07/17 10:16 Vitamins (Sjr) - PO 1 tab DAILY PABLITO Administration Pseudoephedrine/Triprolidine 1 combo 06/12/17 12:05 Actifed - PO TID PRN NASAL CONGESTION Tetrahydrozoline HCl 1 drop 06/14/17 10:21 07/05/17 10:47 Visine - OD 1 drop BID PRN Administration DRY EYES Thiamine HCl 100 mg 06/12/17 22:00 07/07/17 21:37 Vitamin B1 - PO 100 mg HS PABLITO Administration Tiotropium [place] 1 puff 06/13/17 10:00 07/07/17 10:16 Spiriva - IH 1 puff DAILY PABLITO Administration Vitamin A/Vitamin D 1 applic 06/13/17 10:52 07/05/17 10:47 Vitamin A & D Top Oint - TP 1 applic Q6H PRN Administration DRY SKIN Current Side Effect: No Lab tests ordered: No Lab tests reviewed: Yes Total face to face time:: 30 Mental Status Exam - Mental Status Exam Alert and Oriented to: Time, Place, Person Cognitive Function: Grossly Intact Patient Appearance: Well Groomed Mood: Euthymic Affect: Appropriate, Mood Congruent Patient Behavior: Cooperative Speech Pattern: Clear Voice Loudness: Normal Thought Process: Goal Oriented Thought Disorder: Not Present Hallucinations: Denies Suicidal Ideation: Denies Homicidal Ideation: Denies Insight/Judgement: Fair Sleep: Fair Appetite: Good Muscle strength/Tone: Normal Gait/Station: Normal Psychiatric Treatment Plan - Problem List (1) Alcohol dependence Current Visit: Yes (2) Substance-induced sleep disorder Current Visit: Yes (3) Viral pharyngitis Current Visit: Yes (4) Bronchial asthma Current Visit: Yes (5) Vaginal candidiasis Current Visit: Yes
[2017-07-08] MEDS: FLUTICASONE PROP 0.05% 16 GM NASAL SPRAY NS SCH (09:39)
[2017-07-08] MEDS: BUDESONIDE/FORMETEROL FUMARATE 80/4.5 mcg INHALER IH SCH (09:39)
[2017-07-08] MEDS: TIOTROPIUM BROMIDE 18 MCG/INH (DEVICE W/ 5 CAPSULES) IH SCH (09:39)
[2017-07-08] MEDS: LISINOPRIL 20 MG TABLET (FP) PO SCH (09:40)
[2017-07-08] MEDS: LORATADINE 10 MG TABLET PO SCH (09:40)
[2017-07-08] MEDS: predniSONE 5 MG TABLET (UD) PO SCH (09:41)
[2017-07-08] MEDS: PRENATAL VITAMINS W/ FOLIC ACID TABLET (FP) PO SCH (09:41)
[2017-07-08] MEDS: APIXABAN 5 MG TABLET PO SCH (09:41)
[2017-07-08 10:33] VITALS: BP 163/81; PULSE 56
== END 2017-07-08 09:45 | disposition home or self-care (01) | DRG 772 ==
LOC: YASAS 11:27 → Y3E 11:28
PROVIDERS: ADMIT Psychiatry & Neurology Psychiatry; ATTEND Psychiatry & Neurology Psychiatry
PROC: HZ42ZZZ Group Counseling for Substance Abuse Treatment, Cognitive-Behavioral (ICD-10-PCS; principal; 2017-06-12)
DX: F10.20 Alcohol dependence, uncomplicated (principal); F14.20 Cocaine dependence, uncomplicated; F19.282 Other psychoactive substance dependence with psychoactive substance-induced sleep disorder; I10 Essential (primary) hypertension; E11.9 Type 2 diabetes mellitus without complications; Z79.84 Long term (current) use of oral hypoglycemic drugs; J45.909 Unspecified asthma, uncomplicated; J44.9 Chronic obstructive pulmonary disease, unspecified; B37.3 Candidiasis of vulva and vagina; R76.11 Nonspecific reaction to tuberculin skin test without active tuberculosis; Z86.79 Personal history of other diseases of the circulatory system; E66.9 Obesity, unspecified; Z68.42 Body mass index [BMI] 45.0-49.9, adult
CPT/HCPCS: 36415; 80053; 82962; 85025; 87070; 87077; 87186; 87430; 93005; 93010; 94640

== ENCOUNTER 2017-12-10 08:47 | Inpatient (IN) | payer OTHER ==
[2017-12-10 09:18] VITALS: BMI 47.9
--- NOTE | 2017-12-10 10:12 | HP ---
CIWA Score - CIWA Score Nausea/Vomitin Muscle Tremors: 4-Moderate,w/Arms Extend Anxiety: 4-Mod. Anxious/Guarded Agitation: 1-Slight > Activity Paroxysmal Sweats: 1-Minimal Palms Moist Orientation: 0-Oriented Tacttile Disturbances: 1-Very Mild Itch/Numbness Auditory Disturbances: 2-Mild Harshness/Frighten Visual Disturbances: 1-Very Mild Sensitivity Headache: 2-Mild CIWA-Ar Total Score: 18 Admission ROS BHS - HPI Chief Complaint: I saw my friend get killed and I relapsed, it hurts, I couldn't take it Allergies/Adverse Reactions: Allergies Allergy/AdvReac Type Severity Reaction Status Date / Time Sulfa (Sulfonamide Allergy Hives Verified 12/10/17 09:44 Antibiotics) History of Present Illness: 57 yo woman here for detox from alcohol - last here in rehab Jun 2017. No seizures, no black outs. States she was in [facility] ED yesterday for trouble breathing - found to be related to asthma - no antibiotics were given. Exam Limitations: Clinical Condition - Ebola screening Have you traveled outside of the country in the last 21 days: No Have you been sick,other than usual withdrawal symptoms: No - Review of Systems Constitutional: Loss of Appetite, Malaise, Changes in sleep, Weakness EENT: reports: Throat Pain Respiratory: reports: Cough, Wheezing Cardiac: reports: No Symptoms Reported, Edema GI: reports: Nausea, Poor Appetite : reports: Frequency Musculoskeletal: reports: Back Pain Integumentary: reports: Dryness Neuro: reports: Headache Endocrine: reports: No Symptoms Reported Hematology: reports: No Symptoms Reported Psychiatric: reports: Judgement Intact, Anxious, other (teary, angry) Other Systems: Reviewed and Negative Patient History - Patient Medical History Hx Anemia: No Hx Asthma: Yes Hx Chronic Obstructive Pulmonary Disease (COPD): Yes Hx Cancer: No Hx Cardiac Disorders: Yes (on meds ) Hx Congestive Heart Failure: Yes Hx Hypertension: Yes Hx Hypercholesterolemia: Yes (ON MEDS) Hx Pacemaker: No HX Cerebrovascular Accident: No Hx Seizures: No Hx Dementia: No Hx Diabetes: Yes (on meds , poor control) Hx Gastrointestinal Disorders: Yes (GERD) Hx Liver Disease: No Hx Genitourinary Disorders: No Hx Sexually Transmitted Disorders: No Hx Renal Disease (ESRD): No Hx Thyroid Disease: No Hx Human Immunodeficiency Virus (HIV): No (Last tested: 08/2016: NEGATIVE.) Hx Hepatitis C: No Hx Depression: Yes (grief reaction) Hx Suicide Attempt: No Hx Bipolar Disorder: No Hx Schizophrenia: No Other Medical History: back pain, obesity - Patient Surgical History Past Surgical History: Yes Hx Neurologic Surgery: No Hx Cataract Extraction: No Hx Cardiac Surgery: Yes (at age of 8yrs old ;'hole in my heart') Hx Lung Surgery: No Hx Breast Surgery: No Hx Breast Biopsy: No Hx Abdominal Surgery: No Hx Appendectomy: No Hx Cholecystectomy: No Hx Genitourinary Surgery: No Hx Section: No Hx Orthopedic Surgery: No Hx Hysterectomy: No Other Surgical History: Bunion Correction, Bilateral, 2015. Anesthesia Reaction: Yes (Cannot be under anasthesia for > 2 hour.) - PPD History Previous Implant?: Yes Documented Results: Positive w/o proof (states took INH for one year (thinks about )) Implanted On Prior R Admission?: No Date: 09/06/16 (cxr negative) PPD to be Administered?: No - Reproductive History Last Menstrual Period: 05/25/17 - Smoking Cessation Smoking history: Former smoker Have you smoked in the past 12 months: No If you are a former smoker, when did you quit?: 20 yrs ago Cigars Per Day: 0 Hx Chewing Tobacco Use: No Initiated information on smoking cessation: No - Substance & Tx. History Hx Alcohol Use: Yes Hx Substance Use: Yes Substance Use Type: Alcohol, Cocaine Hx Substance Use Treatment: Yes (detox, rehab) - Substances Abused alcohol Route: Oral Frequency: Daily Amount used: 1/5 liquor daily Age of first use: 37 Date of Last Use: 12/09/17 cocaine Route: Inhalation Frequency: 1-2 times per week Amount used: $200 Age of first use: 37 Date of Last Use: 12/09/17 Family Disease History - Family Disease History Family Disease History: Heart Disease: Father (, never knew), CA: Mother (, stomach Ca.), Other: Father, Brother (, Unknown Cause , 2 living brothers), Sister (four - living ) Admission Physical Exam BHS - Vital Signs Vital Signs: Vital Signs - 24 hr 12/10/17 09:16 Temperature 98.3 F Pulse Rate 102 H Respiratory 20 Rate Blood Pressure 143/69 - Physical General Appearance: Yes: Nourished, Appropriately Dressed, Moderate Distress, Obese, Anxious HEENTM: Yes: Hearing grossly Normal, Normocephalic, Normal Voice, Pharynx Normal Respiratory: Yes: Wheezing Neck: Yes: No masses,lesions,Nodules, Supple Breast: Yes: Breast Exam Deferred Cardiology: Yes: Regular Rhythm, Tachycardia Abdominal: Yes: Soft, Protuberent Genitourinary: Yes: Frequency Back: Yes: Normal Inspection, Decreased Range of Motion Musculoskeletal: Yes: full range of Motion, Gait Steady, Back pain Extremities: Yes: Normal Inspection, Normal Range of Motion, Pedal Edema (1+ pitting both lower extremities) Neurological: Yes: Fully Oriented, Alert, Normal Mood/Affect, Normal Response Integumentary: Yes: Normal Color, Dry, Warm Lymphatic: Yes: Within Normal Limits - Addiitonal Findings: [id number] - Diagnostic (1) Alcohol dependence with uncomplicated withdrawal Current Visit: Yes Status: Chronic (2) Cocaine dependence Current Visit: Yes Status: Chronic Qualifiers: Substance use status: uncomplicated Qualified Code(s): F14.20 - Cocaine dependence, uncomplicated (3) Adrenal insufficiency Current Visit: Yes Status: Chronic 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 - takes hydrocortisone 25mg qam and 15mg qpm (4) CHF (congestive heart failure) Current Visit: Yes Status: Acute Qualifiers: Heart failure type: other Qualified Code(s): I50.9 - Heart failure, unspecified (5) Hypercholesteremia Current Visit: Yes Status: Chronic (6) History of atrial fibrillation Current Visit: Yes Status: Chronic Comment: takes eliquis (7) Hypertension Current Visit: Yes Status: Chronic Qualifiers: Hypertension type: essential hypertension Qualified Code(s): I10 - Essential (primary) hypertension Comment: LISINOPRIL+METOPROLOL (8) Diabetes mellitus, type II, insulin dependent Current Visit: Yes Status: Chronic Comment: BGM TIDAC LANTUS 40 UNITS HS NOVOLOG 20 UNITS ACBK (9) Positive PPD, treated Current Visit: Yes Status: Chronic Comment: CXR: 08/2016. (10) Viral pharyngitis Current Visit: Yes Status: Suspected Cleared for Admission [facility] - Detox or Rehab [facility] Level of Care: Medically Managed Detox Regimen/Protocol: Librium S Breath Alcohol Content Breath Alcohol Content: 0 Urine Pregancy Test - Result Urine Test Results: Negative- NO Line Present Urine Drug Screen - Results Drug Screen Negative: No Urine Drug Screen Results: STONE-Cocaine, TCA-Tricyclic Antidepress
[2017-12-10] MEDS ORDERED: hydrOXYzine PAMOATE 25 MG CAPSULE (FP) PO PRN (10:29)
[2017-12-10] MEDS ORDERED: MENTHOL/PHENOL 1 EACH UD MM PRN (10:29)
[2017-12-10] MEDS ORDERED: MAGNESIUM CITRATE 300 ML BOTTLE PO PRN (10:29)
[2017-12-10] MEDS ORDERED: guaiFENesin/D-METHORPHAN HB 10 ML UNIT-DOSE CUPS PO PRN (10:29)
[2017-12-10] MEDS ORDERED: P-EPHED 60MG/TRIPROLIDI 2.5MG TABLET PO PRN (10:29)
[2017-12-10] MEDS ORDERED: MAG HYDROX/AL HYDROX/SIMETH 30 ML UNIT-DOSE CUP PO PRN (10:29)
[2017-12-10] MEDS ORDERED: LOPERAMIDE HCL 2 MG CAPSULE PO PRN (10:29)
[2017-12-10] MEDS ORDERED: diazePAM 5 MG TABLET PO PRN (10:29)
[2017-12-10] MEDS ORDERED: MAGNESIUM HYDROX 2400MG/30ML ORAL SUSPENSION 30 ML CUP PO PRN (10:29)
[2017-12-10] MEDS ORDERED: diphenhydrAMINE HCL 25 MG CAPSULE (FP) PO PRN (10:32)
[2017-12-10] MEDS ORDERED: ALBUTEROL SO4 18 GM HFA INHALER IH PRN (10:34)
[2017-12-10] MEDS ORDERED: HYDROCORTISONE 20 MG TABLET PO SCH (10:45)
[2017-12-10] MEDS ORDERED: HYDROCORTISONE 5 MG TABLET PO SCH ×2 (10:45→22:00)
[2017-12-10] MEDS ORDERED: diazePAM 5 MG TABLET PO ONE (12:00)
[2017-12-10] MEDS ORDERED: AMMONIUM LACTATE 12% LOTION 225 GM BOTTLE TP PRN (12:06)
[2017-12-10] MEDS: BUDESONIDE/FORMETEROL FUMARATE 80/4.5 mcg INHALER IH SCH ×2 (12:30→22:48)
[2017-12-10] MEDS: LIDOCAINE 5% TOPICAL PATCH TP SCH (12:31)
[2017-12-10] MEDS ORDERED: INSULIN (NOVOLOG) ASPART 100 UNITS/ML 10ML VIAL ONE ×3 (12:35→22:10)
[2017-12-10] MEDS: INSULIN SLIDING SCALE (NOVOLOG) 1 VIAL SQ SCH ×3 (12:38→22:48)
[2017-12-10] MEDS: APIXABAN 5 MG TABLET PO SCH ×2 (13:09→22:47)
[2017-12-10] MEDS: diazePAM 5 MG TABLET PO SCH ×2 (15:17→22:48)
[2017-12-10 17:56] LABS: URINE APPEARANCE CLOUDY; URINE BILIRUBIN NEGATIVE (<2.0 mg/dL); URINE COLOR STRAW; URINE GLUCOSE (UA) 3+ (NEGATIVE); URINE KETONE NEGATIVE (NEGATIVE); URINE NITRITE NEGATIVE (NEGATIVE); URINE PROTEIN NEGATIVE (NEGATIVE); URINE UROBILINOGEN NEGATIVE mg/dL (0.2-1.0)
[2017-12-10 18:03] LABS: URINE LEUK ESTERASE 1+ (NEGATIVE)
[2017-12-10 18:04] LABS: EPI CELLS FEW /HPF (FEW); URINE MUCUS RARE
[2017-12-10] MEDS: ALBUTEROL SO4 2.5/IPRATROPIUM 0.5 INH SOL 3 ML VIAL.NEB. NEB PRN (20:36)
[2017-12-10] MEDS ORDERED: HYDROCORTISONE 10 MG TABLET PO SCH (22:00)
[2017-12-10] MEDS: COLLOIDAL OATMEAL 1 BAR EACH TP PRN (22:01)
[2017-12-10] MEDS: MONTELUKAST NA 10 MG TABLET PO SCH (22:47)
[2017-12-10] MEDS: METOPROLOL TARTRATE 25 MG TABLET (FP) PO SCH (22:47)
[2017-12-10] MEDS: THIAMINE HCL 100 MG TABLET (FP) PO SCH (22:47)
[2017-12-10] MEDS: ATORVASTATIN CA 40 MG TABLET (FP) PO SCH (22:48)
[2017-12-10] MEDS: LIDOCAINE PATCH REMOVAL MC SCH (22:49)
[2017-12-10] MEDS: INSULIN (LEVEMIR) 100 UNITS/ML UNITS SQ SCH (22:49)
[2017-12-10] MEDS: HYDROCORTISONE 5 MG TABLET PO SCH (22:50)
[2017-12-10] MEDS: ACETAMINOPHEN 325 MG TABLET (FP) PO PRN (22:52)
[2017-12-11] MEDS: diazePAM 5 MG TABLET PO SCH ×2 (06:22→13:56)
[2017-12-11] MEDS: INSULIN (NOVOLOG) ASPART 100 UNITS/ML 10ML VIAL SQ SCH (07:53)
[2017-12-11] MEDS: INSULIN SLIDING SCALE (NOVOLOG) 1 VIAL SQ SCH ×3 (07:53→17:12)
[2017-12-11] MEDS ORDERED: INSULIN (NOVOLOG) ASPART 100 UNITS/ML 10ML VIAL ONE ×4 (08:22→22:30)
[2017-12-11] MEDS: PRENATAL VITAMINS W/ FOLIC ACID TABLET (FP) PO SCH (10:50)
[2017-12-11] MEDS: LISINOPRIL 20 MG TABLET (FP) PO SCH (10:50)
[2017-12-11] MEDS: APIXABAN 5 MG TABLET PO SCH (10:50)
[2017-12-11] MEDS: BUDESONIDE/FORMETEROL FUMARATE 80/4.5 mcg INHALER IH SCH (10:51)
[2017-12-11] MEDS: HYDROCORTISONE 10 MG TABLET PO SCH (10:51)
[2017-12-11 11:12] LABS: HEMOGLOBIN 12.6 GM/dL (10.7-15.3); MEAN CELL VOLUME 88.7 fl (80-96)
[2017-12-11 11:14] LABS: HEMATOCRIT 38.6 % (32.4-45.2); MCH 28.9 pg (25.7-33.7); MCHC 32.6 g/dl (32.0-36.0); MEAN PLT VOLUME 8.9 fl (7.5-11.1); PLATELET COUNT 279 K/MM3 (134-434); RBC 4.36 M/mm3 (3.60-5.2); RDW 15.4 % (11.6-15.6); WHITE BLOOD COUNT 7.2 K/mm3 (4.0-10.0)
[2017-12-11 11:16] LABS: ALBUMIN 3.7 g/dl (3.4-5.0); ANION GAP 6 (8-16); BILIRUBIN,TOTAL 0.2 mg/dL (0.2-1.0); BLOOD UREA NITROGEN 14 mg/dL (7-18); CALCIUM 8.5 mg/dL (8.5-10.1); CHLORIDE 107 mmol/L (98-107); CO2 27 mmol/L (21-32); CREATININE 0.9 mg/dL (0.55-1.02); GLUCOSE,RANDOM 291 mg/dL (74-106); POTASSIUM 4.6 mmol/L (3.5-5.1); SGOT/AST 17 U/L (15-37); SGPT/ALT 38 U/L (12-78); SODIUM 140 mmol/L (136-145); TOT PROT 6.8 g/dl (6.4-8.2)
[2017-12-11 11:17] LABS: ALK PHOS 94 U/L (45-117)
[2017-12-11] MEDS: LIDOCAINE 5% TOPICAL PATCH TP SCH (11:30)
[2017-12-11] MEDS: ALBUTEROL SO4 2.5/IPRATROPIUM 0.5 INH SOL 3 ML VIAL.NEB. NEB PRN (11:36)
[2017-12-11] MEDS: ACETAMINOPHEN 325 MG TABLET (FP) PO PRN (14:03)
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
--- NOTE | 2017-12-11 14:58 | PN ---
[facility] CIWA - CIWA Score Nausea/Vomitin-Mild Nausea/No Vomiting Muscle Tremors: 4-Moderate,w/Arms Extend Anxiety: 4-Mod. Anxious/Guarded Agitation: 4-Moderately Restless Paroxysmal Sweats: 1-Minimal Palms Moist Orientation: 0-Oriented Tacttile Disturbances: 0-None Auditory Disturbances: 0-None Visual Disturbances: 0-None Headache: 0-None Present CIWA-Ar Total Score: 14 S Progress Note (SOAP) Subjective: sweat tremor trouble sleep at night anxiety mild gi distress Objective: 12/11/17 15:00 Vital Signs Temperature 97.9 F 12/11/17 13:14 Pulse Rate 87 12/11/17 13:14 Respiratory Rate 18 12/11/17 13:14 Blood Pressure 137/62 12/11/17 13:14 O2 Sat by Pulse Oximetry (%) Laboratory Last Values WBC 7.2 K/mm3 (4.0-10.0) 12/11/17 07:30 RBC 4.36 M/mm3 (3.60-5.2) 12/11/17 07:30 Hgb 12.6 GM/dL (10.7-15.3) 12/11/17 07:30 Hct 38.6 % (32.4-45.2) 12/11/17 07:30 MCV 88.7 fl (80-96) 12/11/17 07:30 MCH 28.9 pg (25.7-33.7) 12/11/17 07:30 MCHC 32.6 g/dl (32.0-36.0) 12/11/17 07:30 RDW 15.4 % (11.6-15.6) 12/11/17 07:30 Plt Count 279 K/MM3 (134-434) 12/11/17 07:30 MPV 8.9 fl (7.5-11.1) 12/11/17 07:30 Sodium 140 mmol/L (136-145) 12/11/17 07:30 Potassium 4.6 mmol/L (3.5-5.1) 12/11/17 07:30 Chloride 107 mmol/L (98-107) 12/11/17 07:30 Carbon Dioxide 27 mmol/L (21-32) 12/11/17 07:30 Anion Gap 6 (8-16) L 12/11/17 07:30 BUN 14 mg/dL (7-18) 12/11/17 07:30 Creatinine 0.9 mg/dL (0.55-1.02) 12/11/17 07:30 Creat Clearance w eGFR > 60 (>60) 12/11/17 07:30 POC Glucometer 177 UNITS (80-120) 12/11/17 11:27 Random Glucose 291 mg/dL (74-106) H 12/11/17 07:30 Calcium 8.5 mg/dL (8.5-10.1) 12/11/17 07:30 Total Bilirubin 0.2 mg/dL (0.2-1.0) 12/11/17 07:30 AST 17 U/L (15-37) 12/11/17 07:30 ALT 38 U/L (12-78) 12/11/17 07:30 Alkaline Phosphatase 94 U/L (45-117) 12/11/17 07:30 Total Protein 6.8 g/dl (6.4-8.2) 12/11/17 07:30 Albumin 3.7 g/dl (3.4-5.0) 12/11/17 07:30 Urine Color Straw 12/10/17 Unknown Urine Appearance Cloudy 12/10/17 Unknown Urine pH 5.0 (5.0-8.0) 12/10/17 Unknown Ur Specific [place] 1.029 (1.001-1.035) 12/10/17 Unknown Urine Protein Negative (NEGATIVE) 12/10/17 Unknown Urine Glucose (UA) 3+ (NEGATIVE) H 12/10/17 Unknown Urine Ketones Negative (NEGATIVE) 12/10/17 Unknown Urine Blood 1+ (NEGATIVE) H 12/10/17 Unknown Urine Nitrite Negative (NEGATIVE) 12/10/17 Unknown Urine Bilirubin Negative (<2.0 mg/dL) 12/10/17 Unknown Urine Urobilinogen Negative mg/dL (0.2-1.0) 12/10/17 Unknown Ur Leukocyte Esterase 1+ (NEGATIVE) H 12/10/17 Unknown Urine WBC (Auto) 4 /hpf (3-5) 12/10/17 Unknown Urine RBC (Auto) 2 /hpf (0-3) 12/10/17 Unknown Ur Epithelial Cells Few /HPF (FEW) 12/10/17 Unknown Urine Mucus Rare 12/10/17 Unknown RPR Titer Nonreactive (NONREACTIVE) 12/11/17 07:30 HIV 1&2 Antibody Screen Negative 12/11/17 07:30 HIV P24 Antigen Negative 12/11/17 07:30 lab noted Assessment: 12/11/17 15:00 withdrawal sx Plan: continue detox
[2017-12-11] MEDS ORDERED: FUROSEMIDE 40 MG TABLET (FP) ONE (22:27)
[2017-12-12] MEDS ORDERED: INSULIN (NOVOLOG) ASPART 100 UNITS/ML 10ML VIAL ONE ×3 (08:04→16:39)
[2017-12-12] MEDS: INSULIN (NOVOLOG) ASPART 100 UNITS/ML 10ML VIAL SQ SCH (08:04)
[2017-12-12] MEDS: INSULIN SLIDING SCALE (NOVOLOG) 1 VIAL SQ SCH ×5 (08:05→21:26)
[2017-12-12] MEDS ORDERED: AZITHROMYCIN 250 MG TABLET PO ONE (08:28)
[2017-12-12] MEDS: dilTIAZem HCL 30 MG TABLET (FP) PO SCH ×4 (08:43→22:10)
[2017-12-12] MEDS: HYDROCORTISONE 5 MG TABLET PO SCH (08:43)
[2017-12-12] MEDS: INSULIN (LEVEMIR) 100 UNITS/ML UNITS SQ SCH ×2 (08:43→22:11)
[2017-12-12] MEDS: FUROSEMIDE 40 MG TABLET (FP) PO SCH ×2 (08:43→10:39)
[2017-12-12] MEDS: LIDOCAINE PATCH REMOVAL MC SCH ×2 (08:45→22:11)
[2017-12-12] MEDS: APIXABAN 5 MG TABLET PO SCH ×3 (08:45→22:08)
[2017-12-12] MEDS: MONTELUKAST NA 10 MG TABLET PO SCH ×2 (08:46→22:08)
[2017-12-12] MEDS: METOPROLOL TARTRATE 25 MG TABLET (FP) PO SCH ×2 (08:46→22:08)
[2017-12-12] MEDS: ATORVASTATIN CA 40 MG TABLET (FP) PO SCH ×2 (08:46→22:08)
[2017-12-12] MEDS: BUDESONIDE/FORMETEROL FUMARATE 80/4.5 mcg INHALER IH SCH ×3 (08:46→22:10)
[2017-12-12] MEDS: diazePAM 5 MG TABLET PO SCH ×3 (08:47→22:08)
[2017-12-12] MEDS: THIAMINE HCL 100 MG TABLET (FP) PO SCH ×2 (08:47→22:08)
[2017-12-12] MEDS: PRENATAL VITAMINS W/ FOLIC ACID TABLET (FP) PO SCH (10:38)
[2017-12-12] MEDS: LISINOPRIL 20 MG TABLET (FP) PO SCH (10:38)
[2017-12-12] MEDS: ACETAMINOPHEN 325 MG TABLET (FP) PO PRN (10:41)
[2017-12-12] MEDS: LIDOCAINE 5% TOPICAL PATCH TP SCH (11:29)
[2017-12-12] MEDS: HYDROCORTISONE 10 MG TABLET PO SCH ×2 (11:29→22:10)
--- NOTE | 2017-12-12 13:15 | PN ---
S CIWA - CIWA Score Nausea/Vomitin Muscle Tremors: 3 Anxiety: 3 Agitation: 2 Paroxysmal Sweats: 1-Minimal Palms Moist Orientation: 0-Oriented Tacttile Disturbances: 1-Very Mild Itch/Numbness Auditory Disturbances: 1-Very Mild Visual Disturbances: 0-None Headache: 2-Mild CIWA-Ar Total Score: 16 S Progress Note (SOAP) Subjective: ALERT,IRRITABLE,ANXIOUS,INTERRUPTED SLEEP,TREMOR Objective: 12/12/17 13:13 Vital Signs Temperature 98.1 F 12/12/17 11:15 Pulse Rate 80 12/12/17 11:15 Respiratory Rate 20 12/12/17 11:15 Blood Pressure 137/87 12/12/17 11:15 O2 Sat by Pulse Oximetry (%) Laboratory Last Values WBC 7.2 K/mm3 (4.0-10.0) 12/11/17 07:30 RBC 4.36 M/mm3 (3.60-5.2) 12/11/17 07:30 Hgb 12.6 GM/dL (10.7-15.3) 12/11/17 07:30 Hct 38.6 % (32.4-45.2) 12/11/17 07:30 MCV 88.7 fl (80-96) 12/11/17 07:30 MCH 28.9 pg (25.7-33.7) 12/11/17 07:30 MCHC 32.6 g/dl (32.0-36.0) 12/11/17 07:30 RDW 15.4 % (11.6-15.6) 12/11/17 07:30 Plt Count 279 K/MM3 (134-434) 12/11/17 07:30 MPV 8.9 fl (7.5-11.1) 12/11/17 07:30 Sodium 140 mmol/L (136-145) 12/11/17 07:30 Potassium 4.6 mmol/L (3.5-5.1) 12/11/17 07:30 Chloride 107 mmol/L (98-107) 12/11/17 07:30 Carbon Dioxide 27 mmol/L (21-32) 12/11/17 07:30 Anion Gap 6 (8-16) L 12/11/17 07:30 BUN 14 mg/dL (7-18) 12/11/17 07:30 Creatinine 0.9 mg/dL (0.55-1.02) 12/11/17 07:30 Creat Clearance w eGFR > 60 (>60) 12/11/17 07:30 POC Glucometer 110 UNITS (80-120) 12/12/17 11:32 Random Glucose 291 mg/dL (74-106) H 12/11/17 07:30 Calcium 8.5 mg/dL (8.5-10.1) 12/11/17 07:30 Total Bilirubin 0.2 mg/dL (0.2-1.0) 12/11/17 07:30 AST 17 U/L (15-37) 12/11/17 07:30 ALT 38 U/L (12-78) 12/11/17 07:30 Alkaline Phosphatase 94 U/L (45-117) 12/11/17 07:30 Total Protein 6.8 g/dl (6.4-8.2) 12/11/17 07:30 Albumin 3.7 g/dl (3.4-5.0) 12/11/17 07:30 Urine Color Straw 12/10/17 Unknown Urine Appearance Cloudy 12/10/17 Unknown Urine pH 5.0 (5.0-8.0) 12/10/17 Unknown Ur Specific [place] 1.029 (1.001-1.035) 12/10/17 Unknown Urine Protein Negative (NEGATIVE) 12/10/17 Unknown Urine Glucose (UA) 3+ (NEGATIVE) H 12/10/17 Unknown Urine Ketones Negative (NEGATIVE) 12/10/17 Unknown Urine Blood 1+ (NEGATIVE) H 12/10/17 Unknown Urine Nitrite Negative (NEGATIVE) 12/10/17 Unknown Urine Bilirubin Negative (<2.0 mg/dL) 12/10/17 Unknown Urine Urobilinogen Negative mg/dL (0.2-1.0) 12/10/17 Unknown Ur Leukocyte Esterase 1+ (NEGATIVE) H 12/10/17 Unknown Urine WBC (Auto) 4 /hpf (3-5) 12/10/17 Unknown Urine RBC (Auto) 2 /hpf (0-3) 12/10/17 Unknown Ur Epithelial Cells Few /HPF (FEW) 12/10/17 Unknown Urine Mucus Rare 12/10/17 Unknown RPR Titer Nonreactive (NONREACTIVE) 12/11/17 07:30 HIV 1&2 Antibody Screen Negative 12/11/17 07:30 HIV P24 Antigen Negative 12/11/17 07:30 Assessment: 12/12/17 13:14 WITHDRAWAL SYMPTOM Plan: CONTINUE DETOX WITH BGM MONITORING
[2017-12-12] MEDS ORDERED: INSULIN (LEVEMIR) 100 UNITS/ML UNITS SQ ONE (21:29)
--- NOTE | 2017-12-12 22:13 | EKG ---
Test Reason : Blood Pressure : / mmHG Vent. Rate : 102 BPM Atrial Rate : 102 BPM P-R Int : 170 ms QRS Dur : 090 ms QT Int : 346 ms P-R-T Axes : 081 -03 091 degrees QTc Int : 450 ms SINUS TACHYCARDIA WITH PREMATURE ATRIAL COMPLEXES NONSPECIFIC T WAVE ABNORMALITY ABNORMAL ECG WHEN COMPARED WITH ECG OF 15-JUN-2017 14:58, NO SIGNIFICANT CHANGE WAS FOUND Confirmed by JOHN HARDING MD ([id number]) on 12/12/2017 10:13:18 PM Referred By: Trung Chan Confirmed By:JOHN HARDING MD
[2017-12-13] MEDS: dilTIAZem HCL 30 MG TABLET (FP) PO SCH ×3 (06:15→22:11)
[2017-12-13] MEDS: INSULIN SLIDING SCALE (NOVOLOG) 1 VIAL SQ SCH ×4 (08:17→22:34)
[2017-12-13] MEDS: INSULIN (NOVOLOG) ASPART 100 UNITS/ML 10ML VIAL SQ SCH (08:18)
[2017-12-13] MEDS ORDERED: INSULIN (NOVOLOG) ASPART 100 UNITS/ML 10ML VIAL SQ ONE (08:30)
[2017-12-13] MEDS ORDERED: Insulin (LOG) Aspart 100 UNITS/ML VIAL SQ ONE (08:30)
[2017-12-13] MEDS ORDERED: INSULIN (NOVOLOG) ASPART 100 UNITS/ML 10ML VIAL ONE ×4 (08:31→22:38)
[2017-12-13] MEDS: AZITHROMYCIN 250 MG TABLET PO SCH (10:52)
[2017-12-13] MEDS: LISINOPRIL 20 MG TABLET (FP) PO SCH (10:52)
[2017-12-13] MEDS: PRENATAL VITAMINS W/ FOLIC ACID TABLET (FP) PO SCH (10:52)
[2017-12-13] MEDS: HYDROCHLOROTHIAZIDE 25 MG TABLET (FP) PO SCH (10:52)
[2017-12-13] MEDS: BUDESONIDE/FORMETEROL FUMARATE 80/4.5 mcg INHALER IH SCH ×2 (10:53→22:12)
[2017-12-13] MEDS: APIXABAN 5 MG TABLET PO SCH ×2 (10:53→22:12)
[2017-12-13] MEDS: LIDOCAINE 5% TOPICAL PATCH TP SCH (10:54)
[2017-12-13] MEDS: COLLOIDAL OATMEAL 1 BAR EACH TP PRN (10:56)
[2017-12-13] MEDS: HYDROCORTISONE 10 MG TABLET PO SCH ×2 (10:57→22:12)
[2017-12-13] MEDS: diazePAM 5 MG TABLET PO SCH ×2 (11:00→22:12)
--- NOTE | 2017-12-13 11:22 | PN ---
S Progress Note (SOAP) Subjective: ALERT,IRRITABLE,ANXIOUS,INTERRUPTED SLEEP, Objective: 12/13/17 11:18 Vital Signs Temperature 98.6 F 12/13/17 08:45 Pulse Rate 84 12/13/17 08:45 Respiratory Rate 18 12/13/17 08:45 Blood Pressure 132/78 12/13/17 08:45 O2 Sat by Pulse Oximetry (%) 12/13/17 11:19 BGM 292 Assessment: 12/13/17 11:20 WITHDRAWAL SYMPTOM Plan: CONTINUE DETOX,BGM MONITORING STATED TAKING NOVOLOG 25 UNIT SQ IN AM DAILY BEFORE BREAKFAST
[2017-12-13] MEDS: THIAMINE HCL 100 MG TABLET (FP) PO SCH (22:11)
[2017-12-13] MEDS: MONTELUKAST NA 10 MG TABLET PO SCH (22:11)
[2017-12-13] MEDS: METOPROLOL TARTRATE 25 MG TABLET (FP) PO SCH (22:11)
[2017-12-13] MEDS: ATORVASTATIN CA 40 MG TABLET (FP) PO SCH (22:12)
[2017-12-13] MEDS: LIDOCAINE PATCH REMOVAL MC SCH (22:12)
[2017-12-13] MEDS: INSULIN (LEVEMIR) 100 UNITS/ML UNITS SQ SCH (22:34)
[2017-12-13] MEDS: ALBUTEROL SO4 2.5/IPRATROPIUM 0.5 INH SOL 3 ML VIAL.NEB. NEB PRN (22:35)
[2017-12-14] MEDS ORDERED: INSULIN (NOVOLOG) ASPART 100 UNITS/ML 10ML VIAL ONE (04:54)
[2017-12-14] MEDS: INSULIN SLIDING SCALE (NOVOLOG) 1 VIAL SQ SCH (06:52)
[2017-12-14] MEDS: dilTIAZem HCL 30 MG TABLET (FP) PO SCH (06:52)
[2017-12-14] MEDS ORDERED: INSULIN (NOVOLOG) ASPART 100 UNITS/ML 10ML VIAL SQ SCH (07:00)
[2017-12-14] MEDS ORDERED: INSULIN (NOVOLOG) ASPART 100 UNITS/ML 10ML VIAL SQ ONE ×2 (09:15)
--- NOTE | 2017-12-14 09:33 | PN ---
S Progress Note (SOAP) Subjective: ALERT,NO COMPLAINT Objective: 12/14/17 09:27 Vital Signs Temperature 97.9 F 12/14/17 07:18 Pulse Rate 77 12/14/17 07:18 Respiratory Rate 20 12/14/17 07:18 Blood Pressure 127/56 12/14/17 07:18 O2 Sat by Pulse Oximetry (%) 12/14/17 09:29 BGM 297, HB A1C 10.5 Assessment: 12/14/17 09:32 DETOX COMPLETED,NO WITHDRAWAL SYMPTOM Plan: DISCHARGE TODAY,[facility]
--- NOTE | 2017-12-14 09:48 | DS ---
[facility] Detox Discharge Summary Admission Date: 12/10/17 Discharge Date: 12/14/17 - History Present History: Alcohol Dependence, Cocaine Dependence Additional Comments: FOLLOW UP WITH AFTER CARE PROGRAM ARRANGEMENT Pertinent Past History: ATRIAL FIBRILLATION INSULIN DEPENDENCE DIABETES MELLITUS HYPERTENSION HYPERCHOLESTEROLEMIA ASTHAM COPD - Physical Exam Results Vital Signs: Vital Signs Temperature 97.9 F 12/14/17 07:18 Pulse Rate 77 12/14/17 07:18 Respiratory Rate 20 12/14/17 07:18 Blood Pressure 127/56 12/14/17 07:18 O2 Sat by Pulse Oximetry (%) - Treatment Hospital Course: Detox Protocol Followed, Detoxed Safely, Responded well, Discharged Condition Good, Rehab Referral Accepted Patient has Accepted a Rehab Referral to: [facility] - Medication Discharge Medications: Ambulatory Orders Fluticasone/Salmeterol [Advair 250-50 Diskus] 1 each IH BID #1 disk.w.dev Albuterol Sulfate Inhaler - [Ventolin HFA Inhaler -] 2 inh PO Q4H PRN #1 inh Apixaban [Eliquis -] 5 mg PO Q12H #30 tablet 07/07/17 Atorvastatin Ca [Lipitor] 40 mg PO HS #30 tablet 07/07/17 Insulin (Novolog) [Novolog Flexpen -] 25 units SQ ACBK 30 Days pen 07/07/17 Insulin Glargine,Hum.rec.anlog [Lantus Solostar PEN -] 50 units SQ HS 30 Days # 1 ins 07/07/17 Lisinopril [Prinivil] 20 mg PO DAILY #30 tablet 07/07/17 Metoprolol Tartrate [Lopressor -] 25 mg PO HS #30 tablet 07/07/17 Montelukast Na [Singulair -] 10 mg PO HS #30 tablet 07/07/17 Budesonide/Formeterol Fumarate [SYMBICORT 80/4.5mcg -] 1 inh PO BID 12/10/17 Hydrocortisone [Cortef -] 15 mg PO HS 12/10/17 Hydrocortisone [Cortef -] 25 mg PO DAILY 12/10/17 Diltiazem [Cardizem -] 30 mg PO TID 12/11/17 Furosemide [Lasix -] 40 mg PO DAILY 12/11/17 - Diagnosis (1) Alcohol dependence with uncomplicated withdrawal Current Visit: Yes Status: Acute (2) Cocaine dependence Current Visit: Yes Status: Acute Qualifiers: Substance use status: uncomplicated Qualified Code(s): F14.20 - Cocaine dependence, uncomplicated (3) Adrenal insufficiency Current Visit: Yes Status: Chronic (4) CHF (congestive heart failure) Current Visit: Yes Status: Chronic Qualifiers: Heart failure type: other Qualified Code(s): I50.9 - Heart failure, unspecified (5) Diabetes mellitus, type II, insulin dependent Current Visit: Yes Status: Chronic (6) History of atrial fibrillation Current Visit: Yes Status: Chronic (7) Hypercholesteremia Current Visit: Yes Status: Chronic (8) Hypertension Current Visit: Yes Status: Chronic Qualifiers: Hypertension type: essential hypertension Qualified Code(s): I10 - Essential (primary) hypertension (9) Positive PPD, treated Current Visit: Yes Status: Chronic (10) Bronchial asthma Current Visit: No Status: Acute (11) Asthma Current Visit: No Status: Chronic Qualifiers: Asthma severity: moderate Asthma persistence: persistent Asthma complication type: uncomplicated Qualified Code(s): J45.40 - Moderate persistent asthma, uncomplicated (12) COPD with asthma Current Visit: No Status: Chronic - AMA Did Patient Leave Against Medical Advice: No
[2017-12-14] MEDS ORDERED: diazePAM 5 MG TABLET PO SCH (10:00)
[2017-12-14] MEDS: LISINOPRIL 20 MG TABLET (FP) PO SCH (10:02)
[2017-12-14] MEDS: AZITHROMYCIN 250 MG TABLET PO SCH (10:03)
[2017-12-14] MEDS: PRENATAL VITAMINS W/ FOLIC ACID TABLET (FP) PO SCH (10:03)
[2017-12-14] MEDS: APIXABAN 5 MG TABLET PO SCH (10:03)
[2017-12-14] MEDS: HYDROCHLOROTHIAZIDE 25 MG TABLET (FP) PO SCH (10:03)
[2017-12-14] MEDS: BUDESONIDE/FORMETEROL FUMARATE 80/4.5 mcg INHALER IH SCH (10:04)
[2017-12-14] MEDS: LIDOCAINE 5% TOPICAL PATCH TP SCH (10:05)
[2017-12-14] MEDS: HYDROCORTISONE 10 MG TABLET PO SCH (10:06)
[2017-12-14 10:59] VITALS: BP 120/79; PULSE 92; TEMP 98.8
== END 2017-12-14 10:55 | disposition home or self-care (01) | DRG 774 ==
LOC: YASAS 08:47 → Y6N 11:39
PROVIDERS: ADMIT Family Medicine Addiction Medicine; ATTEND Family Medicine Addiction Medicine
PROC: HZ2ZZZZ Detoxification Services for Substance Abuse Treatment (ICD-10-PCS; principal; 2017-12-10)
DX: F10.20 Alcohol dependence, uncomplicated (principal); F14.20 Cocaine dependence, uncomplicated; I10 Essential (primary) hypertension; E11.9 Type 2 diabetes mellitus without complications; I50.9 Heart failure, unspecified; I48.91 Unspecified atrial fibrillation; J44.9 Chronic obstructive pulmonary disease, unspecified; J45.40 Moderate persistent asthma, uncomplicated; K21.9 Gastro-esophageal reflux disease without esophagitis; R76.11 Nonspecific reaction to tuberculin skin test without active tuberculosis; Z88.1 Allergy status to other antibiotic agents; Z79.4 Long term (current) use of insulin; Z79.01 Long term (current) use of anticoagulants
CPT/HCPCS: 36415; 71046-TC-FY; 80053; 81003; 81015; 82962; 83036; 85027; 86593; 87389; 93005; 93010; 94640; J7620

== ENCOUNTER 2018-01-27 12:45 | Inpatient (IN) | payer OTHER ==
[2018-01-27 15:46] VITALS: BMI 47.1
--- NOTE | 2018-01-27 20:31 | HP ---
CIWA Score - CIWA Score Nausea/Vomitin-Mild Nausea/No Vomiting Muscle Tremors: 1-None Visible, but [place] Anxiety: 4-Mod. Anxious/Guarded Agitation: 4-Moderately Restless Paroxysmal Sweats: 3 Orientation: 0-Oriented Tacttile Disturbances: 0-None Auditory Disturbances: 0-None Visual Disturbances: 0-None Headache: 0-None Present CIWA-Ar Total Score: 13 Admission ROS S - HPI Chief Complaint: C/O WITHDRAWAL SX'S. SEEKING DETOX FOR ALCOHOLISM Allergies/Adverse Reactions: Allergies Allergy/AdvReac Type Severity Reaction Status Date / Time Sulfa (Sulfonamide Allergy Hives Verified 01/27/18 19:19 Antibiotics) History of Present Illness: 57 Y.O. FEMALE WITH HX/O ALCOHOLISM HERE FOR DETOX. CLIENT IS VERY WELL KNOWN TO THIS PROGRAM. LAST HERE 5 WEEKS AGO. STATES RELAPSING SOON AFTER DETOX. SELF REFERRED. REPORTS LONGEST CLEAN TIME 5 YEARS. DENIES HX/O SEIZURES BUT DOES REPORT BLACKOUTS. DENIES HX/O SI/HI Exam Limitations: No Limitations - Ebola screening Have you traveled outside of the country in the last 21 days: No Have you had contact with anyone from an Ebola affected area: No Have you been sick,other than usual withdrawal symptoms: No Do you have a fever: No - Review of Systems Constitutional: Chills, Loss of Appetite, Malaise, Night Sweats EENT: reports: No Symptoms Reported Respiratory: reports: Shortness of Breath, Wheezing, Other (ASTHMA) Cardiac: reports: No Symptoms Reported GI: reports: Diarrhea, Nausea, Poor Appetite, Vomiting : reports: No Symptoms Reported Musculoskeletal: reports: Back Pain Integumentary: reports: No Symptoms Reported Neuro: reports: No Symptoms reported Endocrine: reports: Other (HX/O DM) Hematology: reports: Other (ON BLODD THINNERS) Psychiatric: reports: No Sypmtoms Reported Other Systems: Reviewed and Negative Patient History - Patient Medical History Hx Anemia: No Hx Asthma: Yes Hx Chronic Obstructive Pulmonary Disease (COPD): Yes Hx Cancer: No Hx Cardiac Disorders: Yes (on meds ) Hx Congestive Heart Failure: Yes Hx Hypertension: Yes Hx Hypercholesterolemia: Yes (ON MEDS) Hx Pacemaker: No HX Cerebrovascular Accident: No Hx Seizures: No Hx Dementia: No Hx Diabetes: Yes (on meds , poor control) Hx Gastrointestinal Disorders: Yes (GERD) Hx Liver Disease: No Hx Genitourinary Disorders: No Hx Sexually Transmitted Disorders: No Hx Renal Disease (ESRD): No Hx Thyroid Disease: No Hx Human Immunodeficiency Virus (HIV): No (Last tested: 08/2016: NEGATIVE.) Hx Hepatitis C: No Hx Depression: Yes (grief reaction) Hx Suicide Attempt: No Hx Bipolar Disorder: No Hx Schizophrenia: No - Patient Surgical History Past Surgical History: Yes Hx Neurologic Surgery: No Hx Cataract Extraction: No Hx Cardiac Surgery: Yes (at age of 8yrs old ;'hole in my heart') Hx Lung Surgery: No Hx Breast Surgery: No Hx Breast Biopsy: No Hx Abdominal Surgery: No Hx Appendectomy: No Hx Cholecystectomy: No Hx Genitourinary Surgery: No Hx Section: No Hx Orthopedic Surgery: No Hx Hysterectomy: No Other Surgical History: Bunion Correction, Bilateral, 2015. Anesthesia Reaction: Yes (Cannot be under anasthesia for > 2 hour.) - PPD History Previous Implant?: Yes Documented Results: Positive w/o proof Implanted On Prior [facility] Admission?: No Date: 09/06/16 Results: NEG CXR 12/12/17 PPD to be Administered?: No - Reproductive History Patient is a Female of Child Bearing Age (11 -55 yrs old): Yes Last Menstrual Period: 05/25/17 Patient : No ([place] [facility] [place] - Smoking Cessation Smoking history: Former smoker Have you smoked in the past 12 months: No If you are a former smoker, when did you quit?: 20 yrs ago Cigars Per Day: 0 Hx Chewing Tobacco Use: No Initiated information on smoking cessation: No - Substance & Tx. History Hx Alcohol Use: Yes Hx Substance Use: Yes Substance Use Type: Alcohol, Cocaine Hx Substance Use Treatment: Yes ([facility]) - Substances Abused Alcohol Route: Oral Frequency: Daily Amount used: 5TH Age of first use: 37 Date of Last Use: 01/27/18 Cocaine Route: SNIFF Frequency: Daily Amount used: $400 Age of first use: 37 Date of Last Use: 01/27/18 Family Disease History - Family Disease History Family Disease History: Heart Disease: Father (, never knew), CA: Mother (, stomach Ca.), Other: Father, Brother (, Unknown Cause , 2 living brothers), Sister (four - living ) Admission Physical Exam [facility] - Vital Signs Vital Signs: Vital Signs - 24 hr 01/27/18 15:44 Temperature 97.6 F Pulse Rate 99 H Respiratory 18 Rate Blood Pressure 128/108 - Physical General Appearance: Yes: Appropriately Dressed, Obese, Tremorous HEENTM: Yes: EOMI, Normocephalic, Normal Voice, MAYLIN, Pharynx Normal, Other Respiratory: Yes: Chest Non-Tender, No Accessory Muscle Use, Wheezing Neck: Yes: No masses,lesions,Nodules, Supple, Trachea in good position Breast: Yes: Breast Exam Deferred Cardiology: Yes: Regular Rhythm, Regular Rate, S1, S2 Abdominal: Yes: Non Tender, Protuberent, Distended Genitourinary: Yes: Within Normal Limits, Other (NO C/O) Back: Yes: Within Normal Limits Musculoskeletal: Yes: full range of Motion, Gait Steady Extremities: Yes: Normal Range of Motion, Non-Tender, Tremors Neurological: Yes: paving bed maker II-XII NML intact, Fully Oriented, Alert, Motor Strength 5/5 Integumentary: Yes: Dry, Warm, Pitting Edema Lymphatic: Yes: Within Normal Limits - Diagnostic (1) Hypercholesteremia Current Visit: Yes Status: Chronic (2) Alcohol dependence with uncomplicated withdrawal Current Visit: Yes Status: Acute (3) Cocaine dependence, uncomplicated Current Visit: Yes Status: Chronic (4) Asthma Current Visit: Yes Status: Chronic Qualifiers: Asthma severity: moderate Asthma persistence: persistent Asthma complication type: uncomplicated Qualified Code(s): J45.40 - Moderate persistent asthma, uncomplicated (5) CHF (congestive heart failure) Current Visit: Yes Status: Chronic Qualifiers: Heart failure type: other Qualified Code(s): I50.9 - Heart failure, unspecified (6) COPD with asthma Current Visit: Yes Status: Chronic (7) Diabetes mellitus, type II, insulin dependent Current Visit: Yes Status: Chronic (8) History of atrial fibrillation Current Visit: Yes Status: Chronic Comment: takes eliquis (9) Hypertension Current Visit: Yes Status: Chronic Qualifiers: Hypertension type: essential hypertension Qualified Code(s): I10 - Essential (primary) hypertension Comment: LISINOPRIL+METOPROLOL (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
[2018-01-27] MEDS ORDERED: ALBUTEROL SO4 8 GM HFA INHALER IH PRN (20:39)
[2018-01-27] MEDS ORDERED: MAGNESIUM HYDROX 2400MG/30ML ORAL SUSPENSION 30 ML CUP PO PRN (20:44)
[2018-01-27] MEDS ORDERED: chlordiazePOXIDE HCL 25 MG CAPSULE PO PRN (20:44)
[2018-01-27] MEDS ORDERED: MAG HYDROX/AL HYDROX/SIMETH 30 ML UNIT-DOSE CUP PO PRN (20:44)
[2018-01-27] MEDS ORDERED: IBUPROFEN 400 MG TABLET (FP) PO PRN (20:44)
[2018-01-27] MEDS ORDERED: guaiFENesin/D-METHORPHAN HB 10 ML UNIT-DOSE CUPS PO PRN (20:44)
[2018-01-27] MEDS ORDERED: MAGNESIUM CITRATE 300 ML BOTTLE PO PRN (20:44)
[2018-01-27] MEDS ORDERED: ACETAMINOPHEN 325 MG TABLET (FP) PO PRN (20:44)
[2018-01-27] MEDS ORDERED: P-EPHED 60MG/TRIPROLIDI 2.5MG TABLET PO PRN (20:44)
[2018-01-27] MEDS ORDERED: hydrOXYzine PAMOATE 50 MG CAPSULE (FP) PO PRN (20:44)
[2018-01-27] MEDS ORDERED: MENTHOL/PHENOL 1 EACH UD MM PRN (20:44)
[2018-01-27] MEDS ORDERED: LOPERAMIDE HCL 2 MG CAPSULE PO PRN (20:44)
[2018-01-27] MEDS ORDERED: MELATONIN 5 MG TABLETS PO PRN (22:00)
[2018-01-27] MEDS ORDERED: COLLOIDAL OATMEAL 1 BAR EACH TP PRN (22:51)
[2018-01-27] MEDS ORDERED: chlordiazePOXIDE HCL 25 MG CAPSULE PO SCH (23:00)
[2018-01-27] MEDS: THIAMINE HCL 100 MG TABLET (FP) PO SCH (23:01)
[2018-01-27] MEDS: ATORVASTATIN CA 40 MG TABLET (FP) PO SCH (23:01)
[2018-01-27] MEDS: dilTIAZem HCL 30 MG TABLET (FP) PO SCH (23:02)
[2018-01-27] MEDS: METOPROLOL TARTRATE 25 MG TABLET (FP) PO SCH (23:02)
[2018-01-27] MEDS: BUDESONIDE/FORMETEROL FUMARATE 80/4.5 mcg INHALER IH SCH (23:02)
[2018-01-27] MEDS: MONTELUKAST NA 10 MG TABLET PO SCH (23:02)
[2018-01-27] MEDS: HYDROCORTISONE 10 MG TABLET PO SCH (23:03)
[2018-01-27] MEDS: INSULIN (LEVEMIR) 100 UNITS/ML UNITS SQ SCH (23:03)
[2018-01-27] MEDS: APIXABAN 5 MG TABLET PO SCH (23:03)
[2018-01-27] MEDS ORDERED: ALBUTEROL SO4 2.5/IPRATROPIUM 0.5 INH SOL 3 ML VIAL.NEB. NEB PRN (23:23)
[2018-01-27] MEDS ORDERED: diazePAM 5 MG TABLET PO PRN (23:24)
[2018-01-27] MEDS ORDERED: diazePAM 5 MG TABLET PO ONE (23:30)
[2018-01-28] MEDS: diazePAM 5 MG TABLET PO SCH ×4 (00:01→22:50)
[2018-01-28] MEDS: dilTIAZem HCL 30 MG TABLET (FP) PO SCH ×3 (06:16→23:40)
[2018-01-28] MEDS ORDERED: INSULIN (NOVOLOG) ASPART 100 UNITS/ML 10ML VIAL ONE ×4 (07:47→22:41)
[2018-01-28] MEDS: INSULIN SLIDING SCALE (NOVOLOG) 1 VIAL SQ SCH ×3 (08:20→17:11)
[2018-01-28 10:37] LABS: RDW 14.7 % (11.6-15.6)
[2018-01-28 10:44] LABS: HEMATOCRIT 39.7 % (32.4-45.2); HEMOGLOBIN 13.1 GM/dL (10.7-15.3); MCH 29.3 pg (25.7-33.7); MEAN CELL VOLUME 88.9 fl (80-96); MEAN PLT VOLUME 9.5 fl (7.5-11.1); PLATELET COUNT 267 K/MM3 (134-434); RBC 4.47 M/mm3 (3.60-5.2); WHITE BLOOD COUNT 8.8 K/mm3 (4.0-10.0)
[2018-01-28 11:00] LABS: ALBUMIN 3.5 g/dl (3.4-5.0); ANION GAP 8 (8-16); BILIRUBIN,TOTAL 0.4 mg/dL (0.2-1.0); BLOOD UREA NITROGEN 12 mg/dL (7-18); CALCIUM 8.8 mg/dL (8.5-10.1); CHLORIDE 107 mmol/L (98-107); CO2 28 mmol/L (21-32); CREATININE 0.8 mg/dL (0.55-1.02); GLUCOSE,RANDOM 288 mg/dL (74-106); POTASSIUM 4.4 mmol/L (3.5-5.1); SGOT/AST 17 U/L (15-37); SGPT/ALT 37 U/L (12-78); SODIUM 143 mmol/L (136-145); TOT PROT 6.4 g/dl (6.4-8.2)
[2018-01-28 11:01] LABS: ALK PHOS 98 U/L (45-117)
[2018-01-28] MEDS: PRENATAL VITAMINS W/ FOLIC ACID TABLET (FP) PO SCH (11:15)
[2018-01-28] MEDS: HYDROCHLOROTHIAZIDE 25 MG TABLET (FP) PO SCH (11:15)
[2018-01-28] MEDS: HYDROCORTISONE 10 MG TABLET PO SCH ×2 (11:16→22:52)
[2018-01-28] MEDS: LISINOPRIL 20 MG TABLET (FP) PO SCH (11:16)
--- NOTE | 2018-01-28 11:17 | CONSULT ---
[facility] Psychiatric Consult - Data Date of interview: 01/28/18 Admission source: [facility] Identifying data: Community Relations Liaison approached patient for psychiatric consultation. Pt. refused. Pt. stated, " I don't need to see you." Nursing staff informed.
[2018-01-28] MEDS: BUDESONIDE/FORMETEROL FUMARATE 80/4.5 mcg INHALER IH SCH ×2 (11:27→22:46)
[2018-01-28] MEDS: APIXABAN 5 MG TABLET PO SCH ×2 (11:46→22:51)
--- NOTE | 2018-01-28 21:49 | PN ---
[facility] CIWA - CIWA Score Nausea/Vomitin Muscle Tremors: 3 Anxiety: 4-Mod. Anxious/Guarded Agitation: 5 Paroxysmal Sweats: 3 Orientation: 0-Oriented Tacttile Disturbances: 0-None Auditory Disturbances: 0-None Visual Disturbances: 0-None Headache: 0-None Present CIWA-Ar Total Score: 17 S Progress Note (SOAP) Subjective: Sleep disturbance Sweats Shakes Objective: 01/28/18 21:46 A & O x 3 Agitated Vital Signs Temperature 98.6 F 01/28/18 17:59 Pulse Rate 86 01/28/18 17:59 Respiratory Rate 18 01/28/18 17:59 Blood Pressure 116/68 01/28/18 17:59 O2 Sat by Pulse Oximetry (%) Laboratory Last Values WBC 8.8 K/mm3 (4.0-10.0) 01/28/18 07:40 RBC 4.47 M/mm3 (3.60-5.2) 01/28/18 07:40 Hgb 13.1 GM/dL (10.7-15.3) 01/28/18 07:40 Hct 39.7 % (32.4-45.2) 01/28/18 07:40 MCV 88.9 fl (80-96) 01/28/18 07:40 MCH 29.3 pg (25.7-33.7) 01/28/18 07:40 MCHC 33.0 g/dl (32.0-36.0) 01/28/18 07:40 RDW 14.7 % (11.6-15.6) 01/28/18 07:40 Plt Count 267 K/MM3 (134-434) 01/28/18 07:40 MPV 9.5 fl (7.5-11.1) 01/28/18 07:40 Sodium 143 mmol/L (136-145) 01/28/18 07:40 Potassium 4.4 mmol/L (3.5-5.1) 01/28/18 07:40 Chloride 107 mmol/L (98-107) 01/28/18 07:40 Carbon Dioxide 28 mmol/L (21-32) 01/28/18 07:40 Anion Gap 8 (8-16) 01/28/18 07:40 BUN 12 mg/dL (7-18) 01/28/18 07:40 Creatinine 0.8 mg/dL (0.55-1.02) 01/28/18 07:40 Creat Clearance w eGFR > 60 (>60) 01/28/18 07:40 POC Glucometer 347 UNITS (80-120) 01/28/18 11:21 Random Glucose 288 mg/dL (74-106) H 01/28/18 07:40 Calcium 8.8 mg/dL (8.5-10.1) 01/28/18 07:40 Total Bilirubin 0.4 mg/dL (0.2-1.0) 01/28/18 07:40 AST 17 U/L (15-37) 01/28/18 07:40 ALT 37 U/L (12-78) 01/28/18 07:40 Alkaline Phosphatase 98 U/L (45-117) 01/28/18 07:40 Total Protein 6.4 g/dl (6.4-8.2) 01/28/18 07:40 Albumin 3.5 g/dl (3.4-5.0) 01/28/18 07:40 RPR Titer Nonreactive (NONREACTIVE) 01/28/18 07:40 labs noted, High blood glucose UA pending Assessment: 01/28/18 21:49 withdrawal sx Hyperglycemia Plan: continue detox Increase water intake Continue with anti-hyperglycemic agents ordered Continued education on diet/lifestyle modification continue BG monitoring
[2018-01-28] MEDS: ATORVASTATIN CA 40 MG TABLET (FP) PO SCH (22:49)
[2018-01-28] MEDS: METOPROLOL TARTRATE 25 MG TABLET (FP) PO SCH (22:49)
[2018-01-28] MEDS: INSULIN (LEVEMIR) 100 UNITS/ML UNITS SQ SCH (22:51)
[2018-01-28] MEDS ORDERED: chlordiazePOXIDE HCL 25 MG CAPSULE PO SCH (23:00)
[2018-01-28] MEDS: THIAMINE HCL 100 MG TABLET (FP) PO SCH (23:40)
[2018-01-28] MEDS: MONTELUKAST NA 10 MG TABLET PO SCH (23:40)
[2018-01-29] MEDS: dilTIAZem HCL 30 MG TABLET (FP) PO SCH ×3 (07:43→23:09)
[2018-01-29] MEDS ORDERED: INSULIN (NOVOLOG) ASPART 100 UNITS/ML 10ML VIAL ONE ×2 (07:58→12:22)
--- NOTE | 2018-01-29 08:58 | EKG ---
Test Reason : Blood Pressure : / mmHG Vent. Rate : 101 BPM Atrial Rate : 101 BPM P-R Int : 162 ms QRS Dur : 082 ms QT Int : 368 ms P-R-T Axes : 077 -34 078 degrees QTc Int : 477 ms SINUS TACHYCARDIA WITH PREMATURE ATRIAL COMPLEXES LEFT AXIS DEVIATION ABNORMAL ECG WHEN COMPARED WITH ECG OF 10-DEC-2017 12:00, QRS AXIS SHIFTED LEFT Confirmed by MEETA PERALES, HUI ([id number]) on 01/29/2018 8:58:07 AM Referred By: Confirmed By:HUI TIM MD
[2018-01-29] MEDS: APIXABAN 5 MG TABLET PO SCH ×2 (10:47→23:09)
[2018-01-29] MEDS: diazePAM 5 MG TABLET PO SCH ×2 (10:47→23:10)
[2018-01-29] MEDS: PRENATAL VITAMINS W/ FOLIC ACID TABLET (FP) PO SCH (10:47)
[2018-01-29] MEDS: LISINOPRIL 20 MG TABLET (FP) PO SCH (10:48)
[2018-01-29] MEDS: BUDESONIDE/FORMETEROL FUMARATE 80/4.5 mcg INHALER IH SCH ×2 (10:48→23:10)
[2018-01-29] MEDS: HYDROCORTISONE 10 MG TABLET PO SCH ×2 (10:51→23:11)
[2018-01-29] MEDS: INSULIN SLIDING SCALE (NOVOLOG) 1 VIAL SQ SCH ×2 (11:00→17:55)
[2018-01-29] MEDS: HYDROCHLOROTHIAZIDE 25 MG TABLET (FP) PO SCH (14:22)
--- NOTE | 2018-01-29 15:00 | PN ---
[facility] CIWA - CIWA Score Nausea/Vomitin Muscle Tremors: 2 Anxiety: 3 Agitation: 3 Paroxysmal Sweats: 2 Orientation: 0-Oriented Tacttile Disturbances: 2-Mild Itch/Numbness/Burn Auditory Disturbances: 0-None Visual Disturbances: 0-None Headache: 2-Mild CIWA-Ar Total Score: 16 [facility] Progress Note (SOAP) Subjective: Diarrhea, irritability Objective: 01/29/18 14:55 Vital Signs 01/29/18 01/29/18 10:51 14:00 Temperature 98.1 F 99.0 F Pulse Rate 91 H 70 Respiratory 18 18 Rate Blood Pressure 129/55 138/69 Laboratory Last Values WBC 8.8 K/mm3 (4.0-10.0) 01/28/18 07:40 RBC 4.47 M/mm3 (3.60-5.2) 01/28/18 07:40 Hgb 13.1 GM/dL (10.7-15.3) 01/28/18 07:40 Hct 39.7 % (32.4-45.2) 01/28/18 07:40 MCV 88.9 fl (80-96) 01/28/18 07:40 MCH 29.3 pg (25.7-33.7) 01/28/18 07:40 MCHC 33.0 g/dl (32.0-36.0) 01/28/18 07:40 RDW 14.7 % (11.6-15.6) 01/28/18 07:40 Plt Count 267 K/MM3 (134-434) 01/28/18 07:40 MPV 9.5 fl (7.5-11.1) 01/28/18 07:40 Sodium 143 mmol/L (136-145) 01/28/18 07:40 Potassium 4.4 mmol/L (3.5-5.1) 01/28/18 07:40 Chloride 107 mmol/L (98-107) 01/28/18 07:40 Carbon Dioxide 28 mmol/L (21-32) 01/28/18 07:40 Anion Gap 8 (8-16) 01/28/18 07:40 BUN 12 mg/dL (7-18) 01/28/18 07:40 Creatinine 0.8 mg/dL (0.55-1.02) 01/28/18 07:40 Creat Clearance w eGFR > 60 (>60) 01/28/18 07:40 POC Glucometer 401 UNITS (80-120) 01/29/18 11:13 Random Glucose 288 mg/dL (74-106) H 01/28/18 07:40 Calcium 8.8 mg/dL (8.5-10.1) 01/28/18 07:40 Total Bilirubin 0.4 mg/dL (0.2-1.0) 01/28/18 07:40 AST 17 U/L (15-37) 01/28/18 07:40 ALT 37 U/L (12-78) 01/28/18 07:40 Alkaline Phosphatase 98 U/L (45-117) 01/28/18 07:40 Total Protein 6.4 g/dl (6.4-8.2) 01/28/18 07:40 Albumin 3.5 g/dl (3.4-5.0) 01/28/18 07:40 RPR Titer Nonreactive (NONREACTIVE) 01/28/18 07:40 Labs noted Elevated capillary blood glucose levels, patient requesting mealtime insulin to be dosed same as home dose; 25 units with meals. Patient angry at staff for not giving her correct dose Assessment: 01/29/18 14:57 Withdrawal sx Hyperglycemia Plan: Continue detox Patient education on potential for hypoglycemia with the dose she is requesting for. Patient oriented on diet regimen in house which could be very different from home diet. Patient not receptive to teaching, calling check writer names such as inefficient. Will continue current regimen of sliding scale as well as 50 units basal insulin HS- 12 units of insulin given at lunch time.
[2018-01-29] MEDS ORDERED: chlordiazePOXIDE 5 MG CAPSULE PO SCH (23:00)
[2018-01-29] MEDS: METOPROLOL TARTRATE 25 MG TABLET (FP) PO SCH (23:09)
[2018-01-29] MEDS: MONTELUKAST NA 10 MG TABLET PO SCH (23:09)
[2018-01-29] MEDS: THIAMINE HCL 100 MG TABLET (FP) PO SCH (23:09)
[2018-01-29] MEDS: INSULIN (LEVEMIR) 100 UNITS/ML UNITS SQ SCH (23:10)
[2018-01-29] MEDS: ATORVASTATIN CA 40 MG TABLET (FP) PO SCH (23:11)
[2018-01-30] MEDS: dilTIAZem HCL 30 MG TABLET (FP) PO SCH ×2 (06:21→15:05)
[2018-01-30] MEDS ORDERED: INSULIN (NOVOLOG) ASPART 100 UNITS/ML 10ML VIAL ONE ×2 (07:51→11:48)
[2018-01-30] MEDS: INSULIN SLIDING SCALE (NOVOLOG) 1 VIAL SQ SCH ×2 (07:56→11:49)
[2018-01-30] MEDS: APIXABAN 5 MG TABLET PO SCH (10:19)
[2018-01-30] MEDS: diazePAM 5 MG TABLET PO SCH (10:19)
[2018-01-30] MEDS: LISINOPRIL 20 MG TABLET (FP) PO SCH (10:19)
[2018-01-30] MEDS: PRENATAL VITAMINS W/ FOLIC ACID TABLET (FP) PO SCH (10:19)
[2018-01-30] MEDS: BUDESONIDE/FORMETEROL FUMARATE 80/4.5 mcg INHALER IH SCH (10:19)
[2018-01-30] MEDS: HYDROCHLOROTHIAZIDE 25 MG TABLET (FP) PO SCH (10:19)
[2018-01-30] MEDS: HYDROCORTISONE 10 MG TABLET PO SCH (10:23)
--- NOTE | 2018-01-30 11:58 | PN ---
[facility] Progress Note (SOAP) Subjective: alert,no complaint Objective: 01/30/18 11:56 Vital Signs Temperature 98.2 F 01/30/18 10:41 Pulse Rate 83 01/30/18 10:41 Respiratory Rate 20 01/30/18 10:41 Blood Pressure 126/74 01/30/18 10:41 O2 Sat by Pulse Oximetry (%) Assessment: 01/30/18 11:56 patient is stable for discharge today Plan: discharge today,follow up [facility] as arrangement
--- NOTE | 2018-01-30 12:02 | DS ---
[facility] Detox Discharge Summary Admission Date: 01/27/18 Discharge Date: 01/30/18 - History Present History: Alcohol Dependence, Cocaine Dependence Pertinent Past History: asthma copd hypercholesterolemia type 2 dm history of atrial fibrillation hypertension positive ppd - Physical Exam Results Vital Signs: Vital Signs Temperature 98.2 F 01/30/18 10:41 Pulse Rate 83 01/30/18 10:41 Respiratory Rate 20 01/30/18 10:41 Blood Pressure 126/74 01/30/18 10:41 O2 Sat by Pulse Oximetry (%) Pertinent Admission Physical Exam Findings: withdrawal signs and symptom Laboratory Last Values WBC 8.8 K/mm3 (4.0-10.0) 01/28/18 07:40 RBC 4.47 M/mm3 (3.60-5.2) 01/28/18 07:40 Hgb 13.1 GM/dL (10.7-15.3) 01/28/18 07:40 Hct 39.7 % (32.4-45.2) 01/28/18 07:40 MCV 88.9 fl (80-96) 01/28/18 07:40 MCH 29.3 pg (25.7-33.7) 01/28/18 07:40 MCHC 33.0 g/dl (32.0-36.0) 01/28/18 07:40 RDW 14.7 % (11.6-15.6) 01/28/18 07:40 Plt Count 267 K/MM3 (134-434) 01/28/18 07:40 MPV 9.5 fl (7.5-11.1) 01/28/18 07:40 Sodium 143 mmol/L (136-145) 01/28/18 07:40 Potassium 4.4 mmol/L (3.5-5.1) 01/28/18 07:40 Chloride 107 mmol/L (98-107) 01/28/18 07:40 Carbon Dioxide 28 mmol/L (21-32) 01/28/18 07:40 Anion Gap 8 (8-16) 01/28/18 07:40 BUN 12 mg/dL (7-18) 01/28/18 07:40 Creatinine 0.8 mg/dL (0.55-1.02) 01/28/18 07:40 Creat Clearance w eGFR > 60 (>60) 01/28/18 07:40 POC Glucometer 349 UNITS (80-120) 01/30/18 06:16 Random Glucose 288 mg/dL (74-106) H 01/28/18 07:40 Calcium 8.8 mg/dL (8.5-10.1) 01/28/18 07:40 Total Bilirubin 0.4 mg/dL (0.2-1.0) 01/28/18 07:40 AST 17 U/L (15-37) 01/28/18 07:40 ALT 37 U/L (12-78) 01/28/18 07:40 Alkaline Phosphatase 98 U/L (45-117) 01/28/18 07:40 Total Protein 6.4 g/dl (6.4-8.2) 01/28/18 07:40 Albumin 3.5 g/dl (3.4-5.0) 01/28/18 07:40 RPR Titer Nonreactive (NONREACTIVE) 01/28/18 07:40 Vital Signs Temperature 98.2 F 01/30/18 10:41 Pulse Rate 83 01/30/18 10:41 Respiratory Rate 20 01/30/18 10:41 Blood Pressure 126/74 01/30/18 10:41 O2 Sat by Pulse Oximetry (%) - Treatment Hospital Course: Detox Protocol Followed, Detoxed Safely, Responded well, Discharged Condition Good, Rehab Referral Accepted Patient has Accepted a Rehab Referral to: [facility] - Medication Discharge Medications: Ambulatory Orders Fluticasone/Salmeterol [Advair 250-50 Diskus] 1 each IH BID #1 disk.w.dev Albuterol Sulfate Inhaler - [Ventolin HFA Inhaler -] 2 inh PO Q4H PRN #1 inh Apixaban [Eliquis -] 5 mg PO Q12H #30 tablet 07/07/17 Atorvastatin Ca [Lipitor] 40 mg PO HS #30 tablet 07/07/17 Insulin (Novolog) [Novolog Flexpen -] 25 units SQ ACBK 30 Days pen 07/07/17 Insulin Glargine,Hum.rec.anlog [Lantus Solostar PEN -] 50 units SQ HS 30 Days # 1 ins 07/07/17 Lisinopril [Prinivil] 20 mg PO DAILY #30 tablet 07/07/17 Metoprolol Tartrate [Lopressor -] 25 mg PO HS #30 tablet 07/07/17 Montelukast Na [Singulair -] 10 mg PO HS #30 tablet 07/07/17 Budesonide/Formeterol Fumarate [SYMBICORT 80/4.5mcg -] 1 inh PO BID 12/10/17 Hydrocortisone [Cortef -] 15 mg PO HS 12/10/17 Hydrocortisone [Cortef -] 25 mg PO DAILY 12/10/17 Diltiazem [Cardizem -] 30 mg PO TID 12/11/17 Furosemide [Lasix -] 40 mg PO DAILY 12/11/17 Ammonium Lactate Lotion [Lac-Hydrin 12] 1 applic TP DAILY PRN bottle 12/14/17 Hydrochlorothiazide [Hctz -] 25 mg PO DAILY tablet 12/14/17 Insulin (Levemir) [Levemir Vial] 50 units SQ HS units 12/14/17 Insulin Sliding Scale [Novolog Vial Sliding Scale -] 1 vial SQ ACHS units 12/14 - Diagnosis (1) Alcohol dependence with uncomplicated withdrawal Current Visit: Yes Status: Acute (2) Asthma Current Visit: Yes Status: Chronic Qualifiers: Asthma severity: moderate Asthma persistence: persistent Asthma complication type: uncomplicated Qualified Code(s): J45.40 - Moderate persistent asthma, uncomplicated (3) Cocaine dependence, uncomplicated Current Visit: Yes Status: Chronic (4) Diabetes mellitus, type II, insulin dependent Current Visit: Yes Status: Chronic (5) History of atrial fibrillation Current Visit: Yes Status: Chronic (6) Hypercholesteremia Current Visit: Yes Status: Chronic (7) Hypertension Current Visit: Yes Status: Chronic Qualifiers: Hypertension type: essential hypertension Qualified Code(s): I10 - Essential (primary) hypertension (8) Positive PPD, treated Current Visit: Yes Status: Chronic (9) Cocaine dependence Current Visit: No Status: Acute Qualifiers: Substance use status: uncomplicated Qualified Code(s): F14.20 - Cocaine dependence, uncomplicated - AMA Did Patient Leave Against Medical Advice: No
[2018-01-30 15:53] VITALS: BP 132/88; PULSE 88; TEMP 97.9
[2018-01-30] MEDS ORDERED: INSULIN (NOVOLOG) ASPART 100 UNITS/ML 10ML VIAL SQ SCH (16:30)
[2018-01-30] MEDS ORDERED: chlordiazePOXIDE HCL 10 MG CAPSULE PO SCH (23:00)
[2018-01-31] MEDS ORDERED: HYDROCORTISONE 20 MG, HYDROCORTISONE 5 MG PO SCH (10:00)
[2018-01-31] MEDS ORDERED: diazePAM 5 MG TABLET PO SCH (10:00)
== END 2018-01-30 17:51 | disposition other institution (70) | DRG 774 ==
LOC: YASAS 12:45 → Y6N 18:20
PROVIDERS: ADMIT Surgery; ATTEND Surgery
PROC: HZ2ZZZZ Detoxification Services for Substance Abuse Treatment (ICD-10-PCS; principal; 2018-01-27)
DX: F10.230 Alcohol dependence with withdrawal, uncomplicated (principal); F14.20 Cocaine dependence, uncomplicated; J45.40 Moderate persistent asthma, uncomplicated; J44.9 Chronic obstructive pulmonary disease, unspecified; E11.65 Type 2 diabetes mellitus with hyperglycemia; I48.91 Unspecified atrial fibrillation; E78.00 Pure hypercholesterolemia, unspecified; I10 Essential (primary) hypertension; I50.9 Heart failure, unspecified; R76.11 Nonspecific reaction to tuberculin skin test without active tuberculosis; K21.9 Gastro-esophageal reflux disease without esophagitis; E66.9 Obesity, unspecified; Z68.42 Body mass index [BMI] 45.0-49.9, adult; Z87.891 Personal history of nicotine dependence; Z79.4 Long term (current) use of insulin; Z88.2 Allergy status to sulfonamides
CPT/HCPCS: 36415; 80053; 82962; 85027; 86593; 93005; 93010

== ENCOUNTER 2018-01-30 18:01 | Inpatient (IN) | payer OTHER ==
[2018-01-30] MEDS ORDERED: ALBUTEROL SO4 8 GM HFA INHALER IH PRN (19:24)
[2018-01-30] MEDS ORDERED: AMMONIUM LACTATE 12% LOTION 225 GM BOTTLE TP PRN (19:24)
[2018-01-30] MEDS ORDERED: ALBUTEROL SO4 2.5/IPRATROPIUM 0.5 INH SOL 3 ML VIAL.NEB. NEB PRN (19:24)
[2018-01-30] MEDS ORDERED: MAG HYDROX/AL HYDROX/SIMETH 30 ML UNIT-DOSE CUP PO PRN (19:42)
[2018-01-30] MEDS ORDERED: LOPERAMIDE HCL 2 MG CAPSULE PO PRN (19:42)
[2018-01-30] MEDS ORDERED: MENTHOL/PHENOL 1 EACH UD MM PRN (19:42)
[2018-01-30] MEDS ORDERED: MAGNESIUM HYDROX 2400MG/30ML ORAL SUSPENSION 30 ML CUP PO PRN (19:42)
[2018-01-30] MEDS ORDERED: guaiFENesin/D-METHORPHAN HB 10 ML UNIT-DOSE CUPS PO PRN (19:42)
[2018-01-30] MEDS ORDERED: P-EPHED 60MG/TRIPROLIDI 2.5MG TABLET PO PRN (19:42)
[2018-01-30] MEDS ORDERED: MAGNESIUM CITRATE 300 ML BOTTLE PO PRN (19:42)
--- NOTE | 2018-01-30 19:43 | HP ---
LA[facility] PERALES Rehab Assess/Revision - Admission History Admitted to Rehab from: [facility] [place] Date of Admission to Rehab: 01/30/18 - Findings Detox History & Physical reviewed: Yes Concur with findings: Yes Inpatient Rehab Admission - Initial Determination Are CD services needed?: Yes Free of communicable disease: Yes Not in need of hospitalization: Yes - Rehab Admission Criteria Previous failed treatment: Yes Poor recovery environment: Yes Comorbidities: Yes Lacks judgement: Yes Patient is meeting Inpatient Rehab admission criteria:: Yes
[2018-01-30 19:44] VITALS: BMI 47.1
[2018-01-30] MEDS: dilTIAZem HCL 30 MG TABLET (FP) PO SCH (21:10)
[2018-01-30] MEDS: ATORVASTATIN CA 40 MG TABLET (FP) PO SCH (21:11)
[2018-01-30] MEDS: MONTELUKAST NA 10 MG TABLET PO SCH (21:11)
[2018-01-30] MEDS: METOPROLOL TARTRATE 25 MG TABLET (FP) PO SCH (21:11)
[2018-01-30] MEDS: APIXABAN 5 MG TABLET PO SCH (21:11)
[2018-01-30] MEDS: BUDESONIDE/FORMETEROL FUMARATE 80/4.5 mcg INHALER IH SCH (21:12)
[2018-01-30] MEDS: THIAMINE HCL 100 MG TABLET (FP) PO SCH (21:13)
[2018-01-30] MEDS: INSULIN (LEVEMIR) 100 UNITS/ML UNITS SQ SCH (21:14)
[2018-01-30] MEDS: HYDROCORTISONE 10 MG TABLET PO SCH (22:00)
[2018-01-30] MEDS ORDERED: MELATONIN 5 MG TABLETS PO PRN (22:00)
[2018-01-31] MEDS: dilTIAZem HCL 30 MG TABLET (FP) PO SCH ×3 (06:28→21:03)
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
[2018-01-31] MEDS ORDERED: INSULIN SLIDING SCALE (NOVOLOG) 1 VIAL SQ SCH (07:00)
[2018-01-31] MEDS ORDERED: INSULIN (NOVOLOG) ASPART 100 UNITS/ML 10ML VIAL SQ ONE (07:21)
--- NOTE | 2018-01-31 07:25 | PN ---
[facility] Progress Note Note: bgm 338,patient is on insulin coverage to give novolog 15 units now and before each meal,also on levemir 50 units hs,close monitoring of bgm achs
[2018-01-31] MEDS ORDERED: PT OWN MED DRAWER 7, Y5N ONE ×3 (09:21→19:46)
[2018-01-31] MEDS: LISINOPRIL 20 MG TABLET (FP) PO SCH (10:01)
[2018-01-31] MEDS: PRENATAL VITAMINS W/ FOLIC ACID TABLET (FP) PO SCH (10:01)
[2018-01-31] MEDS: FUROSEMIDE 40 MG TABLET (FP) PO SCH (10:01)
[2018-01-31] MEDS: HYDROCHLOROTHIAZIDE 25 MG TABLET (FP) PO SCH (10:01)
[2018-01-31] MEDS: APIXABAN 5 MG TABLET PO SCH ×2 (10:01→21:03)
[2018-01-31] MEDS: BUDESONIDE/FORMETEROL FUMARATE 80/4.5 mcg INHALER IH SCH ×2 (10:01→21:04)
[2018-01-31] MEDS: HYDROCORTISONE 10 MG TABLET PO SCH ×2 (10:05→21:04)
[2018-01-31] MEDS ORDERED: INSULIN (NOVOLOG) ASPART 100 UNITS/ML 10ML VIAL ONE ×2 (11:39→17:07)
[2018-01-31] MEDS: INSULIN (NOVOLOG) ASPART 100 UNITS/ML 10ML VIAL SQ SCH ×2 (11:41→17:07)
[2018-01-31] MEDS: INSULIN (LEVEMIR) 100 UNITS/ML UNITS SQ SCH (21:01)
[2018-01-31] MEDS: METOPROLOL TARTRATE 25 MG TABLET (FP) PO SCH (21:03)
[2018-01-31] MEDS: MONTELUKAST NA 10 MG TABLET PO SCH (21:03)
[2018-01-31] MEDS: ATORVASTATIN CA 40 MG TABLET (FP) PO SCH (21:03)
[2018-01-31] MEDS: THIAMINE HCL 100 MG TABLET (FP) PO SCH (21:04)
[2018-02-01] MEDS: dilTIAZem HCL 30 MG TABLET (FP) PO SCH ×3 (06:34→22:04)
[2018-02-01] MEDS: INSULIN (NOVOLOG) ASPART 100 UNITS/ML 10ML VIAL SQ SCH ×3 (06:35→17:02)
[2018-02-01] MEDS ORDERED: PT OWN MED DRAWER 7, Y5N ONE ×3 (08:56→19:16)
[2018-02-01] MEDS: PRENATAL VITAMINS W/ FOLIC ACID TABLET (FP) PO SCH (09:54)
[2018-02-01] MEDS: BUDESONIDE/FORMETEROL FUMARATE 80/4.5 mcg INHALER IH SCH ×2 (09:54→21:17)
[2018-02-01] MEDS: FUROSEMIDE 40 MG TABLET (FP) PO SCH (09:54)
[2018-02-01] MEDS: LISINOPRIL 20 MG TABLET (FP) PO SCH (09:55)
[2018-02-01] MEDS: APIXABAN 5 MG TABLET PO SCH ×2 (09:55→21:18)
[2018-02-01] MEDS: HYDROCHLOROTHIAZIDE 25 MG TABLET (FP) PO SCH (09:55)
[2018-02-01] MEDS: HYDROCORTISONE 10 MG TABLET PO SCH ×2 (09:57→21:19)
[2018-02-01] MEDS ORDERED: INSULIN (NOVOLOG) ASPART 100 UNITS/ML 10ML VIAL ONE ×3 (11:50→21:12)
--- NOTE | 2018-02-01 15:19 | PN ---
[facility] Progress Note Note: PATIENT SEEN FOR C/O DRY SKIN, VAGINAL ITCHING AND WHITE DISCHARGE AND ELEVATED BLOOD SUGAR. DENIES NAUSEA, DIZZINESS, CHEST PAIN AND SOB. Laboratory Tests 01/30/18 01/31/18 01/31/18 21:08 06:27 11:36 POC Glucometer 343 338 335 01/31/18 02/01/18 02/01/18 20:58 06:33 11:47 POC Glucometer 468 343 421 Laboratory Tests 01/30/18 01/31/18 01/31/18 21:08 06:27 11:36 POC Glucometer 343 338 335 01/31/18 02/01/18 02/01/18 20:58 06:33 11:47 POC Glucometer 468 343 421 Vital Signs Temperature 98 F 02/01/18 06:54 Pulse Rate 95 H 02/01/18 10:00 Respiratory Rate 18 02/01/18 10:00 Blood Pressure 118/58 02/01/18 10:00 O2 Sat by Pulse Oximetry (%) PE: GENERAL: ALERT AND ORIENTED X 3. IN NAD SKIN: WARM AND DRY. NEURO: CN 1-X11 GROSSLY INTACT EXT: + TRACE EDEMA, FULL ROM. A/P: DRY SKIN ELEVATED BLOOD SUGAR/DM VAGINITIS/YEAST INFECTION AMMONIA LACTATE LOTION ORDERED ADD SLIDING SCALE TO REGIMEN CONTINUE CURRENT STANDING INSULIN ORDERS METROGEL ONE APPLICATOR HS X 5 DAYS CONTINUE TO MONITOR CLINICALLY.
[2018-02-01] MEDS: ACETAMINOPHEN 325 MG TABLET (FP) PO PRN (16:00)
[2018-02-01] MEDS: INSULIN SLIDING SCALE (NOVOLOG) 1 VIAL SQ SCH ×2 (17:03→21:14)
[2018-02-01] MEDS: INSULIN (LEVEMIR) 100 UNITS/ML UNITS SQ SCH (21:16)
[2018-02-01] MEDS: THIAMINE HCL 100 MG TABLET (FP) PO SCH (21:17)
[2018-02-01] MEDS: MONTELUKAST NA 10 MG TABLET PO SCH (21:18)
[2018-02-01] MEDS: metroNIDAZOLE 0.75% VAGINAL GEL 70 GM TUBE VG SCH (21:19)
[2018-02-01] MEDS: METOPROLOL TARTRATE 25 MG TABLET (FP) PO SCH (22:03)
[2018-02-01] MEDS: ATORVASTATIN CA 40 MG TABLET (FP) PO SCH (22:04)
[2018-02-02] MEDS: dilTIAZem HCL 30 MG TABLET (FP) PO SCH ×3 (06:27→21:15)
[2018-02-02] MEDS: INSULIN SLIDING SCALE (NOVOLOG) 1 VIAL SQ SCH ×4 (06:31→21:19)
[2018-02-02] MEDS: INSULIN (NOVOLOG) ASPART 100 UNITS/ML 10ML VIAL SQ SCH ×3 (06:31→16:54)
[2018-02-02] MEDS ORDERED: PT OWN MED DRAWER 7, Y5N ONE ×3 (09:06→20:49)
[2018-02-02] MEDS: BUDESONIDE/FORMETEROL FUMARATE 80/4.5 mcg INHALER IH SCH ×2 (10:09→21:19)
[2018-02-02] MEDS: LISINOPRIL 20 MG TABLET (FP) PO SCH (10:10)
[2018-02-02] MEDS: HYDROCORTISONE 10 MG TABLET PO SCH ×2 (10:10→21:18)
[2018-02-02] MEDS: PRENATAL VITAMINS W/ FOLIC ACID TABLET (FP) PO SCH (10:10)
[2018-02-02] MEDS: HYDROCHLOROTHIAZIDE 25 MG TABLET (FP) PO SCH (10:10)
[2018-02-02] MEDS: FUROSEMIDE 40 MG TABLET (FP) PO SCH (10:10)
[2018-02-02] MEDS: COLLOIDAL OATMEAL 1 BAR EACH TP SCH (10:10)
[2018-02-02] MEDS: APIXABAN 5 MG TABLET PO SCH ×2 (10:10→21:14)
[2018-02-02] MEDS: THIAMINE HCL 100 MG TABLET (FP) PO SCH (21:14)
[2018-02-02] MEDS: ATORVASTATIN CA 40 MG TABLET (FP) PO SCH (21:14)
[2018-02-02] MEDS: METOPROLOL TARTRATE 25 MG TABLET (FP) PO SCH (21:15)
[2018-02-02] MEDS: MONTELUKAST NA 10 MG TABLET PO SCH (21:15)
[2018-02-02] MEDS: metroNIDAZOLE 0.75% VAGINAL GEL 70 GM TUBE VG SCH (21:18)
[2018-02-02] MEDS: INSULIN (LEVEMIR) 100 UNITS/ML UNITS SQ SCH (21:18)
[2018-02-02] MEDS ORDERED: INSULIN (NOVOLOG) ASPART 100 UNITS/ML 10ML VIAL ONE (21:50)
[2018-02-03] MEDS: dilTIAZem HCL 30 MG TABLET (FP) PO SCH ×3 (06:37→22:23)
[2018-02-03] MEDS: INSULIN SLIDING SCALE (NOVOLOG) 1 VIAL SQ SCH ×4 (07:55→22:25)
[2018-02-03] MEDS: INSULIN (NOVOLOG) ASPART 100 UNITS/ML 10ML VIAL SQ SCH ×3 (07:55→17:03)
[2018-02-03] MEDS ORDERED: INSULIN (NOVOLOG) ASPART 100 UNITS/ML 10ML VIAL ONE ×2 (07:57→11:37)
[2018-02-03] MEDS: FUROSEMIDE 40 MG TABLET (FP) PO SCH (09:39)
[2018-02-03] MEDS ORDERED: PT OWN MED DRAWER 7, Y5N ONE ×5 (09:39→20:48)
[2018-02-03] MEDS: PRENATAL VITAMINS W/ FOLIC ACID TABLET (FP) PO SCH (09:39)
[2018-02-03] MEDS: HYDROCHLOROTHIAZIDE 25 MG TABLET (FP) PO SCH (09:39)
[2018-02-03] MEDS: LISINOPRIL 20 MG TABLET (FP) PO SCH (09:39)
[2018-02-03] MEDS: ACETAMINOPHEN 325 MG TABLET (FP) PO PRN ×2 (09:40→15:58)
[2018-02-03] MEDS: APIXABAN 5 MG TABLET PO SCH ×2 (09:40→22:24)
[2018-02-03] MEDS: HYDROCORTISONE 10 MG TABLET PO SCH ×2 (09:41→22:24)
[2018-02-03] MEDS: BUDESONIDE/FORMETEROL FUMARATE 80/4.5 mcg INHALER IH SCH ×2 (09:43→22:31)
[2018-02-03] MEDS: COLLOIDAL OATMEAL 1 BAR EACH TP SCH (09:43)
[2018-02-03] MEDS ORDERED: INSULIN (LEVEMIR) 100 UNITS/ML UNITS SQ ONE (20:41)
[2018-02-03] MEDS: INSULIN (LEVEMIR) 100 UNITS/ML UNITS SQ SCH (21:39)
[2018-02-03] MEDS ORDERED: MICONAZOLE NITRATE 200 MG VAGINAL SUPPOSITORY PV SCH (22:00)
[2018-02-03] MEDS: MONTELUKAST NA 10 MG TABLET PO SCH (22:23)
[2018-02-03] MEDS: THIAMINE HCL 100 MG TABLET (FP) PO SCH (22:24)
[2018-02-03] MEDS: METOPROLOL TARTRATE 25 MG TABLET (FP) PO SCH (22:24)
[2018-02-03] MEDS: ATORVASTATIN CA 40 MG TABLET (FP) PO SCH (22:24)
--- NOTE | 2018-02-03 23:26 | PN ---
S Progress Note Note: Patient w/ elevated POC and refusing sliding scale insulin this evening for POC glucose of 370. Encouraged increased water intake, less juices, and compliance w / diet.
[2018-02-04] MEDS: dilTIAZem HCL 30 MG TABLET (FP) PO SCH ×3 (06:30→21:09)
[2018-02-04] MEDS: INSULIN (NOVOLOG) ASPART 100 UNITS/ML 10ML VIAL SQ SCH ×3 (07:46→16:45)
[2018-02-04] MEDS: INSULIN SLIDING SCALE (NOVOLOG) 1 VIAL SQ SCH ×4 (07:46→21:15)
[2018-02-04] MEDS ORDERED: INSULIN (NOVOLOG) ASPART 100 UNITS/ML 10ML VIAL ONE ×3 (07:48→21:15)
[2018-02-04] MEDS ORDERED: PT OWN MED DRAWER 7, Y5N ONE ×2 (08:39→09:58)
[2018-02-04] MEDS: HYDROCHLOROTHIAZIDE 25 MG TABLET (FP) PO SCH (09:53)
[2018-02-04] MEDS: FUROSEMIDE 40 MG TABLET (FP) PO SCH (09:53)
[2018-02-04] MEDS: APIXABAN 5 MG TABLET PO SCH ×2 (09:53→21:09)
[2018-02-04] MEDS: LISINOPRIL 20 MG TABLET (FP) PO SCH (09:53)
[2018-02-04] MEDS: PRENATAL VITAMINS W/ FOLIC ACID TABLET (FP) PO SCH (09:53)
[2018-02-04] MEDS: HYDROCORTISONE 10 MG TABLET PO SCH ×2 (09:54→21:10)
[2018-02-04] MEDS: COLLOIDAL OATMEAL 1 BAR EACH TP SCH (09:54)
[2018-02-04] MEDS: BUDESONIDE/FORMETEROL FUMARATE 80/4.5 mcg INHALER IH SCH ×2 (09:56→22:09)
[2018-02-04] MEDS: MONTELUKAST NA 10 MG TABLET PO SCH (21:09)
[2018-02-04] MEDS: ATORVASTATIN CA 40 MG TABLET (FP) PO SCH (21:09)
[2018-02-04] MEDS: METOPROLOL TARTRATE 25 MG TABLET (FP) PO SCH (21:09)
[2018-02-04] MEDS: THIAMINE HCL 100 MG TABLET (FP) PO SCH (21:09)
[2018-02-04] MEDS: MICONAZOLE NITRATE 2% VAGINAL CREAM 45 GM TUBE VG SCH (21:10)
[2018-02-04] MEDS: INSULIN (LEVEMIR) 100 UNITS/ML UNITS SQ SCH (22:11)
[2018-02-05] MEDS: dilTIAZem HCL 30 MG TABLET (FP) PO SCH ×3 (06:33→21:00)
[2018-02-05] MEDS ORDERED: INSULIN (NOVOLOG) ASPART 100 UNITS/ML 10ML VIAL ONE ×3 (07:11→21:07)
[2018-02-05] MEDS: INSULIN (NOVOLOG) ASPART 100 UNITS/ML 10ML VIAL SQ SCH ×3 (07:12→16:46)
[2018-02-05] MEDS: INSULIN SLIDING SCALE (NOVOLOG) 1 VIAL SQ SCH ×4 (07:13→21:07)
[2018-02-05] MEDS: APIXABAN 5 MG TABLET PO SCH ×2 (09:52→21:01)
[2018-02-05] MEDS: FUROSEMIDE 40 MG TABLET (FP) PO SCH (09:52)
[2018-02-05] MEDS: LISINOPRIL 20 MG TABLET (FP) PO SCH (09:52)
[2018-02-05] MEDS: PRENATAL VITAMINS W/ FOLIC ACID TABLET (FP) PO SCH (09:52)
[2018-02-05] MEDS: HYDROCHLOROTHIAZIDE 25 MG TABLET (FP) PO SCH (09:52)
[2018-02-05] MEDS ORDERED: PT OWN MED DRAWER 7, Y5N ONE ×2 (09:54→20:10)
[2018-02-05] MEDS: BUDESONIDE/FORMETEROL FUMARATE 80/4.5 mcg INHALER IH SCH ×2 (09:55→21:00)
[2018-02-05] MEDS: COLLOIDAL OATMEAL 1 BAR EACH TP SCH (10:43)
[2018-02-05] MEDS: HYDROCORTISONE 10 MG TABLET PO SCH ×2 (10:43→21:02)
[2018-02-05] MEDS: THIAMINE HCL 100 MG TABLET (FP) PO SCH (21:00)
[2018-02-05] MEDS: MICONAZOLE NITRATE 2% VAGINAL CREAM 45 GM TUBE VG SCH (21:00)
[2018-02-05] MEDS: MONTELUKAST NA 10 MG TABLET PO SCH (21:00)
[2018-02-05] MEDS: ATORVASTATIN CA 40 MG TABLET (FP) PO SCH (21:01)
[2018-02-05] MEDS: METOPROLOL TARTRATE 25 MG TABLET (FP) PO SCH (21:01)
[2018-02-05] MEDS: INSULIN (LEVEMIR) 100 UNITS/ML UNITS SQ SCH (21:08)
--- NOTE | 2018-02-06 06:26 | HP ---
Psychiatrist Admission - Data Vital Signs: Vital Signs - 24 hr 02/05/18 02/05/18 02/06/18 07:05 10:00 00:30 Temperature 98 F Pulse Rate 84 93 H Respiratory 20 16 Rate Blood Pressure 143/66 136/88 02/06/18 03:30 Temperature Pulse Rate Respiratory 16 Rate Blood Pressure Allergies/Adverse Reactions: Allergies Allergy/AdvReac Type Severity Reaction Status Date / Time Sulfa (Sulfonamide Allergy Hives Verified 01/27/18 19:19 Antibiotics) Psychiatric Findings - Problem List ([place] 1, 2,3) (1) Alcohol dependence Current Visit: Yes Status: Acute (2) Cocaine dependence Current Visit: No Status: Acute Qualifiers: Substance use status: uncomplicated Qualified Code(s): F14.20 - Cocaine dependence, uncomplicated (3) Substance induced mood disorder Current Visit: No Status: Acute (4) Substance-induced sleep disorder Current Visit: No Status: Acute (5) CHF (congestive heart failure) Current Visit: No Status: Chronic Qualifiers: Heart failure type: other Qualified Code(s): I50.9 - Heart failure, unspecified (6) COPD with asthma Current Visit: No Status: Chronic (7) Diabetes mellitus, type II, insulin dependent Current Visit: Yes Status: Chronic (8) Hypercholesteremia Current Visit: No Status: Chronic (9) Hypertension Current Visit: No Status: Chronic Qualifiers: Hypertension type: essential hypertension Qualified Code(s): I10 - Essential (primary) hypertension Comment: LISINOPRIL+METOPROLOL (10) Positive PPD, treated Current Visit: No Status: Suspected
--- NOTE | 2018-02-06 06:31 | PN ---
Psychiatric Progress Note Vital Signs: Vital Signs Period Temp Pulse Resp BP Sys/Kennedy Pulse Ox Last 24 Hr 98 F 84-93 16-20 136-143/66-88 Date of Session: 02/06/18 Chief Complaint:: Discharge Note HPI: Patient Addressing Alcohol and Cocaine Dependence comorbid with Substance- Induced Mood Disorder and Substance-Induced Sleep Disorder ROS: CHF, COPD with Asthma, type 2DM, HTN, HLD Current Medications: Active Medications Generic Name Dose Route Start Last Admin Trade Name Freq PRN Reason Stop Dose Admin Acetaminophen 650 mg 01/30/18 19:42 02/03/18 15:58 Tylenol - PO 650 mg Q4H PRN Administration FEVER Al Hydroxide/Mg Hydroxide 30 ml 01/30/18 19:42 01/31/18 16:00 Mylanta Oral Suspension - PO 30 ml Q6H PRN Administration DYSPEPSIA Albuterol Sulfate 2 puff 01/30/18 19:24 Ventolin Hfa Inhaler - IH Q4H PRN ASTHMA Albuterol/Ipratropium 1 amp 01/30/18 19:24 Duoneb - NEB Q6H PRN SHORTNESS OF BREATH Apixaban 5 mg 01/30/18 22:00 02/05/18 21:01 Eliquis - PO 5 mg BID [facility] Administration Atorvastatin Calcium 40 mg 01/30/18 22:00 02/05/18 21:01 Lipitor - PO 40 mg HS [facility] Administration Budesonide/Formoterol Fumarate 1 puff 01/30/18 22:00 02/05/18 21:00 Symbicort 80/4.5mcg - IH 1 puff BID [facility] Administration Colloidal Oatmeal 1 applic 02/02/18 10:00 02/05/18 10:43 Aveeno Soap - TP Not Given DAILY P[facility] Diltiazem HCl 30 mg 01/30/18 22:00 02/05/18 21:00 Cardizem - PO 30 mg TID [facility] Administration Eucalyptus/Menthol/Phenol/Sorbitol 1 each 01/30/18 19:42 Cepastat Lozenge - MM Q4H PRN SORE THROAT Furosemide 40 mg 01/31/18 10:00 02/05/18 09:52 Lasix - PO 40 mg DAILY [facility] Administration Guaifenesin 10 ml 01/30/18 19:42 Robitussin Dm - PO Q6H PRN COUGH Hydrochlorothiazide 25 mg 01/31/18 10:00 02/05/18 09:52 Hctz - PO 25 mg DAILY [facility] Administration Hydrocortisone 25 mg 01/31/18 10:00 02/05/18 10:43 Cortef - PO 25 mg DAILY [facility] Administration Hydrocortisone 15 mg 01/30/18 22:00 02/05/18 21:02 Cortef - PO 15 mg HS [facility] Administration Insulin Aspart 15 units 01/31/18 11:00 02/05/18 16:46 Novolog Vial SQ 15 unit TIDAC [facility] Administration Protocol Insulin Aspart 1 vial 02/01/18 16:30 02/05/18 21:07 Novolog Vial Sliding Scale - SQ 8 units ACHS [facility] Administration Protocol Insulin Detemir 50 units 01/30/18 22:00 02/05/18 21:08 Levemir Vial SQ 50 units HS [facility] Administration Lactic Acid 1 applic 01/30/18 19:24 Lac-Hydrin 12 TP DAILY PRN DRY SKIN Lisinopril 20 mg 01/31/18 10:00 02/05/18 09:52 Prinivil PO 20 mg DAILY [facility] Administration Loperamide HCl 4 mg 01/30/18 19:42 Imodium - PO Q6H PRN DIARRHEA Magnesium Citrate 300 ml 01/30/18 19:42 Citroma - PO Q48H PRN CONSTIPATION Magnesium Hydroxide 30 ml 01/30/18 19:42 Milk Of Magnesia - PO DAILY PRN CONSTIPATION Melatonin 5 mg 01/30/18 22:00 Melatonin PO HS PRN INSOMNIA Metoprolol Tartrate 25 mg 01/30/18 22:00 02/05/18 21:01 Lopressor - PO 25 mg HS [facility] Administration Miconazole Nitrate 1 applic 02/04/18 22:00 02/05/18 21:00 Monistat-7 Vaginal Cream - VG 02/10/18 22:01 1 applic HS [facility] Administration Montelukast Sodium 10 mg 01/30/18 22:00 02/05/18 21:00 Singulair - PO 10 mg HS [facility] Administration Multivit/Folic Acid/Iron 1 tab 01/31/18 10:00 02/05/18 09:52 Vitamins (Sjr) - PO 1 tab DAILY [facility] Administration Pseudoephedrine/Triprolidine 1 combo 01/30/18 19:42 Actifed - PO TID PRN NASAL CONGESTION Thiamine HCl 100 mg 01/30/18 22:00 02/05/18 21:00 Vitamin B1 - PO 100 mg HS [facility] Administration Current Side Effect: No Lab tests ordered: Yes Lab tests reviewed: Yes Provider note:: Patient has completed this program today. She has met her treatment goals and will continue to address her issues in outpatient treatment at [facility] at [address] [place] [id number]. Told advertising copywriter that from her participation in this program, she has learned the importance of making meetings and get a sponsor. She is stable for discharge today Total face to face time:: 35 Mental Status Exam - Mental Status Exam Alert and Oriented to: Time, Place, Person Cognitive Function: Fair Patient Appearance: Well Groomed Mood: Hopeful, Euthymic Affect: Appropriate Patient Behavior: Cooperative Speech Pattern: Clear Voice Loudness: Normal Thought Process: Intact, Goal Oriented Thought Disorder: Not Present Hallucinations: Denies Suicidal Ideation: Denies Homicidal Ideation: Denies Insight/Judgement: Fair Sleep: Well Appetite: Good Muscle strength/Tone: Normal Gait/Station: Normal Psychiatric Treatment Plan - Problem List (1) Alcohol dependence Current Visit: Yes (2) Cocaine dependence Current Visit: No Qualifiers: Substance use status: uncomplicated Qualified Code(s): F14.20 - Cocaine dependence, uncomplicated (3) Substance induced mood disorder Current Visit: No (4) Substance-induced sleep disorder Current Visit: No (5) CHF (congestive heart failure) Current Visit: No Qualifiers: Heart failure type: other Qualified Code(s): I50.9 - Heart failure, unspecified (6) COPD with asthma Current Visit: No (7) Diabetes mellitus, type II, insulin dependent Current Visit: Yes (8) Hypercholesteremia Current Visit: No (9) Hypertension Current Visit: No Qualifiers: Hypertension type: essential hypertension Qualified Code(s): I10 - Essential (primary) hypertension Comment: LISINOPRIL+METOPROLOL (10) Positive PPD, treated Current Visit: No Initial treatment plan: Patient is discharged today and referred to [facility] for outpatient treatment
[2018-02-06] MEDS: dilTIAZem HCL 30 MG TABLET (FP) PO SCH (06:50)
[2018-02-06] MEDS: INSULIN SLIDING SCALE (NOVOLOG) 1 VIAL SQ SCH ×2 (06:53→11:43)
[2018-02-06] MEDS: INSULIN (NOVOLOG) ASPART 100 UNITS/ML 10ML VIAL SQ SCH ×2 (06:53→11:43)
[2018-02-06 07:09] VITALS: TEMP 98
[2018-02-06] MEDS ORDERED: PT OWN MED DRAWER 7, Y5N ONE ×2 (08:41→10:36)
[2018-02-06] MEDS: FUROSEMIDE 40 MG TABLET (FP) PO SCH (09:40)
[2018-02-06] MEDS: PRENATAL VITAMINS W/ FOLIC ACID TABLET (FP) PO SCH (09:40)
[2018-02-06] MEDS: LISINOPRIL 20 MG TABLET (FP) PO SCH (09:40)
[2018-02-06] MEDS: HYDROCORTISONE 10 MG TABLET PO SCH (09:41)
[2018-02-06] MEDS: APIXABAN 5 MG TABLET PO SCH (09:41)
[2018-02-06] MEDS: HYDROCHLOROTHIAZIDE 25 MG TABLET (FP) PO SCH (09:42)
[2018-02-06] MEDS: COLLOIDAL OATMEAL 1 BAR EACH TP SCH (09:42)
[2018-02-06] MEDS: BUDESONIDE/FORMETEROL FUMARATE 80/4.5 mcg INHALER IH SCH (09:42)
[2018-02-06] MEDS ORDERED: INSULIN (NOVOLOG) ASPART 100 UNITS/ML 10ML VIAL ONE (11:39)
[2018-02-06 11:55] VITALS: BP 145/94; PULSE 86
--- NOTE | 2018-02-06 12:14 | PN ---
[facility] Progress Note Note: Vital Signs Temperature 98.0 F 02/06/18 07:07 Pulse Rate 86 02/06/18 11:54 Respiratory Rate 20 02/06/18 11:54 Blood Pressure 145/94 02/06/18 11:54 O2 Sat by Pulse Oximetry (%) Patient has completed this program today. Patient medically stable. She will follow up with outpatient treatment at [facility] at [address] [place] [id number] and follow up with her primary care provider within a week. If worsening symptoms patient to follow up with the ED.
== END 2018-02-06 12:45 | disposition home or self-care (01) | DRG 772 ==
LOC: YASAS 18:01 → Y3W 18:04
PROVIDERS: ADMIT Psychiatry & Neurology Psychiatry; ATTEND Psychiatry & Neurology Psychiatry
PROC: HZ42ZZZ Group Counseling for Substance Abuse Treatment, Cognitive-Behavioral (ICD-10-PCS; principal; 2018-01-30)
DX: F10.20 Alcohol dependence, uncomplicated (principal); F14.20 Cocaine dependence, uncomplicated; F19.24 Other psychoactive substance dependence with psychoactive substance-induced mood disorder; F19.282 Other psychoactive substance dependence with psychoactive substance-induced sleep disorder; I10 Essential (primary) hypertension; I50.9 Heart failure, unspecified; I48.91 Unspecified atrial fibrillation; E78.5 Hyperlipidemia, unspecified; E11.65 Type 2 diabetes mellitus with hyperglycemia; J45.909 Unspecified asthma, uncomplicated; J44.9 Chronic obstructive pulmonary disease, unspecified; R76.11 Nonspecific reaction to tuberculin skin test without active tuberculosis; B37.3 Candidiasis of vulva and vagina; L98.8 Other specified disorders of the skin and subcutaneous tissue; E66.9 Obesity, unspecified; Z68.42 Body mass index [BMI] 45.0-49.9, adult; Z79.4 Long term (current) use of insulin
CPT/HCPCS: 82962